=== PATIENT | female | born 1940 | race Caucasian/White ===

== ENCOUNTER 2020-09-14 20:02 | Emergency (ER) | payer OTHER ==
[~2020-09-14] VITALS: Ht 165.1 cm; Wt 131.5 kg
[2020-09-14 20:05] VITALS: BP_SYST 123
[2020-09-15] MEDS ORDERED: ACETAMINOPHEN 325 MG TABLET PO ONE
[2020-09-15 00:40] VITALS: BP_SYST 131
== END 2020-09-15 00:40 | disposition home or self-care (01) ==
LOC: SED 20:02
DX: T83.038A Leakage of other urinary catheter, initial encounter (principal)
CPT/HCPCS: 99284

== ENCOUNTER 2021-08-26 17:03 | Inpatient (IN) | payer OTHER ==
[~2021-08-26] VITALS: Ht 165.1 cm; Wt 97.2 kg
[~2021-08-26 17:03] MED LIST: CARV3.1246 PO; FURO-149 PO; FURO-150 PO; LEVO500T90 PO; LOPE2TAB25 PO; POTA15TA11 PO; SERT-131 PO
--- NOTE | 2021-08-26 17:08 | NUR ---
Patient to ER bed 07 to gown for evaluation. Side rails up.
[2021-08-26 17:09] VITALS: BP_SYST 137
--- NOTE | 2021-08-26 17:41 | NUR ---
Patient was BIB BLS from home c/o pain to bilateral buttocks and heels. Patient states she is bed bound post fall months ago. Asked to clarify details with . Patient is alert, oriented, answers questions appropriately but requests clarification with . Currrently is cared for by family and home health provider. Has nunes in place that has cloudy urine with sediment noted. Dr. Dias at bedside for assessment. Patient morbidly obese, turned to side to evaluate buttocks. 3 large/deep sores noted. Patient currently rates them as painful 3/10. Has healing sore to left heal. O2 sat in low 90s. Patient on 2L via nasal cannula, consistent with use at home. POC reviewed with patient.
--- NOTE | 2021-08-26 17:41 | NUR ---
ER at bedside examining patient.
--- NOTE | 2021-08-26 18:05 | NUR ---
Stepdaughter, Shanthi, is with the patient at the bedside. Stated sores to buttocks occurred approximately 7 weeks ago and she, the [facility] caregiver, has been requesting intervention. One week ago, wound care nurse evaluated and has been waiting for authorization for further evaluation/testing. Today, home health nurse visited patient, saw buttock sores and called 911 against the wishes of the family.
--- NOTE | 2021-08-26 18:43 | NUR ---
3 attempts at IV start unsuccessful, labs drawn by lab, covid and urine already sent
[2021-08-26 18:47] LABS: BILIRUBIN,URINE NEGATIVE (NEGATIVE); CLARITY/URINE CLEAR (CLEAR); COLOR,URINE YELLOW (YELLOW); GLUCOSE,URINE NEGATIVE (NEGATIVE); KETONES,URINE NEGATIVE (NEGATIVE); LEUKOCYTE ESTERASE ,URINE 3+ (NEGATIVE); NITRITE, URINE POSITIVE (NEGATIVE); PH,URINE 6.5 (5.0-8.0); PROTEIN URINE NEGATIVE (NEGATIVE); UROBILINOGEN,URINE 0.2 (0.2-1.0)
[2021-08-26 18:50] LABS: BLOOD, URINE TRACE (NEGATIVE)
[2021-08-26] MEDS ORDERED: POTA15TA11 PO (18:57)
--- NOTE | 2021-08-26 18:58 | NUR ---
Medication reconciliation completed with information provided by pts. stepdajeanie Maki, attempted to clarify some meds. and she was unable to fully assist, stated her dad handels meds. and list given to us not up to date. Pt. also not aware.
[2021-08-26 19:09] LABS: BASOPHILS % (AUTO) 0.4 % (0.0-2.0); EOSINOPHILS % (AUTO) 0.4 % (0.0-4.0); HEMATOCRIT 38.4 % (36-48); HEMOGLOBIN 12.4 g/dL (12.0-16.0); LYMPHOCYTES # (AUTO) 1.5 K/uL (1.0-5.5); LYMPHOCYTES % (AUTO) 15.3 % (20.5-51.5); MEAN CORPUSCULAR HEMOGLOBIN 27 pg (27-31); MEAN CORPUSCULAR HGB CONC 32 % (32-36); MEAN CORPUSCULAR VOLUME 83 fL (79.0-98.0); MONOCYTES # (AUTO) 0.6 K/uL (0.0-1.0); MONOCYTES % (AUTO) 5.9 % (1.7-9.3); NEUTROPHILS # (AUTO) 7.5 K/uL (1.8-7.7); PLATELET COUNT (AUTO) 308 K/uL (130-430); RED BLOOD CELL COUNT(AUTO) 4.65 MIL/uL (4.2-6.2); RED CELL DISTRIBUTION WIDTH 17.2 % (9.0-15.0); WHITE BLOOD COUNT (AUTO) 9.6 K/uL (4.8-10.8)
[2021-08-26 19:10] LABS: ANION GAP 7 (5-15); CALCIUM 8.5 mg/dL (8.4-11.0); CHLORIDE 99 mmol/L (98-107); CREATININE 0.76 mg/dL (0.55-1.30); GLUCOSE 92 mg/dL (70-99); POTASSIUM 4.6 mmol/L (3.5-5.1); SODIUM SERUM 140 mmol/L (136-145); UREA NITROGEN, BLOOD 10 mg/dL (8-21)
[2021-08-26 19:16] LABS: ALANINE AMINOTRANSFERASE 13 U/L (12-78); ALBUMIN 2.2 g/dL (3.4-4.8); ASPARTATE AMINOTRANSFERASE 21 U/L (10-37); TOTAL BILIRUBIN 0.4 mg/dL (0.0-1.0)
[2021-08-26 19:21] LABS: BACTERIA,URINE FEW /HPF (None Seen)
[2021-08-26 19:23] LABS: MUCUS,URINE 1+ /LPF (None Seen); YEAST,URINE Few /HPF (None Seen)
--- NOTE | 2021-08-26 19:33 | NUR ---
REPORT RECEIEVED, PT IN NAD. RESP EVEN AND UNLABORED, ON RA @97%. PT REQUESTING FOOD, WATER AND REPOSITIONING. ASSISTED WITH ALL THREE REQUESTS WITH MAXIMUM ASSIST OF STUDENT NURSE. SAFETY PRECAUTIONS IN PLACE. VSS.
[2021-08-26] MEDS ORDERED: cefTRIAXone 1 GM IVPB PREMIX 50 ML IV ONE (19:45)
--- NOTE | 2021-08-26 19:57 | NUR ---
REPORT GIVEN TO RAHEEM CARMICHAEL, UPDATED ON STATUS AND PLAN OF CARE.
[2021-08-26] MEDS ORDERED: VANCOMYCIN HCL 1,000 MG in NS 250 ML IV ONE (20:15)
[2021-08-26] MEDS ORDERED: ONDANSETRON HCL 4 MG/2 ML VIAL IVP PRN (22:00)
[2021-08-27] VITALS (8 sets, daily range): BP systolic 52–137
[2021-08-27] MEDS ORDERED: VANCOMYCIN HCL 1000 MG/VIAL IV ONE (02:00)
--- NOTE | 2021-08-27 02:25 | NUR ---
REPORT RECIEVED FROM RAHEEM CARMICHAEL. CN INFORMED OF NO DOCUEMENTATION IN BETWEEN.
--- NOTE | 2021-08-27 02:29 | NUR ---
Admit bed requested Patient will be admitted to care of . Admitted to MS unit. Diagnosis UTI/DECUBITUS ULCER Inpatient (Yes or No) Y Observation (Yes or No) N Orientation concerns or request close to nursing station (Yes or No) N Covid Status NEG On vent or bipap N Isolation requirements N Needs a sitter N From Home (Yes or if No enter name of facility) Y Requires Dialysis (Yes or No) N Med Rec Completed (Yes of No) N-PT DOES NOT RECALL
--- NOTE | 2021-08-27 02:31 | NUR ---
SPOKE TO RYNE CARMICHAEL, INFORMED THAT WE NEED BED ASSIGNEMENT
[2021-08-27] MEDS: NORMAL SALINE 5 ML DISP.SYRIN IVF SCH ×4 (02:33→20:53)
--- NOTE | 2021-08-27 02:34 | NUR ---
PT WITH EYES CLOSED, EASILY AROUSBALE. PT IN NAD. DENIES ANY PAIN AT THIS TIME, REPOSITIONED FOR COMFORT, IV VANCO INFUSING VIA PUMP ORDERED.
--- NOTE | 2021-08-27 03:01 | NUR ---
REPORT GIVEN TO RUCHI CARMICHAEL, UPDATED ON STATUS, LABS AND VITALS. PT STABLE FOR TRANSFER.
--- NOTE | 2021-08-27 04:00 | NUR ---
ADMISSION: The patient, MAIKEL LOZANO, 81 y/o, F admitted by AMADOR AGUILAR MD, was given written information regarding hospital policies, unit procedures and contact persons, belongings were checked and documented, pressure ulcer pictures taken and place in the chart, wound dressing done, pt aox2 episodes of confusion and forgetfulness, hard of hearing pt denies, report problem with vision denies any blindness,denies any medical condition, pt repositioned per comfort, side rails upx2, bed in lowest position, call light within reach, heels off loaded with pillows, wound culture swab and mrsa done and sent to lab, educated pt to call for assistance when needed, pt verbalized understanding, will continue to monitor.
--- NOTE | 2021-08-27 06:08 | NUR ---
PT RESTING COMFORTABLY IN BED, DENIES PAIN, NO S/S OF DISTRESS OR DISCOMFORT NOTED, REPOSITIONED PER COMFORT, WILL CONTINUE TO MONITOR.
--- NOTE | 2021-08-27 06:19 | NUR ---
Patient will be admitted to care of DR AGUILAR. Admitted to unit. Will go to room . Belongings list completed. Complete and up to date summary report printed. SBAR report to be given at bedside with opportunity for questions.
--- NOTE | 2021-08-27 07:33 | NUR ---
SHIFT CHANGE NOTE REPORT GIVEN TO JANY ALEXANDER FOR CONTINUITY OF CARE, ALL QUESTIONS WERE ANSWERED AND RN VERBALIZED UNDERSTANDING.
[2021-08-27 07:44] LABS: BASOPHILS % (AUTO) 0.4 % (0.0-2.0); EOSINOPHILS % (AUTO) 0.3 % (0.0-4.0); HEMATOCRIT 35.6 % (36-48); HEMOGLOBIN 11.6 g/dL (12.0-16.0); LYMPHOCYTES # (AUTO) 0.9 K/uL (1.0-5.5); LYMPHOCYTES % (AUTO) 10.7 % (20.5-51.5); MEAN CORPUSCULAR HEMOGLOBIN 27 pg (27-31); MEAN CORPUSCULAR HGB CONC 32 % (32-36); MEAN CORPUSCULAR VOLUME 82 fL (79.0-98.0); MONOCYTES # (AUTO) 0.5 K/uL (0.0-1.0); MONOCYTES % (AUTO) 6.6 % (1.7-9.3); NEUTROPHILS # (AUTO) 6.6 K/uL (1.8-7.7); PLATELET COUNT (AUTO) 314 K/uL (130-430); RED BLOOD CELL COUNT(AUTO) 4.36 MIL/uL (4.2-6.2); RED CELL DISTRIBUTION WIDTH 17.2 % (9.0-15.0); WHITE BLOOD COUNT (AUTO) 8.1 K/uL (4.8-10.8)
[2021-08-27 08:02] LABS: ALANINE AMINOTRANSFERASE 15 U/L (12-78); ALBUMIN 2.2 g/dL (3.4-4.8); ANION GAP 6 (5-15); ASPARTATE AMINOTRANSFERASE 20 U/L (10-37); CALCIUM 7.9 mg/dL (8.4-11.0); CHLORIDE 98 mmol/L (98-107); CREATININE 0.69 mg/dL (0.55-1.30); GLUCOSE 85 mg/dL (70-99); SODIUM SERUM 139 mmol/L (136-145); TOTAL BILIRUBIN 0.4 mg/dL (0.0-1.0); UREA NITROGEN, BLOOD 9 mg/dL (8-21)
[2021-08-27 08:59] LABS: POTASSIUM 2.9 mmol/L (3.5-5.1)
--- NOTE | 2021-08-27 09:00 | NUR ---
CRITICAL LAB: [place] from Laboratory called with critical lab value . Medical record number and patient name verified. Read back of values done. Paged Dr. Royal to notify of value. Awaiting for call back and orders.
--- NOTE | 2021-08-27 09:02 | NUR ---
PAGED PAGED AMADOR WISEMAN AT [phone] SPOKE WITH COLLETTE.
--- NOTE | 2021-08-27 09:25 | NUR ---
APS report made, case # [id number], SOC form completed and emailed back, our social service dept. also aware
[2021-08-27] MEDS ORDERED: POTASSIUM CHLORIDE 20 MEQ/PKT PACKET PO ONE (10:00)
--- NOTE | 2021-08-27 10:00 | NUR ---
CONSULTATION PAGED/CALLED Reason for Consultation: [] DECUBITUS ULCER Person Who was Notified: [] SEAN Consulting Physician: [] DR CHAVEZ Experimental Technician Specialty: [] ID Ordering Physician: [] DR AGUILAR
--- NOTE | 2021-08-27 10:57 | NUR ---
Bean Picker Machine Operator DIGITAL MARKETING ANALYSTDeb Cabrera received a request from ED JANY Sprague for support with APS report completion. OJ Cabrera scanned and emailed JANY Sprague's completed report to; [email or web address] DIGITAL MARKETING ANALYST will continue to be available as needed
--- NOTE | 2021-08-27 11:20 | NUR ---
Cage Operator OJ Bundyette responded to a request for social service support from ED RN Darcie to inquire into home situation. SPEECH LANGUAGE PATHOLOGY ASSISTANT Deborah met with patient at bedside. Patient was laying in bed, awake, alert and oriented x4. SPEECH LANGUAGE PATHOLOGY ASSISTANT completed introductions, reason for referral, and provided business card. Patient was open to contact. Current concern-Patient resides at home with and stepdaughter. Patient shares she has bedbound for several months, and expressed this was due to pain from wounds and obesity. She was brought in via ambulance due to 3 large decubitus ulcers on buttocks. Social- Patient resides with her Renato Peace . Her step-daughter Shanthi Peace moved into their home in 02/2021 to assist and support with care. Patient also has a daughter Deirdre who resides in [place] and a son Kevin who resides in [place]. to clarify previous notes from ED, according to patient she does not receive IHSS services, Shanthi (step-daughter) is a caregiver under IHSS for her younger brother who is not in the home Supports- Patient shares she receives the following: Home health care via [facility], but it has been discontinued due to hospitalization. This including nurse 1x weekly for Landrum care, bathing (Tuesday & ) and 1x wound assessment Wound Care- Ariel with [facility] wound care nurse 1x week PCP- Dr. Kayleigh Henry Cultural/Spiritual considerations- Patient shared she is Hoahaoism, and refrains from caffeine and alcohol ingestion. SPEECH LANGUAGE PATHOLOGY ASSISTANT encouraged patient to utilize her family for additional support at home. Patient shares she is feeling "a little depressed" due to a lack of socialization. She shared she was a "social butterfly" and was active in her uatsdin prior to COVID. Patient denies any past or current SI. SPEECH LANGUAGE PATHOLOGY ASSISTANT informed patient that she can request for spiritual support while in the hospital including bedside prayer if person is vaccinated or can supply negative COVID test. SPEECH LANGUAGE PATHOLOGY ASSISTANT encouraged patient to reach out to uatsdin groups for additional support. SPEECH LANGUAGE PATHOLOGY ASSISTANT will continue to be available as needed. Addendum: 08/27/21 at 1616 by Deborah MCWILLIAMS OJ Cabrera met with patient and patient's marixa Maki at bedside. In an effort to offer support, OJ inquired into [facility] faxing an appeal to facility regarding discharge as patient has not received a discharge order. According to patient and Shanthi, they have not contacted [facility]. Shanthi also shared her father Renato (patient's ) had been contacted Tuesday08/26/2021 night by [facility], but was unsure of the details. According to Shanthi, patient's home health provider [facility] has discharged her due to hospitalization and expressed a concern that that may be who contacted [facility]. Concerns- Patient and Shanthi expressed their concerns if patient will need home health care particularly if they will be assigned [facility]. According to Shanthi, they had shared concerns over patient's wounds to nurse but they were told "it's not in our orders to do that" hence their uncomfortableness with utilizing same provider if the need arises. DME- Shanthi shared the patient also has bariatric wheelchair, bariatric commode, kwesi lift, and a chair that assist her with standing up.
[2021-08-27] MEDS: VANCOMYCIN HCL 1,500 MG in NS 250 ML IV SCH (14:30)
--- NOTE | 2021-08-27 15:00 | NUR ---
Wound assessment done with Gopi CARMICHAEL with wound care recommendation.
--- NOTE | 2021-08-27 15:00 | NUR ---
Wound Evaluation Attempted: Attempted wound evaluation but was called away for an urgent matter. We will perform wound evaluation on 08/28/2021.
--- NOTE | 2021-08-27 15:30 | NUR ---
Pt refused to change nunes with 16 icelandic nunes at this time. pt requesting to replace with the same size she currently has, 24f nunes. Gopi RN to assist me with looking for 24 icelandic nunes.
--- NOTE | 2021-08-27 16:02 | NUR ---
Received a phone call and FAX from [facility] case #[id number] for the patient, requested medical records. I called back to [facility] [phone] and left a message stating there was no discharge to be appealed.
--- NOTE | 2021-08-27 16:36 | NUR ---
CONSULTATION PAGED/CALLED Reason for Consultation: [] DIARRHEA Person Who was Notified: [] CHEMA Consulting Physician: [] DR Bryan HERNANDEZ Laserist Specialty: [] GI Ordering Physician: [] DR AGUILAR
--- NOTE | 2021-08-27 16:36 | NUR ---
CONSULTATION PAGED/CALLED Reason for Consultation: [] CHF Person Who was Notified: [] MARIA LUISA Consulting Physician: [] DR HYMAN Hot Water Heater Installer Specialty: [] CARDIO Ordering Physician: [] DR AGUILAR
--- NOTE | 2021-08-27 16:39 | NUR ---
CONSULTATION PAGED/CALLED Reason for Consultation: [] LEG WEAKNESS Person Who was Notified: [] DR Donavon KEENE Consulting Physician: [] DR Donavon KEENE Proof Press Operator Specialty: [] NEURO Ordering Physician: [] DR AGUILAR
[2021-08-27] MEDS ORDERED: BALSAM PERU/CASTOR OIL 56.7 GM OINT...G. TP ONE (17:00)
[2021-08-27] MEDS: FLUCONAZOLE 100 mg/ NS 50 ML IV SCH (17:30)
[2021-08-27] MEDS: FUROSEMIDE 20 MG TABLET PO SCH (18:00)
--- NOTE | 2021-08-27 18:00 | NUR ---
Removed 24 jamaican nunes and attempted to replace with the same size. Unable to place 24 jamaican for there was resistance. 4 rns attempted to insert new nunes without success. Able to insert 16 jamaican nunes draining with yellow cloudy urine. Inserted flexiseal to protect skin. Pt has frequent loose/diarrhea stool. Stool for C-diff sent.
--- NOTE | 2021-08-27 19:00 | NUR ---
Unable to initiate wound dressing to bilateral ishium. Awaiting for venelex ointment. All supply at bedside except oinment.
[2021-08-27] MEDS ORDERED: cefTRIAXone 1 GM IVPB PREMIX 50 ML IV SCH (19:45)
--- NOTE | 2021-08-27 20:00 | NUR ---
RECIEVED IN BED ASSESSMENT COMPLETE PLAN OF CARE REVIEWED CALL LIGHT IN REACH AND PT ADVISED TO USE CALL LIGHT FOR ASSISTANCE. PT MONTOYA CATHETER IN PLACE AND DRAINING FLEXISEAL IN PLACE WITH STOOL NOTED IN DRAINGE BAG PT DRESSING CHANGED TO BILATERAL ISCHIUM WILL TURN AND REPOSTION Q 2 HOURS PT DENIES PAIN AT THIS TIME AND ENDORSES SHE TAKES MEDICAITON AT HOME TO SLEEP BUT COULD NOT RECALL MEDICAITON NOTIFIED AND NEW ORDER FOR ADRIANA X1 ORDERED WILL CONTINUE TO MONITOR AND ASSESS
[2021-08-27] MEDS ORDERED: ZOLPIDEM TARTRATE 5 MG TABLET PO ONE (20:15)
[2021-08-27] MEDS: CEFEPIME 2 GM in D5W 100 ML IV SCH (20:46)
[2021-08-27] MEDS: CARVEDILOL 3.125 MG TABLET (COREG) PO SCH (20:47)
--- NOTE | 2021-08-27 23:42 | NUR ---
RESTING AMBIEN GIVEN TURNED AND REPOSITIONED CALL LIGHT IN REACH WILL CONTINUE TO MONITOR AND ASSESS
[2021-08-28 00:44] VITALS: BP_SYST 113
--- NOTE | 2021-08-28 05:55 | NUR ---
NO SIGNIFICANT CHANGES AT THIS TIME ALL NEEDS ANTICIPATED TURNED AND REPOSITIONED Q 2 HOURS WILL ENDORSE CARE TO ONCOMING LICENSED NURSE
[2021-08-28] MEDS: NORMAL SALINE 5 ML DISP.SYRIN IVF SCH ×3 (06:18→20:49)
--- NOTE | 2021-08-28 07:20 | NUR ---
OPENING NOTE: REPORT RCVD FROM OUTGOING NOC RN, ALL CARES ASSUMED. (JANY LUQUE)
[2021-08-28 07:22] LABS: BASOPHILS % (AUTO) 0.4 % (0.0-2.0); EOSINOPHILS % (AUTO) 0.4 % (0.0-4.0); HEMOGLOBIN 10.8 g/dL (12.0-16.0); LYMPHOCYTES # (AUTO) 1.1 K/uL (1.0-5.5); LYMPHOCYTES % (AUTO) 14.2 % (20.5-51.5); MEAN CORPUSCULAR HEMOGLOBIN 27 pg (27-31); MEAN CORPUSCULAR HGB CONC 33 % (32-36); MEAN CORPUSCULAR VOLUME 82 fL (79.0-98.0); MONOCYTES # (AUTO) 0.6 K/uL (0.0-1.0); MONOCYTES % (AUTO) 7.8 % (1.7-9.3); NEUTROPHILS # (AUTO) 5.8 K/uL (1.8-7.7); NEUTROPHILS % (AUTO) 77.2 % (40.0-70.0); PLATELET COUNT (AUTO) 278 K/uL (130-430); RED BLOOD CELL COUNT(AUTO) 4.04 MIL/uL (4.2-6.2); RED CELL DISTRIBUTION WIDTH 17.1 % (9.0-15.0); WHITE BLOOD COUNT (AUTO) 7.5 K/uL (4.8-10.8)
--- NOTE | 2021-08-28 07:36 | NUR ---
DR. HYMAN MAKING ROUNDSMD AT BEDSIDE VERBAL REPORT GIVEN, TO REVIEW CHART AND PLACE NEW ORDERS.
--- NOTE | 2021-08-28 07:51 | NUR ---
DR. KEENE MAKING ROUNDS, VERBAL BEDSIDE REPORT GIVEN.
[2021-08-28 08:23] LABS: ALANINE AMINOTRANSFERASE 10 U/L (12-78); ALBUMIN 2.1 g/dL (3.4-4.8); ANION GAP 3 (5-15); ASPARTATE AMINOTRANSFERASE 18 U/L (10-37); CALCIUM 7.7 mg/dL (8.4-11.0); CHLORIDE 102 mmol/L (98-107); CREATININE 0.73 mg/dL (0.55-1.30); GLUCOSE 94 mg/dL (70-99); POTASSIUM 3.7 mmol/L (3.5-5.1); SODIUM SERUM 138 mmol/L (136-145); TOTAL BILIRUBIN 0.3 mg/dL (0.0-1.0); UREA NITROGEN, BLOOD 11 mg/dL (8-21)
--- NOTE | 2021-08-28 08:51 | NUR ---
PATIENT TAKEN TO CT BY JANAE PIERRE
[2021-08-28] MEDS: BALSAM PERU/CASTOR OIL 56.7 GM OINT...G. TP SCH (09:00)
--- NOTE | 2021-08-28 09:15 | NUR ---
Received a phone call from [facility] closed-there is no DC for the patient.
[2021-08-28] MEDS: CEFEPIME 2 GM in D5W 100 ML IV SCH ×2 (09:20→20:48)
[2021-08-28] MEDS: FUROSEMIDE 40 MG TABLET PO SCH (09:21)
[2021-08-28] MEDS: CARVEDILOL 3.125 MG TABLET (COREG) PO SCH ×2 (09:21→20:48)
[2021-08-28] MEDS: POTASSIUM CHLORIDE 20 MEQ TAB.PRT.SR PO SCH ×2 (09:21→20:48)
--- NOTE | 2021-08-28 10:01 | NUR ---
DR. AGUILAR MAKING ROUNDS, BEDSIDE REPORT GIVEN. MD TO REVIEW CHART AND PLACE ORDERS.
[2021-08-28 11:31] VITALS: BP_SYST 125
--- NOTE | 2021-08-28 12:08 | NUR ---
PHYSICAL THERAPY AT SIDE ASSESSING PATIENT.
--- NOTE | 2021-08-28 13:11 | NUR ---
RN ROUNDS: AMBER-CARE AND MONTOYA CARE PROVIDED WITH USING CHG WIPES, PATIENT TOLERATED WELL. LARGE LIQUID STOOL, WOUND NURSE TO ASSIST WITH WOUND CARE AT 1400.
--- NOTE | 2021-08-28 13:45 | NUR ---
<PT TREATMENT ONCE DAILY X 5 DAYS WEEKLY X 4 WEEKS FOR TRAINING, IN: THERAPEUTIC ACTIVITY, THERAPEUTIC EXERCISE, CAREGIVER, ASSISTANCE.>
--- NOTE | 2021-08-28 14:55 | NUR ---
WOUND CARE COMPLETED WITH WOUND NURSE.
[2021-08-28] MEDS: VANCOMYCIN HCL 1,500 MG in NS 250 ML IV SCH (14:56)
--- NOTE | 2021-08-28 15:04 | NUR ---
WOUND EVALUATION: Wound Consult received from Dr. Royal. Thank you, Dr. Royal, for the consult. Patient received in a Mooers Bed with a mattress, awake, alert, and oriented. Patient is unable to turn independently. Nitish Score is a 12. Past Medical History: Atrial-Fibrillation, CHF. Recent Labs: WBC 7.5, RBC 4.04, hemoglobin 10.8, hematocrit 33.0, ESR 28, BUN 11, creatinine 0.73, calcium 7.7, ALT 10, serum total protein 5.0, albumin 2.1. Microbiology: Urine culture results in progress. Pressure ulcer culture results in progress. MRSA screen results in progress. Stool C. difficile results in progress. Blood culture results x2 in progress. Intrinsic factors that delay wound healing: Atrial-Fibrillation, CHF, Hypoalbuminemia. Extrinsic factors that delay wound healing: Decreased mobility. Wound Assessment: 1. Left Buttock near Ischium: Unstageable pressure ulcer, present on admission. Wound bed has 50% black slough, 40% yellow slough, 10% pink tissue. No odor, scant yellow drainage. Periwound intact. Wound measures 12.6 cm x 8.0 cm x 2.5 cm. Sinus tract present at 8 o'clock measuring 2.0 cm. 2. Right Buttock near Ischium: Stage IV pressure ulcer, present on admission. Wound bed has 55% yellow slough, 40% black slough, 5% pink tissue. No odor, scant yellow drainage. Periwound intact. Wound measures 7.0 cm x 5.4 cm x 5.0 cm. Sinus tract present at 8 o'clock measuring 5.0 cm. Sinus tract present at 11 o'clock measuring 7.8 cm with hard end feel Recommend: Cleanse wounds with normal saline. Apply Venelex ointment to wound beds. First pack sinus tract areas, then pack wound areas with 1/2 inch iodoform packing strip. Apply moisture barrier cream to bethel-wounds. Cover with non-adhesive foam dressings, secure with transparent dressings. Perform wound care daily, and as needed for dressing soiling or dislodgement. 3. Left Heel Chronic unstageable pressure ulcer, present on admission. Wound bed has 80% brown eschar, 10% black eschar, 10% yellow eschar. No odor, no drainage. Periwound intact. Wound measures 1.0 cm x 1.1 cm. Recommend: [place] wound site with Betadine. Allowed to air dry. Cover wound site with foam dressing. Elevate, offload and float bilateral heels with 1 pillow lengthwise under each extremity at all times. Not allow heel to touch bed or other surfaces at any time. 4. Right Heel: Blanchable redness, present on admission. Recommend: Elevate, offload and float bilateral heels with 1 pillow lengthwise under each extremity at all times. Not allow heel to touch bed or other surfaces at any time. Also recommend: Reposition patient side to side only every 2 hours with pillow support and off-load pressure areas with pillows for pressure re-distribution. Offload, elevate and float bilateral heels with one pillow lengthwise under each extremity at all times. Perform skin care and monitor skin integrity Q shift. Use moisture barrier cream on buttocks and other moisture susceptible areas QID and as needed for soiling. Place patient on a P500 low air-loss mattress. Recommend surgical consult for removal of necrotic tissue to enhance wound healing abilities.
[2021-08-28 15:47] VITALS: BP_SYST 130
--- NOTE | 2021-08-28 17:32 | NUR ---
DR. MORALES AT BEDSIDE ASSESSING WOUNDS, TO SCHEDULE SURGERY FOR TOMORROW AM 08.29.2021 FOR WOUND DEBRIDEMENT.
[2021-08-28] MEDS: FLUCONAZOLE 100 mg/ NS 50 ML IV SCH (17:34)
--- NOTE | 2021-08-28 17:40 | NUR ---
SHERIFF OLMOS AT BEDSIDE SPEAKING TO PATIENT.
[2021-08-28] MEDS: FUROSEMIDE 20 MG TABLET PO SCH (18:19)
--- NOTE | 2021-08-28 18:57 | NUR ---
CLOSING NOTE: REPORT GIVEN TO NOC RN, ALL CARE ENDORSED.
[2021-08-28 19:30] VITALS: BP_SYST 110
--- NOTE | 2021-08-28 19:30 | NUR ---
PM ASSESSMENT; -Pt is a/ox3, resting in bed. Pt denies any chest pain,pain,sob,or any acute distress. VSS. IV site patent, no s/s any infiltration noted. Landrum cath w/ gravity drains yellow urine output. Flexiseal in place drains loose yellow stool. 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 MORALES unscheduled time for tomorrow, pt verbalized understanding. Fall precaution in place. Call light w/in reach. Side rails x3. Turned & repositioned and q2 hrs prn. Continue to monitor pt.
[2021-08-28] MEDS: ACETAMINOPHEN 325 MG TABLET PO PRN (20:58)
--- NOTE | 2021-08-28 20:58 | NUR ---
PAIN MGMT; -Pt is c/o generalized pain 3/10, gave Tylenol po for pain mgmt. Will reassess pain level w/in an hour.
--- NOTE | 2021-08-28 21:58 | NUR ---
ROUNDS; -Pt is asleep. NO s/s any pain,sob,or any acute distress noted. All safety measures in place. Bed alarmed. Call light w/in reach. Cont to monitor pt.
--- NOTE | 2021-08-28 22:15 | NUR ---
NOTES; PAGED DR. MORALES REGARDING PT WILL BE NPO AFTER MIDNIGHT AND NO IVF ORDER -called and spoke with Rah (heater operator helper) to page Dr. Morales regarding pt will be NPO after midnight and no IVF order. Now, waiting for md to return callback.
--- NOTE | 2021-08-28 22:35 | NUR ---
NOTES; Dr. Chavis called back and ordered NS @ 70ml/hr after midnight when pt is NPO
[2021-08-28] MEDS ORDERED: NACL 0.9% 1,000 ML IV SCH (22:45)
--- NOTE | 2021-08-29 00:05 | NUR ---
ROUNDS; NPO STATUS AFTER MIDNIGHT -Pt is asleep. NO s/s any pain,sob,or any acute distress noted. Starting NS @70ml/hr after NPO status. All safety measures in place. Bed alarmed. Call light w/in reach. Cont to monitor pt.
[2021-08-29 01:50] VITALS: BP_SYST 119
--- NOTE | 2021-08-29 02:00 | NUR ---
ROUNDS; -Pt is asleep. NO s/s any pain,sob,or any acute distress noted. IVF infusing well, no s/s any infiltration noted. All safety measures in place. Bed alarmed. Call light w/in reach. Cont to monitor pt.
[2021-08-29] MEDS: NORMAL SALINE 5 ML DISP.SYRIN IVF SCH (05:09)
--- NOTE | 2021-08-29 06:35 | NUR ---
CLOSING NOTES; -Pt is resting in bed. No s/s any chest pain,pain,sob,or any acute distress noted. IVF infusing well. IV site patent, no s/s any infiltration noted. Landrum cath w/ gravity drains yellow urine output. Flexiseal in place drains loose yellow and semi solid stool noted. 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 MORALES unscheduled time for tomorrow, pt verbalized understanding. Fall precaution in place. Call light w/in reach. Side rails x3. Will endorse to day shift RN to cont care.
[2021-08-29 07:19] LABS: PROTHROMBIN TIME 10.6 SECS (9.5-12.5)
--- NOTE | 2021-08-29 07:34 | NUR ---
OPENING NOTE: REPORT RCVD FROM OUTGOING NOC RN, ALL CARES ASSUMED. (JANY LUQUE)
--- NOTE | 2021-08-29 08:30 | NUR ---
DR. MORALES SPOKE WITH OVER PHONE, CONSENT RC'VD OVER PHONE FOR PROCEDURE. PRIMARY NURSE SERVED WITNESS, CONSENT SIGNED.
--- NOTE | 2021-08-29 08:45 | NUR ---
PER MD PATIENT REMAINS NPO FOR SURGERY, NO AM MEDICATIONS GIVEN.
[2021-08-29] MEDS: CEFEPIME 2 GM in D5W 100 ML IV SCH ×2 (08:57→22:13)
[2021-08-29] MEDS: POTASSIUM CHLORIDE 20 MEQ TAB.PRT.SR PO SCH ×2 (09:00→20:37)
[2021-08-29] MEDS: FUROSEMIDE 40 MG TABLET PO SCH (09:00)
[2021-08-29] MEDS: CARVEDILOL 3.125 MG TABLET (COREG) PO SCH ×2 (09:00→20:37)
--- NOTE | 2021-08-29 09:00 | NUR ---
DR. MORALES MAKING ROUNDS, PER DR. MOARLES SURGERY HAS BEEN CANCELLED DUE TO SCHEDULE CONFLICT. PER DR. MORALES HE WILL MAKE STAFFING AWARE OF NEW TIME FOR PROCEDURE. CHARGE NURSE HAS BEEN MADE AWARE AND LABORER OPERATOR AWARE.
[2021-08-29] MEDS: BALSAM PERU/CASTOR OIL 56.7 GM OINT...G. TP SCH (09:53)
--- NOTE | 2021-08-29 10:42 | NUR ---
PER DR. MORALES PATIENT TO REMAIN NPO
--- NOTE | 2021-08-29 10:44 | NUR ---
DR. CASTILLO MAKING ROUNDS, VERBAL BEDSIDE REPORT GIVEN. NO NEW ORDERS AT THIS TIME.
[2021-08-29] MEDS: D5/0.45 NS 1,000 ML IV SCH ×2 (11:31→22:13)
--- NOTE | 2021-08-29 13:44 | NUR ---
PATIENT PLACED ONTO CONTACT ISOLATION FOR CHEMICAL LABORATORY CHIEF PER LAB RESULTS, AWARE.
--- NOTE | 2021-08-29 14:01 | NUR ---
DR. ARAIZA MAKING ROUNDS, VERBAL BEDSIDE REPORT GIVEN NO NEW ORDERS FROM NEUROLOGY.
--- NOTE | 2021-08-29 14:08 | NUR ---
PAGED DR. HOWELL TO MAKE HER AWARE OF CULTURE RESULTS, PENDING RETURN CALL.
--- NOTE | 2021-08-29 14:18 | NUR ---
SPOKE WITH DR. LYNDA MD AWARE OF CRUSHER FOREMAN CULTURE RESULTS, NO NEW ORDERS. CONTINUE WITH CURRENT ABX TREATMENT PLAN,
--- NOTE | 2021-08-29 15:01 | NUR ---
Dietitian Recommendations * Consider advance to Cardiac diet, Ensure Enlive BID, Rajesh BID if/when medically appropriate LP, RD Please refer to Nutrition Assessment for details. Addendum: 08/29/21 at [address] Amended: Links added.
[2021-08-29] MEDS: VANCOMYCIN HCL 1,500 MG in NS 250 ML IV SCH (15:35)
--- NOTE | 2021-08-29 15:54 | NUR ---
PIV TO LEFT FOREARM INFILTRATED, PIV REMOVED AND WARM COMPRESS APPLIED. PATIENT DENIES ANY PAIN AND OR DISCOMFORT.
--- NOTE | 2021-08-29 15:56 | NUR ---
PATIENT IS A DIFFICULT PIV STICK, UNABLE TO GAIN PIV ACCESS. PAGED FOR PICC ORDER FOR RESIDENTIAL USE OF ANTIBIOTIC THERAPY.
--- NOTE | 2021-08-29 15:59 | NUR ---
PICC LINE ORDER OBTAINED FROM
--- NOTE | 2021-08-29 16:00 | NUR ---
CONSENT OBTAINED FROM MARIO AND VERIFIED BY SECOND RN FOR PICC PLACEMENT.
[2021-08-29 17:01] VITALS: BP_SYST 103
--- NOTE | 2021-08-29 17:01 | NUR ---
PICC NURSE CALLED, WILL COME AND PLACE PICC ON NOC SHIFT.
[2021-08-29] MEDS: FLUCONAZOLE 100 mg/ NS 50 ML IV SCH (17:03)
--- NOTE | 2021-08-29 17:03 | NUR ---
UNABLE TO ADMINISTER IVPB ANTIBIOTICS, PATIENT HAS NO IV ACCESS.
[2021-08-29] MEDS: FUROSEMIDE 20 MG TABLET PO SCH (18:00)
--- NOTE | 2021-08-29 18:51 | NUR ---
CLOSING NOTE: REPORT GIVEN TO OUT GOING NOC RN, ALL CARES ENDORSED.
[2021-08-29 19:40] VITALS: BP_SYST 100
--- NOTE | 2021-08-29 19:40 | NUR ---
PM ASSESSMENT; -Pt is a/ox3, resting in bed. Pt denies any chest pain,pain,sob,or any acute distress. Tavo-PICC line RN is here to insert PICC line. NO IV access this time. Landrum cath w/ gravity drains yellow urine output. Flexiseal in place. 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 MORALES unscheduled time for tomorrow, pt verbalized understanding. Contact isolation for SILVERWARE WASHER of wounds and urine. Fall precaution in place. Call light w/in reach. Side rails x3. Turned & repositioned and q2 hrs prn. Continue to monitor pt.
--- NOTE | 2021-08-29 20:22 | NUR ---
NOTES; Tavo-PICC Line RN inserted 2 ports PICC line or Rt upper extremity and CXR confirmed in place. -Corbin stated," It's ok to use PICC line of RUE with 2 ports." Both ports of PICC line good blood returns after flushed w/ NS,drsg cdi. Starting to complete Vancomycin IVPB from day shift. Cont to monitor if any s/s any infiltration.
--- NOTE | 2021-08-29 22:12 | NUR ---
ROUNDS; -Pt awake, resting in bed.Pt denies any pain,sob,or any acute distress. RUE PICC line drsg cdi, no s/s any infiltration noted. Infusing Maxipime IVPB. Contact isolation in place. All safety measures in place. Bed alarmed. Call light w/in reach. Cont to monitor pt.
--- NOTE | 2021-08-30 | NUR ---
ROUNDS; -Pt is resting in bed comfortably. Pt denies any pain,sob,or any acute distress. RUE PICC line drsg cdi, no s/s any infiltration noted. IVF infusing well. Contact isolation in place. All safety measures in place. Bed alarmed. Call light w/in reach. Cont to monitor pt.
[2021-08-30 00:29] VITALS: BP_SYST 133
--- NOTE | 2021-08-30 02:00 | NUR ---
ROUNDS; -Pt is asleep. No s/s any pain,sob,or any acute distress noted. IVF infusing well. Contact isolation in place. All safety measures in place. Bed alarmed. Call light w/in reach. Cont to monitor pt.
--- NOTE | 2021-08-30 05:00 | NUR ---
NOTES;WOUND CARES & DRSG CHANGED OF LEFT & RT ISCHIUM -cleaned w/ NS, applied Venelex on wound beds; packing with 1/2 inch iodofoam with non-adhesive foam and adhesive foam over it. now melita ischium drsgs cdi, pt tolerated well.
--- NOTE | 2021-08-30 06:26 | NUR ---
CLOSING NOTES; -Pt is resting in bed. No s/s any chest pain,pain,sob,or any acute distress noted. IVF infusing well. RUE PICC line drsg, no s/s any infiltration noted. Landrum cath w/ gravity drains yellow urine output. Flexiseal in place drains loose yellow and semi solid stool noted. Pt will have debridement rt & lt trochenteric decubitus gangrene infected wounds by Dr. Chavis around 1300. Fall precaution in place. Call light w/in reach. Side rails x3. Maintains contact isolation entire time. Will endorse to day shift RN to cont care.
[2021-08-30 06:49] LABS: BASOPHILS % (AUTO) 0.5 % (0.0-2.0); EOSINOPHILS % (AUTO) 0.5 % (0.0-4.0); HEMATOCRIT 34.3 % (36-48); HEMOGLOBIN 11.2 g/dL (12.0-16.0); LYMPHOCYTES # (AUTO) 0.9 K/uL (1.0-5.5); LYMPHOCYTES % (AUTO) 15.5 % (20.5-51.5); MEAN CORPUSCULAR HEMOGLOBIN 27 pg (27-31); MEAN CORPUSCULAR HGB CONC 33 % (32-36); MEAN CORPUSCULAR VOLUME 82 fL (79.0-98.0); MONOCYTES # (AUTO) 0.4 K/uL (0.0-1.0); MONOCYTES % (AUTO) 6.4 % (1.7-9.3); NEUTROPHILS # (AUTO) 4.7 K/uL (1.8-7.7); NEUTROPHILS % (AUTO) 77.1 % (40.0-70.0); PLATELET COUNT (AUTO) 234 K/uL (130-430); RED BLOOD CELL COUNT(AUTO) 4.18 MIL/uL (4.2-6.2); RED CELL DISTRIBUTION WIDTH 17.5 % (9.0-15.0)
[2021-08-30 07:03] LABS: ANION GAP 5 (5-15); CALCIUM 7.5 mg/dL (8.4-11.0); CHLORIDE 102 mmol/L (98-107); CREATININE 0.66 mg/dL (0.55-1.30); GLUCOSE 83 mg/dL (70-99); POTASSIUM 3.1 mmol/L (3.5-5.1); SODIUM SERUM 139 mmol/L (136-145); UREA NITROGEN, BLOOD 11 mg/dL (8-21)
--- NOTE | 2021-08-30 08:00 | NUR ---
RECEIVED PT IN THE AM PT STABLE VSS NO DISTRESS NOTED, PT CALM COOPERATIVE, SCHEDULED FOR SURGERY TODAY PT AWARE NPO SINCE MIDNIGHT, PT STABLE.
[2021-08-30 08:17] LABS: C-REACTIVE PROTEIN QUANT 2.6 mg/dL (0-0.5)
[2021-08-30] MEDS: POTASSIUM CHLORIDE 20 MEQ TAB.PRT.SR PO SCH ×2 (09:00→21:40)
[2021-08-30] MEDS: BALSAM PERU/CASTOR OIL 56.7 GM OINT...G. TP SCH (09:00)
[2021-08-30] MEDS: FUROSEMIDE 40 MG TABLET PO SCH (09:00)
[2021-08-30] MEDS: CARVEDILOL 3.125 MG TABLET (COREG) PO SCH ×2 (09:00→21:41)
[2021-08-30] MEDS ORDERED: KCL 40 mEq in 100 mL (PREMIX) 100 ML IV ONE (10:00)
[2021-08-30] MEDS: CEFEPIME 2 GM in D5W 100 ML IV SCH ×2 (10:43→21:42)
[2021-08-30 10:52] LABS: ERYTHROCYTE SEDIMENTATION RATE 29 MM/HR (0-20)
[2021-08-30] MEDS: D5/0.45 NS 1,000 ML IV SCH ×2 (10:53→19:04)
[2021-08-30] MEDS ORDERED: POTASSIUM CHLORIDE 40 MEQ in NS 250 ML IV ONE (11:00)
--- NOTE | 2021-08-30 11:00 | NUR ---
PT K+ LEVEL 3.1 MD MADE AWARE WITH ORDERS. SURGICAL TEAM MADE AWARE ALSO
--- NOTE | 2021-08-30 15:00 | NUR ---
OR TEAM CALLED SURGERY CANCELLED PT MADE AWARE. RESUME DIET POSSIBLE SURGERY TOMORROW,
[2021-08-30] MEDS: FLUCONAZOLE 100 mg/ NS 50 ML IV SCH (19:04)
[2021-08-30] MEDS: VANCOMYCIN HCL 1,000 MG in NS 250 ML IV SCH (19:04)
[2021-08-30] MEDS: FUROSEMIDE 20 MG TABLET PO SCH (19:09)
--- NOTE | 2021-08-30 19:35 | NUR ---
Opening note Patient is awake, AOx3 resting on ESPINOZA matress, no distress. Nonlabored breathing on 2L NC. Skin is warm dry. IV antibiotic infusing via PICC to TATY. She has nunes catheter drainage bag to gravity, and flexiseal bag at bedside - no output noted. Bed is locked in lowest position, side rails up 3x, bed alarm on and call light w/in reach. Updated board.
[2021-08-30 20:00] VITALS: BP_SYST 108
--- NOTE | 2021-08-30 21:17 | NUR ---
NPO 08/31/21 8am, after breakfast Dr. Chavis called and said patient's surgical procedure is planned for tommorow 1730/1800, He said patient may have breakfast, but wants her NPO at 0800, TORB
--- NOTE | 2021-08-30 21:42 | NUR ---
Meds Scheduled meds given. Patient swallowed tablets w/water without difficulty. Reviewed side effects and she verbalized understanding. Rinsed her lower dentures and left them soaking in dental tray.
--- NOTE | 2021-08-30 21:57 | NUR ---
s/w Called and s/w Renato Peace, and informed Dr. Chavis is planning procedure tomorrow at 5:30 pm/ 6pm. He was concerned about delay, though was glad to hear of update.
[2021-08-30 23:42] VITALS: BP_SYST 114
--- NOTE | 2021-08-31 01:58 | NUR ---
rounds Resting quietly, no distress, IVF infusing well. Safety and isolation precautions in place
[2021-08-31] MEDS: D5/0.45 NS 1,000 ML IV SCH ×3 (04:04→21:51)
[2021-08-31] MEDS: ACETAMINOPHEN 325 MG TABLET PO PRN (05:07)
[2021-08-31 06:25] LABS: BASOPHILS % (AUTO) 0.4 % (0.0-2.0); EOSINOPHILS % (AUTO) 0.4 % (0.0-4.0); HEMATOCRIT 34.5 % (36-48); HEMOGLOBIN 11.1 g/dL (12.0-16.0); LYMPHOCYTES # (AUTO) 0.9 K/uL (1.0-5.5); LYMPHOCYTES % (AUTO) 12.4 % (20.5-51.5); MEAN CORPUSCULAR HEMOGLOBIN 26 pg (27-31); MEAN CORPUSCULAR HGB CONC 32 % (32-36); MEAN CORPUSCULAR VOLUME 82 fL (79.0-98.0); MONOCYTES # (AUTO) 0.5 K/uL (0.0-1.0); MONOCYTES % (AUTO) 7.4 % (1.7-9.3); NEUTROPHILS # (AUTO) 5.8 K/uL (1.8-7.7); NEUTROPHILS % (AUTO) 79.4 % (40.0-70.0); PLATELET COUNT (AUTO) 207 K/uL (130-430); RED BLOOD CELL COUNT(AUTO) 4.19 MIL/uL (4.2-6.2); RED CELL DISTRIBUTION WIDTH 17.4 % (9.0-15.0); WHITE BLOOD COUNT (AUTO) 7.3 K/uL (4.8-10.8)
[2021-08-31 07:05] LABS: ALANINE AMINOTRANSFERASE 10 U/L (12-78); ALBUMIN 2.1 g/dL (3.4-4.8); ANION GAP 3 (5-15); ASPARTATE AMINOTRANSFERASE 21 U/L (10-37); CALCIUM 7.6 mg/dL (8.4-11.0); CHLORIDE 103 mmol/L (98-107); CREATININE 0.64 mg/dL (0.55-1.30); GLUCOSE 97 mg/dL (70-99); PHOSPHORUS 2.2 mg/dL (2.7-4.5); POTASSIUM 3.4 mmol/L (3.5-5.1); SODIUM SERUM 138 mmol/L (136-145); TOTAL BILIRUBIN 0.5 mg/dL (0.0-1.0); UREA NITROGEN, BLOOD 8 mg/dL (8-21)
[2021-08-31 07:55] LABS: C-REACTIVE PROTEIN QUANT 2.6 mg/dL (0-0.5)
[2021-08-31 08:00] VITALS: BP_SYST 140
[2021-08-31] MEDS: FUROSEMIDE 40 MG TABLET PO SCH (08:14)
[2021-08-31] MEDS: CARVEDILOL 3.125 MG TABLET (COREG) PO SCH ×2 (08:15→21:51)
[2021-08-31] MEDS: CEFEPIME 2 GM in D5W 100 ML IV SCH ×2 (08:15→22:06)
[2021-08-31] MEDS: POTASSIUM CHLORIDE 20 MEQ TAB.PRT.SR PO SCH ×2 (08:15→21:50)
[2021-08-31] MEDS: BALSAM PERU/CASTOR OIL 56.7 GM OINT...G. TP SCH (08:16)
[2021-08-31 11:37] VITALS: BP_SYST 100
[2021-08-31 11:50] LABS: ERYTHROCYTE SEDIMENTATION RATE 23 MM/HR (0-20)
[2021-08-31 12:00] VITALS: BP_SYST 104
[2021-08-31 16:00] VITALS: BP_SYST 98
[2021-08-31] MEDS: VANCOMYCIN HCL 1,000 MG in NS 250 ML IV SCH (16:31)
[2021-08-31] MEDS: FLUCONAZOLE 100 mg/ NS 50 ML IV SCH (17:45)
[2021-08-31] MEDS ORDERED: fentaNYL CITRATE/PF 100 MCG/2 ML AMP IVP PRN ×2 (18:30)
[2021-08-31] MEDS ORDERED: METOCLOPRAMIDE HCL 10 MG/2 ML VIAL IVP PRN (18:30)
[2021-08-31] MEDS ORDERED: ONDANSETRON HCL 4 MG/2 ML VIAL IVP PRN (18:30)
[2021-08-31] MEDS ORDERED: BUPIVACAINE /PF 0.25% 30 ML VIAL INJ ONE (18:50)
[2021-08-31] MEDS ORDERED: NS IRRIG SOLN 1000 ML IR ONE (18:50)
[2021-08-31] MEDS ORDERED: PROPOFOL 200MG/ 20ML VIAL (DIPRIVAN) IV ONE (18:50)
[2021-08-31] MEDS ORDERED: D5/0.45 NS 1,000 ML IV.SOLN IV ONE (18:50)
[2021-08-31] MEDS ORDERED: LIDOCAINE/EPI 1% 1:100000 20 ML VIAL INJ ONE (18:50)
[2021-08-31 20:00] VITALS: BP_SYST 108
[2021-08-31] MEDS: FUROSEMIDE 20 MG TABLET PO SCH (21:50)
[2021-09-01 00:04] VITALS: BP_SYST 96
[2021-09-01 08:00] VITALS: BP_SYST 115
--- NOTE | 2021-09-01 08:00 | NUR ---
Opening Notes Patient is awake, alert and oriented x3, lethargic. No resp distress noted. Breathing is even and unlabored, RA. Pt denies any pain at this time. Pt is s/p decubitus ulcer I&D, dressing is C/D/I. PICC LINE on TATY, flushing well. blood return noted, C/D/I. D5 1/2 NS @ 100 ml/hr, infusing well. FC draining by gravity, yellow and clear urine. Flexiseal in place, loose stool. Pt is noted with generalized nonpitting edema. [place]. Contact isolation x HEADWAITRESS urine. All needs met at this time. Safety and fall precautions in place. Bed in lowest position, alarm on, locked. Will continue to monitor.
[2021-09-01] MEDS: FUROSEMIDE 40 MG TABLET PO SCH (08:34)
[2021-09-01] MEDS: POTASSIUM CHLORIDE 20 MEQ TAB.PRT.SR PO SCH ×2 (08:34→22:10)
[2021-09-01] MEDS: CARVEDILOL 3.125 MG TABLET (COREG) PO SCH ×2 (08:35→22:10)
[2021-09-01] MEDS: CEFEPIME 2 GM in D5W 100 ML IV SCH ×2 (08:36→22:11)
[2021-09-01] MEDS: BALSAM PERU/CASTOR OIL 56.7 GM OINT...G. TP SCH (08:37)
[2021-09-01] MEDS: D5/0.45 NS 1,000 ML IV SCH ×2 (09:45→22:17)
--- NOTE | 2021-09-01 10:00 | NUR ---
Nurse s/w daughter, Shanthi and updated her on patient status and plan of care.
[2021-09-01 10:42] LABS: BASOPHILS # (AUTO) 0.1 K/uL (0.0-0.2); EOSINOPHILS % (AUTO) 0.7 % (0.0-4.0); HEMATOCRIT 33.6 % (36-48); LYMPHOCYTES # (AUTO) 0.8 K/uL (1.0-5.5); LYMPHOCYTES % (AUTO) 15.6 % (20.5-51.5); MEAN CORPUSCULAR HEMOGLOBIN 27 pg (27-31); MEAN CORPUSCULAR HGB CONC 33 % (32-36); MEAN CORPUSCULAR VOLUME 82 fL (79.0-98.0); MONOCYTES # (AUTO) 0.5 K/uL (0.0-1.0); MONOCYTES % (AUTO) 8.7 % (1.7-9.3); PLATELET COUNT (AUTO) 174 K/uL (130-430); RED BLOOD CELL COUNT(AUTO) 4.12 MIL/uL (4.2-6.2); RED CELL DISTRIBUTION WIDTH 17.3 % (9.0-15.0); WHITE BLOOD COUNT (AUTO) 5.3 K/uL (4.8-10.8)
[2021-09-01 10:56] LABS: ANION GAP 3 (5-15); CALCIUM 7.7 mg/dL (8.4-11.0); CHLORIDE 102 mmol/L (98-107); CREATININE 0.62 mg/dL (0.55-1.30); GLUCOSE 112 mg/dL (70-99); POTASSIUM 3.7 mmol/L (3.5-5.1); SODIUM SERUM 140 mmol/L (136-145); UREA NITROGEN, BLOOD 8 mg/dL (8-21)
[2021-09-01 11:21] VITALS: BP_SYST 109
--- NOTE | 2021-09-01 12:00 | NUR ---
Notes Patient is awake, alert and oriented x4. No resp distress noted. Pt remains on 2 liters via NC, tolerating well. Denies any pain. Will continue to monitor.
--- NOTE | 2021-09-01 13:55 | NUR ---
Nurse s/w , Renato and updated him on patient status and plan of care. would like to s/w surgeon, Dr. Chavis. Will follow up.
--- NOTE | 2021-09-01 15:15 | NUR ---
Admitting Diagnosis Decubitus ulcer/UTI Reviewed Pertinent Medical/Surgical Hx Medical Record Medical History Comment: PMH: Afib, CHF, bed-bound after fall w/ injury to knee per physician notes Pt also found w/ gangrenous/infected R and L trochanteric decubitus wounds and weakness of the bilat proximal LE, d/t underlying comorbid medical condition per physician notes SARS-CoV-2 Ag (Rapid) Negative 08/26 Subjective Information (08/31) s/p debridement of stage IV pressure injuries, wounds noted to be positive for pseudomonas, strep B and citobacter. PUs in bilat buttocks) 08/27/21 1648. The pt is confused/disoriented, was sleeping soundly at time of visit; BLE w/ 3+ pitting edema; on 3 L O2 via NC; Prior to NPO for surgery on 08/31, PO intake was 75-100%, ~83% X6 meals on average (2 gm Na diet); +bowel sounds, abdomen soft/non-distended noted; LBM x3 08/28; Nitish: 9 -- Music Therapy Specialist note 08/28 revealed: 1. Left Buttock near Ischium: Unstageable pressure ulcer, present on admission. 2. Right Buttock near Ischium:Stage IV pressure ulcer, present on admission. 3. Left Heel: Chronic unstageable pressure ulcer, present on admission. 4. 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 PO intake likely meeting nutrition needs w/ intake ~83% on average. Current Diet Order/Nutrition Support NPO x2 days for surgery Patient/Significant Other Unable To Verbalize Education Provided Not Indicated Pertinent Medications D5%/NS at 100 ml/hr (408 kcal/day), Lasix, PRN Zofran Pertinent Labs Reviewed Height (Feet) 5 feet Height (Inches) 5.00 inches Weight (Pounds) 237 pounds Weight (Calculated Kilograms) 107.626534 kilograms Patient Weight 107.501 kg Body Mass Index 39.43 kg/m2 %IBW 190 [place]/Adjusted Body Weight 125#/56.8 kg. 153#/70 kg Recent Weight Change Unable to verify Weight Status Obese Food Allergies Unable to verify Estimated Energy Expenditure (kcals/day) 7162-9785 (30-35 kcal/kg IBW d/t obesity, wound healing, post-op) Estimated Protein Required (g/day) 85-114 (1.5-2 gm/kg IBW d/t obesity, wound healing, post-op) Estimated Fluid Required (l/day) 1.7-2 (30-35 ml/kg IBW d/t wound healing) Problem/Etiology/Signs/Symptoms Increased nutritional needs R/T metabolic demands AEB estimated nutritional requirements for wound healing and post-op. Expected Outcomes/Goals - Monitor advancement of diet, appetite, and PO intakes w/ goal of pt meeting >80% of estimated nutritional needs, labs trending WNL, normal GI function, and skin integrity/wt maintenance Dietitian Recommendations * Consider resuming 2 gm sodium diet, Ensure Enlive BID, Rajesh BID if/when medically appropriate *Consider multivitamin w/ minerals, vitamin C and 2 week course of zinc sulfate to promote healing Follow Up High Risk: F/U in 2-3days Follow Up By September 04, 2021
[2021-09-01] MEDS: ACETAMINOPHEN 325 MG TABLET PO PRN (15:22)
[2021-09-01] MEDS: VANCOMYCIN HCL 1,000 MG in NS 250 ML IV SCH (15:23)
[2021-09-01 15:46] VITALS: BP_SYST 117
--- NOTE | 2021-09-01 16:00 | NUR ---
Notes Patient is asleep at this time. No resp distress noted. Pt remains on 2 liters via NC, tolerating well. Pt reports somewhat relief of pain meds from earlier. Pt c/o pain upon repositioning in bed. Repositioned patient with pillows. FC and Flexiseal in place. Will continue to monitor.
[2021-09-01] MEDS: FLUCONAZOLE 100 mg/ NS 50 ML IV SCH (16:43)
[2021-09-01] MEDS: FUROSEMIDE 20 MG TABLET PO SCH (17:21)
[2021-09-01] MEDS: KETOROLAC TROMETHAMINE 15 MG VIAL IVP PRN (17:59)
--- NOTE | 2021-09-01 18:55 | NUR ---
Closing Notes Patient is awake, alert and oriented x2. Patient is confused, noted yelling and talking to self while in bed. No resp distress noted. Breathing is even and unlabored, pt remains on 2 ltiers via NC, tolerating well. S/p toradol IVP, pt reports some relief. 08/25, noted with discomfort. Pain upon repositioning. PICC line on TATY, double lumen, C/D/I, IV ATB infusing well. FC draining by gravity, flexiseal in place. Pt to resume clear liquid diet, tolerating well. Contact precautions. All needs met at this time. Safety and fall preacautions in place. Bed in lowest position, alarm on, locked. Will continue to monitor.
--- NOTE | 2021-09-01 19:40 | NUR ---
Opening note Patient is awake, AOx3 resting on ESPINOZA matress, no distress. Nonlabored breathing on 2L NC. Skin is warm dry. IV antibiotic infusing via PICC to TATY. She has nunes catheter drainage bag to gravity, and flexiseal bag at bedside. Bed is locked in lowest position, side rails up 3x, bed alarm on and call light w/in reach.
[2021-09-01 20:00] VITALS: BP_SYST 108
--- NOTE | 2021-09-01 22:10 | NUR ---
Meds scheduled meds given; she swallowed tabs whole with water
[2021-09-01 23:56] VITALS: BP_SYST 148
[2021-09-02 00:03] VITALS: BP_SYST 108
[2021-09-02] MEDS: KETOROLAC TROMETHAMINE 15 MG VIAL IVP PRN ×2 (00:05→06:45)
--- NOTE | 2021-09-02 00:05 | NUR ---
Toradol Patient awake and periodically moans, she denies pain. I explained -reminded she had surgery and pain med will help, she agreed and Toradol given as ordered. nicolette
--- NOTE | 2021-09-02 02:00 | NUR ---
resting eyes closed patient resting in bed, eyes closed, no distress, not moaning.
[2021-09-02] MEDS: ACETAMINOPHEN 325 MG TABLET PO PRN ×2 (03:20→20:55)
--- NOTE | 2021-09-02 03:20 | NUR ---
Tylenol Patient resting in bed and occasional moans "oh-oh", initially she denied pain and then did request Tylenol. It was administered, wctm
[2021-09-02 06:20] LABS: BASOPHILS % (AUTO) 0.5 % (0.0-2.0); EOSINOPHILS % (AUTO) 0.5 % (0.0-4.0); HEMATOCRIT 32.4 % (36-48); HEMOGLOBIN 10.7 g/dL (12.0-16.0); LYMPHOCYTES # (AUTO) 0.7 K/uL (1.0-5.5); LYMPHOCYTES % (AUTO) 14.6 % (20.5-51.5); MEAN CORPUSCULAR HEMOGLOBIN 27 pg (27-31); MEAN CORPUSCULAR HGB CONC 33 % (32-36); MEAN CORPUSCULAR VOLUME 81 fL (79.0-98.0); MONOCYTES # (AUTO) 0.5 K/uL (0.0-1.0); MONOCYTES % (AUTO) 9.7 % (1.7-9.3); NEUTROPHILS # (AUTO) 3.5 K/uL (1.8-7.7); NEUTROPHILS % (AUTO) 74.7 % (40.0-70.0); PLATELET COUNT (AUTO) 163 K/uL (130-430); RED BLOOD CELL COUNT(AUTO) 3.98 MIL/uL (4.2-6.2); RED CELL DISTRIBUTION WIDTH 17.1 % (9.0-15.0); WHITE BLOOD COUNT (AUTO) 4.7 K/uL (4.8-10.8)
[2021-09-02] MEDS: D5/0.45 NS 1,000 ML IV SCH ×3 (06:44→20:54)
[2021-09-02 06:53] LABS: ANION GAP 6 (5-15); CALCIUM 7.6 mg/dL (8.4-11.0); CHLORIDE 98 mmol/L (98-107); CREATININE 0.65 mg/dL (0.55-1.30); GLUCOSE 96 mg/dL (70-99); SODIUM SERUM 137 mmol/L (136-145); UREA NITROGEN, BLOOD 8 mg/dL (8-21)
--- NOTE | 2021-09-02 07:00 | NUR ---
BETH MONTES DE OCA AT [phone] SPOKE WITH GARRY.
--- NOTE | 2021-09-02 07:05 | NUR ---
Dr Chavis - clear to discharge , dressing change Dr Chavis said dressing changes to be done / continued by nursing staff and clear to discharge from his standpoint of care.
[2021-09-02 08:00] VITALS: BP_SYST 149
[2021-09-02] MEDS: POTASSIUM CHLORIDE 20 MEQ TAB.PRT.SR PO SCH ×2 (09:00→20:54)
[2021-09-02] MEDS ORDERED: POTASSIUM CHLORIDE 20 MEQ TAB.PRT.SR PO ONE (09:15)
[2021-09-02] MEDS ORDERED: CEFE2FRO IV (09:21)
[2021-09-02] MEDS ORDERED: VANC1PLA9 IV (09:21)
[2021-09-02] MEDS: BALSAM PERU/CASTOR OIL 56.7 GM OINT...G. TP SCH (09:29)
[2021-09-02] MEDS: CEFEPIME 2 GM in D5W 100 ML IV SCH ×2 (09:30→20:53)
[2021-09-02] MEDS: FUROSEMIDE 40 MG TABLET PO SCH (09:36)
[2021-09-02] MEDS: CARVEDILOL 3.125 MG TABLET (COREG) PO SCH ×2 (09:36→20:54)
[2021-09-02 11:26] VITALS: BP_SYST 115
[2021-09-02 15:33] VITALS: BP_SYST 118
[2021-09-02] MEDS: VANCOMYCIN HCL 1,000 MG in NS 250 ML IV SCH (16:37)
--- NOTE | 2021-09-02 18:15 | NUR ---
CLOSING NOTE: PATIENT IS RESTING IN BED, AAO x2-3, FORGETFUL AT TIMES. PATIENT DENIES PAIN/DISCOMFORT. NO SIGNIFICANT CHANGES NOTED THROUGHOUT SHIFT. WOUND CARE COMPLETED, PHOTO DOCUMENTATION PLACED IN CHART. SPOKE WITH DAUGHTER SAGAR, UPDATE PROVIDED. FLEXISEAL IN PLACE AND PATENT, MONTOYA CATH DRAINING CLEAR YELLOW URINE VIA GRAVITY. MONTOYA CATH CARE PROVIDED. ALL NEEDS MET. BED IN LOWEST POSITION, CALL LIGHT IN REACH, SAFETY MEASURES IN PLACE. WILL CONT TO MONITOR AND ENDORSE TO PM NURSE.
[2021-09-02] MEDS: FLUCONAZOLE 100 mg/ NS 50 ML IV SCH (18:44)
[2021-09-02] MEDS: FUROSEMIDE 20 MG TABLET PO SCH (18:47)
--- NOTE | 2021-09-02 19:25 | NUR ---
Opening note Patient is resting in bed, eyes open, AOx1 resting on ESPINOZA matress, no distress. She does not state her name, yet if asked if her name is Pam she replies yes. Nonlabored breathing on 2L NC. Skin is warm dry. IVF infusing via PICC to TATY. She has nunes catheter drainage bag to gravity, and flexiseal bag at bedside. Bed is locked in lowest position, side rails up 3x, bed alarm on and call light w/in reach.
--- NOTE | 2021-09-02 19:25 | NUR ---
REPORT GIVEN TO PM NURSE FOR CONTINUITY OF CARE.
[2021-09-02 20:00] VITALS: BP_SYST 119
--- NOTE | 2021-09-02 20:55 | NUR ---
meds scheduled meds given. Patient swallowed tablets with a drink of water, w/out difficulty.
--- NOTE | 2021-09-03 00:10 | NUR ---
wound care, pictures Patient provided with wound care and dressing change as ordered. Pictures (for weekly record) taken.
[2021-09-03 00:46] VITALS: BP_SYST 100
[2021-09-03] MEDS: KETOROLAC TROMETHAMINE 15 MG VIAL IVP PRN (00:57)
--- NOTE | 2021-09-03 00:57 | NUR ---
Toradol When asked patient denies pain, yet she is repeating very loud "oh, oh", and appears restless. Toradol given for pain as ordered, nicolette
--- NOTE | 2021-09-03 01:37 | NUR ---
RN APPROACHED AND WANTED ME TO ASSESS PT, STATING THAT SHE HEARD WHEEZING AND SATURATION WAS <95. STUDENT ZIYAD AND I ASSESSED PT AND SHE IS SATURATING 97% WITH VERY MINIMAL WHEEZING. POSSIBLE FORCED EXPIRATORY WHEEZES. WILL ASSESS PT LATER.
--- NOTE | 2021-09-03 03:11 | NUR ---
resting quietly presently resting quietly, no distress, not moaning nor yelling, wctm
--- NOTE | 2021-09-03 03:25 | NUR ---
Dr. Branch Informed patient is on clear liquid and she advanced her to regular soft diet. Also informed patient is AO X1 less alert than prior days. She is responsive, stable. She said call Dr. Mcdaniels in am to follow-up.
[2021-09-03 06:46] LABS: ANION GAP 6 (5-15); CALCIUM 7.7 mg/dL (8.4-11.0); CHLORIDE 99 mmol/L (98-107); CREATININE 0.72 mg/dL (0.55-1.30); GLUCOSE 94 mg/dL (70-99); POTASSIUM 3.4 mmol/L (3.5-5.1); SODIUM SERUM 136 mmol/L (136-145); UREA NITROGEN, BLOOD 10 mg/dL (8-21)
--- NOTE | 2021-09-03 06:59 | NUR ---
closing note Patient is awake, AOx1, states her name. resting on ESPINOZA matress, no distress and is smiling. Nonlabored breathing on 2L NC. Skin is warm dry. IVF infusing via PICC to TATY. She has nunes catheter drainage bag to gravity, and flexiseal bag at bedside. Safety and isolation precautions maintained, will endorse care.
[2021-09-03] MEDS: CEFEPIME 2 GM in D5W 100 ML IV SCH ×2 (09:08→22:24)
[2021-09-03] MEDS: CARVEDILOL 3.125 MG TABLET (COREG) PO SCH ×2 (09:09→22:23)
[2021-09-03] MEDS: FUROSEMIDE 40 MG TABLET PO SCH (09:09)
[2021-09-03] MEDS: BALSAM PERU/CASTOR OIL 56.7 GM OINT...G. TP SCH (09:10)
[2021-09-03] MEDS: POTASSIUM CHLORIDE 20 MEQ TAB.PRT.SR PO SCH ×2 (09:11→22:23)
[2021-09-03 11:32] VITALS: BP_SYST 108
[2021-09-03 12:02] LABS: BASOPHILS % (AUTO) 0.3 % (0.0-2.0); EOSINOPHILS % (AUTO) 0.3 % (0.0-4.0); HEMATOCRIT 34.2 % (36-48); HEMOGLOBIN 11.1 g/dL (12.0-16.0); LYMPHOCYTES # (AUTO) 1.3 K/uL (1.0-5.5); LYMPHOCYTES % (AUTO) 23.8 % (20.5-51.5); MEAN CORPUSCULAR HEMOGLOBIN 27 pg (27-31); MEAN CORPUSCULAR HGB CONC 32 % (32-36); MEAN CORPUSCULAR VOLUME 82 fL (79.0-98.0); MONOCYTES # (AUTO) 0.6 K/uL (0.0-1.0); MONOCYTES % (AUTO) 11.4 % (1.7-9.3); NEUTROPHILS # (AUTO) 3.6 K/uL (1.8-7.7); NEUTROPHILS % (AUTO) 64.2 % (40.0-70.0); PLATELET COUNT (AUTO) 161 K/uL (130-430); RED BLOOD CELL COUNT(AUTO) 4.17 MIL/uL (4.2-6.2); RED CELL DISTRIBUTION WIDTH 17.5 % (9.0-15.0); WHITE BLOOD COUNT (AUTO) 5.5 K/uL (4.8-10.8)
--- NOTE | 2021-09-03 12:34 | NUR ---
Business Professor DIRECTOR AUTOMOTIVE Deborah spoke with HCP/[employer] Test Engine Evaluator Georgiana regarding a threat made to Scan Test Engine Evaluator Junie by patient's step-daughter Shanthi, that may pose a security threat to facility. OJ Cabrera immediately consulted with Instrumental Music Teacher Manager Marilynn , Admin team, Security and patient's RN Alex to address concern. Transfer Driver's arrived while team was discussing plan at nurses station (unknown who contacted LE) and were observed speaking to patient's step-daughter Shanthi. Due to additional safety concerns regarding 's behavior disclosed by JOSELIN Stoner, DIRECTOR AUTOMOTIVE also contacted APS Sdc Teacher Anita Perez . A voicemail requesting immediate call back was left. DIRECTOR AUTOMOTIVE will continue to be available as needed Addendum: 09/08/21 at 1420 by Deborah Moreno DIRECTOR AUTOMOTIVE LATE ENTRY for 09/03/2021 DIRECTOR AUTOMOTIVE contacted APS Sdc Teacher Anita Perez case #[id number] to address current issue and provide updated information related to safety. As advised by Anita, due to this being a separate issue from the original report completed by the ED on 08/26/2021, this DIRECTOR AUTOMOTIVE completed an online APS report #[id number] DIRECTOR AUTOMOTIVE will continue to be available as needed
[2021-09-03 15:31] VITALS: BP_SYST 120
[2021-09-03] MEDS: VANCOMYCIN HCL 1,000 MG in NS 250 ML IV SCH (15:44)
[2021-09-03] MEDS: D5/0.45 NS 1,000 ML IV SCH (15:47)
[2021-09-03] MEDS ORDERED: MEMANTINE HCL 5 MG TABLET PO ONE (16:00)
[2021-09-03] MEDS: FUROSEMIDE 20 MG TABLET PO SCH (18:21)
[2021-09-03] MEDS: FLUCONAZOLE 100 mg/ NS 50 ML IV SCH (18:23)
--- NOTE | 2021-09-03 19:39 | NUR ---
0800: PATIENT IS AWAKE, RESPONSE TO STIMULI WHEN CALLED BY NAME. RESPIRATION EVEN AND UNLABORED WITH SHORTNESS OF BREATH ON EXERTION. MORBIDLY OBESE, SKIN WARM AND DRY WITH BILATERAL BUTTOCK THAT WAS DEBRIDE BY DR. MORALES WITH ORDER FOR DAILY CHANGE Q DAILY AND PRN. MOVE UPPER EXTREMITIES, EXTREME WEAKNESS IN THE LOWER EXTREMITIES. WILL CONTINUE TO MONITOR PATIENT. 1200: PATIENT DAUGHTER IN THE FACILITY, WAS INFORMED BY PLANT TAXONOMY TEACHER OF EVENT THAT HAPPENED YESTERDAY, YARN COMBER, NURSING ADM. WAS CALLED AND PRESENT IN CONFERENCE. DAUGHTER EXPRESS CONCERN OF ALOC. DR. ALEXANDER WAS NOTIFIED WITH ORDER FOR CT OF THE HEAD STAT, NOTED AND CARRIED OUT ORDERED. 1900: CHECKED WITH PATIENT CHOICE OF RX RESTARTED PATIENT ON NAMENDA AND ZOLOFT OK PER MDS.CT OF THE HEAD RESULT WAS NEGATIVE. ENDORSED PATIENT TO PM SHIFT NURSE.
[2021-09-03 20:01] VITALS: BP_SYST 149
[2021-09-03] MEDS ORDERED: SERTRALINE HCL 50 MG TABLET PO SCH (21:00)
[2021-09-04 00:29] VITALS: BP_SYST 124
[2021-09-04] MEDS ORDERED: MEMANTINE HCL 5 MG TABLET PO SCH (04:00)
[2021-09-04 07:40] VITALS: BP_SYST 113
--- NOTE | 2021-09-04 07:50 | NUR ---
Opening Notes Patient is laying in bed awake. A/O x1. No apparent distress noted. Call light within reach. Vitals as charted. Safety and fall precautions in place. All needs met.
[2021-09-04 08:24] LABS: BASOPHILS % (AUTO) 0.4 % (0.0-2.0); EOSINOPHILS % (AUTO) 0.1 % (0.0-4.0); HEMOGLOBIN 10.8 g/dL (12.0-16.0); LYMPHOCYTES # (AUTO) 1.4 K/uL (1.0-5.5); LYMPHOCYTES % (AUTO) 17.3 % (20.5-51.5); MEAN CORPUSCULAR HEMOGLOBIN 27 pg (27-31); MEAN CORPUSCULAR HGB CONC 33 % (32-36); MEAN CORPUSCULAR VOLUME 81 fL (79.0-98.0); MONOCYTES # (AUTO) 0.7 K/uL (0.0-1.0); MONOCYTES % (AUTO) 8.2 % (1.7-9.3); PLATELET COUNT (AUTO) 158 K/uL (130-430); RED BLOOD CELL COUNT(AUTO) 4.07 MIL/uL (4.2-6.2); RED CELL DISTRIBUTION WIDTH 17.4 % (9.0-15.0); WHITE BLOOD COUNT (AUTO) 8.2 K/uL (4.8-10.8)
[2021-09-04 08:58] LABS: ANION GAP 9 (5-15); CALCIUM 7.9 mg/dL (8.4-11.0); CHLORIDE 98 mmol/L (98-107); CREATININE 0.72 mg/dL (0.55-1.30); GLUCOSE 118 mg/dL (70-99); POTASSIUM 3.4 mmol/L (3.5-5.1); SODIUM SERUM 136 mmol/L (136-145); UREA NITROGEN, BLOOD 11 mg/dL (8-21)
--- NOTE | 2021-09-04 10:05 | NUR ---
Spoke with Dr. Branch Spoke with Dr. Branch regarding the phone call I received from Kristina at [employer]. Explained Renato Peace, patient's would like a call from her regarding her dx of dementia, respiratory infection and CHF.
[2021-09-04] MEDS: CARVEDILOL 3.125 MG TABLET (COREG) PO SCH ×2 (10:30→20:09)
[2021-09-04] MEDS: FUROSEMIDE 40 MG TABLET PO SCH (10:31)
[2021-09-04] MEDS: POTASSIUM CHLORIDE 20 MEQ TAB.PRT.SR PO SCH ×2 (10:31→20:08)
[2021-09-04] MEDS: CEFEPIME 2 GM in D5W 100 ML IV SCH ×2 (10:32→20:06)
[2021-09-04] MEDS: BALSAM PERU/CASTOR OIL 56.7 GM OINT...G. TP SCH (10:40)
[2021-09-04 11:26] VITALS: BP_SYST 110
[2021-09-04] MEDS: ACETAMINOPHEN 500 MG TABLET PO PRN (11:51)
--- NOTE | 2021-09-04 11:51 | NUR ---
Note Patient moaning loudly. FLACC scale as charted. Gave pain medication as charted.
--- NOTE | 2021-09-04 13:42 | NUR ---
Received a phone call from Parul at [facility] case # [id number] phone # [phone]. She is with the patient quality unit and she stated the patient's called with concerns about communication with the patient's MD. I spoke to Dr Branch and let her know about the communication I had w/ Autumn. She stated she would f/u with the patient's .
[2021-09-04 15:36] VITALS: BP_SYST 130
[2021-09-04] MEDS ORDERED: HEPARIN 25,000 UNITS/D5W 250ML 250 ML IV PRN (15:45)
--- NOTE | 2021-09-04 16:00 | NUR ---
Note Called Shanthi Peace, patient's daughter to follow up with questions she had regarding her mother's medication. Unable to reach and unable to leave a message due to voice mail box being full.
[2021-09-04] MEDS: VANCOMYCIN HCL 1,000 MG in NS 250 ML IV SCH (16:08)
--- NOTE | 2021-09-04 17:18 | NUR ---
Nutrition F/U Admitting Diagnosis Decubitus ulcer/UTI Reviewed Pertinent Medical/Surgical Hx Medical Record Medical History Comment: PMH: Afib, CHF, bed-bound after fall w/ injury to knee per physician notes Pt also found w/ gangrenous/infected R and L trochanteric decubitus wounds and weakness of the bilat proximal LE, d/t underlying comorbid medical condition per physician notes 08/31 Sx debridement of R/L trochanteric decubitus wound w/ gangrene infection SARS-CoV-2 Ag (Rapid) Negative 08/26 Subjective Information: RD bedside visit deferred d/t high workload. Per EMR review, pt is AO x1; plan for wound care per surgeon; possible D/C to SNF; PO intake average of 34% x7 meal records since 09/01; LBM x1 09/04; Nitish scale: 12 -- Lithopone Charger note 08/28 revealed: 1. Left Buttock near Ischium: Unstageable pressure ulcer, present on admission. 2. Right Buttock near Ischium:Stage IV pressure ulcer, present on admission. 3. Left Heel: Chronic unstageable pressure ulcer, present on admission. 4. 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 Pt is not meeting nutritional needs. Current Diet Order/Nutrition Support: Regular, soft x1 day Patient/Significant Other Unable To Verbalize Education Provided Not Indicated Pertinent Medications: k-dur, lasix, vancomycin Pertinent Labs: Reviewed Height (Feet) 5 feet Height (Inches) 5.00 inches Weight (Pounds) 237 pounds -- stable since 09/01 Patient Weight 107.501 kg Body Mass Index 39.43 kg/m2 %IBW 190 [place]/Adjusted Body Weight 125#/56.8 kg. 153#/70 kg Recent Weight Change Unable to verify Weight Status Obese Food Allergies Unable to verify Estimated Energy Expenditure (kcals/day) 6600-3737 (30-35 kcal/kg IBW d/t obesity, wound healing, post-op) Estimated Protein Required (g/day) 85-114 (1.5-2 gm/kg IBW d/t obesity, wound healing, post-op) Estimated Fluid Required (l/day) 1.7-2 (30-35 ml/kg IBW d/t wound healing) Problem/Etiology/Signs/Symptoms Increased nutritional needs R/T metabolic demands AEB estimated nutritional requirements for wound healing and post-op. *Ongoing Expected Outcomes/Goals - Monitor advancement of diet, appetite, and PO intakes w/ goal of pt meeting >80% of estimated nutritional needs, labs trending WNL, normal GI function, and skin integrity/wt maintenance Dietitian Recommendations * Cardiac diet, Ensure Enlive TID, Rajesh BID (supplements yield 1230 kcal/day, 65 gm protein/day) * Consider MVI w/ minerals, VIT C, and 2-week course of zinc sulfate for wound healing Follow Up High Risk: F/U in 2-3 days
--- NOTE | 2021-09-04 17:23 | NUR ---
Dietitian Recommendations * Cardiac diet, Ensure Enlive TID, Rajesh BID (supplements yield 1230 kcal/day, 65 gm protein/day) * Consider MVI w/ minerals, VIT C, and 2-week course of zinc sulfate for wound healing LP, RD Please refer to Nutrition F/U for details.
[2021-09-04] MEDS: FUROSEMIDE 20 MG TABLET PO SCH (17:52)
[2021-09-04] MEDS: FLUCONAZOLE 100 mg/ NS 50 ML IV SCH (17:52)
--- NOTE | 2021-09-04 18:50 | NUR ---
Closing Note Patient laying in bed with eyes closed. No apparent distress noted. patient appears calm and relaxed. Call light within reach. Safety and fall precautions in place. Will endorse care to maintenance supervisor 2nd shift RN.
[2021-09-04 20:00] VITALS: BP_SYST 145
--- NOTE | 2021-09-04 23:19 | NUR ---
Patient in bed. Turned repositioned q2. Patient continues to yell out. Alert oriented to self only. No acute distress noted. Will continue to monitor.
[2021-09-05] VITALS (7 sets, daily range): BP systolic 111–136
--- NOTE | 2021-09-05 04:37 | NUR ---
PATIENT SLEPT ONE HOUR THE WHOLE NIGHT. CONTINUES TO YELL OUT. TURNED REPOSITION Q2. DRESSINGS CHANGED TO THE PATIENT'S BOTTOM. WILL CONTINUE TO MONITOR.
--- NOTE | 2021-09-05 07:15 | NUR ---
OPENING NOTE Patient in bed resting, AxO x1, oriented only to self. No sign of distress and patient denies pain at this time. Oxygen saturation 96% on 2L NC. IV site is clean, dry, intact and patent. Landrum catheter in place and draining yellow urine. Flexiseal in place draining loose brown stool to gravity. All needs met at this time and safety checks made. Will continue to monitor.
[2021-09-05 07:42] LABS: BASOPHILS % (AUTO) 0.2 % (0.0-2.0); EOSINOPHILS % (AUTO) 0.2 % (0.0-4.0); HEMOGLOBIN 12.1 g/dL (12.0-16.0); LYMPHOCYTES # (AUTO) 1.1 K/uL (1.0-5.5); LYMPHOCYTES % (AUTO) 16.3 % (20.5-51.5); MEAN CORPUSCULAR HEMOGLOBIN 27 pg (27-31); MEAN CORPUSCULAR HGB CONC 33 % (32-36); MEAN CORPUSCULAR VOLUME 81 fL (79.0-98.0); MONOCYTES # (AUTO) 0.5 K/uL (0.0-1.0); MONOCYTES % (AUTO) 8.3 % (1.7-9.3); NEUTROPHILS # (AUTO) 4.8 K/uL (1.8-7.7); PLATELET COUNT (AUTO) 146 K/uL (130-430); RED BLOOD CELL COUNT(AUTO) 4.55 MIL/uL (4.2-6.2); RED CELL DISTRIBUTION WIDTH 17.7 % (9.0-15.0); WHITE BLOOD COUNT (AUTO) 6.5 K/uL (4.8-10.8)
[2021-09-05 08:04] LABS: ALANINE AMINOTRANSFERASE 5 U/L (12-78); ALBUMIN 1.9 g/dL (3.4-4.8); ANION GAP 5 (5-15); ASPARTATE AMINOTRANSFERASE 25 U/L (10-37); BILIRUBIN,DIRECT 0.4 mg/dL (0.0-0.3); CALCIUM 8.1 mg/dL (8.4-11.0); CHLORIDE 101 mmol/L (98-107); CREATININE 0.69 mg/dL (0.55-1.30); GLUCOSE 95 mg/dL (70-99); SODIUM SERUM 140 mmol/L (136-145); TOTAL BILIRUBIN 0.2 mg/dL (0.0-1.0); UREA NITROGEN, BLOOD 14 mg/dL (8-21)
[2021-09-05] MEDS: CARVEDILOL 3.125 MG TABLET (COREG) PO SCH ×2 (09:43→21:55)
[2021-09-05] MEDS: POTASSIUM CHLORIDE 20 MEQ TAB.PRT.SR PO SCH ×2 (09:45→21:52)
[2021-09-05] MEDS: FUROSEMIDE 40 MG TABLET PO SCH (09:45)
[2021-09-05] MEDS: CEFEPIME 2 GM in D5W 100 ML IV SCH ×2 (10:18→21:30)
[2021-09-05] MEDS ORDERED: ASPIRIN 81 MG TAB.CHEW PO ONE (10:45)
[2021-09-05] MEDS: BALSAM PERU/CASTOR OIL 56.7 GM OINT...G. TP SCH (11:09)
[2021-09-05] MEDS: ACETAMINOPHEN 500 MG TABLET PO PRN ×2 (11:10→16:44)
--- NOTE | 2021-09-05 11:14 | NUR ---
WOUND CARE Wound care provided, patient cleaned and adjusted in bed. Pain medication given. All needs met at this time, will continue to monitor.
--- NOTE | 2021-09-05 12:09 | NUR ---
SPOKE TO DAUGHTER Spoke to the patient's daughter on the phone and provided an update. Answered all questions.
[2021-09-05] MEDS: VANCOMYCIN HCL 1,000 MG in NS 250 ML IV SCH (17:21)
[2021-09-05] MEDS: FLUCONAZOLE 100 mg/ NS 50 ML IV SCH (17:22)
[2021-09-05] MEDS: FUROSEMIDE 20 MG TABLET PO SCH (18:44)
--- NOTE | 2021-09-05 19:51 | NUR ---
CLOSING NOTE Patient resting in bed, alert and oriented only to self. No sign of distress and patient denies pain. Patient has been repositioned q2h to offload weight of wounds. Flexiseal and nunes in place, draining to gravity. IV is intact and patent. All needs met at this time and family updated on the plan of care. Safety checks made. Endorsed to night filler nurse.
[2021-09-06 01:07] VITALS: BP_SYST 125
[2021-09-06 07:03] LABS: BASOPHILS % (AUTO) 0.4 % (0.0-2.0); EOSINOPHILS % (AUTO) 0.4 % (0.0-4.0); HEMATOCRIT 35.2 % (36-48); HEMOGLOBIN 11.3 g/dL (12.0-16.0); LYMPHOCYTES # (AUTO) 1.3 K/uL (1.0-5.5); LYMPHOCYTES % (AUTO) 20.4 % (20.5-51.5); MEAN CORPUSCULAR HEMOGLOBIN 26 pg (27-31); MEAN CORPUSCULAR HGB CONC 32 % (32-36); MEAN CORPUSCULAR VOLUME 82 fL (79.0-98.0); MONOCYTES # (AUTO) 0.5 K/uL (0.0-1.0); MONOCYTES % (AUTO) 7.3 % (1.7-9.3); NEUTROPHILS # (AUTO) 4.6 K/uL (1.8-7.7); NEUTROPHILS % (AUTO) 71.5 % (40.0-70.0); PLATELET COUNT (AUTO) 186 K/uL (130-430); RED BLOOD CELL COUNT(AUTO) 4.32 MIL/uL (4.2-6.2); RED CELL DISTRIBUTION WIDTH 17.3 % (9.0-15.0); WHITE BLOOD COUNT (AUTO) 6.4 K/uL (4.8-10.8)
[2021-09-06 07:35] LABS: ANION GAP 6 (5-15); CALCIUM 7.8 mg/dL (8.4-11.0); CHLORIDE 102 mmol/L (98-107); CREATININE 0.76 mg/dL (0.55-1.30); GLUCOSE 81 mg/dL (70-99); SODIUM SERUM 140 mmol/L (136-145); UREA NITROGEN, BLOOD 13 mg/dL (8-21)
[2021-09-06 07:57] LABS: POTASSIUM 2.9 mmol/L (3.5-5.1)
[2021-09-06 08:00] VITALS: BP_SYST 117
[2021-09-06] MEDS: CEFEPIME 2 GM in D5W 100 ML IV SCH ×2 (08:32→21:33)
--- NOTE | 2021-09-06 08:53 | NUR ---
OPENING NOTE Patient in bed resting, oriented only to self. Patient able to make short statements with clear speech. Patient denies pain at this time and no sign of distress. IV is clean, dry, intact and patent. Patient supported with pillows to offload weight. Nasal cannula in place on 2L, patients oxygenation 95%. Patient has a wet non productive cough. Flexiseal in place draining loose dark brown stool. Landrum catheter in place draining pink urine with a few blood clots. All needs met at this time and safety checks made. Will continue to monitor.
[2021-09-06] MEDS: ASPIRIN 81 MG TAB.CHEW PO SCH (08:59)
[2021-09-06] MEDS: POTASSIUM CHLORIDE 20 MEQ TAB.PRT.SR PO SCH ×2 (08:59→21:32)
[2021-09-06] MEDS: BALSAM PERU/CASTOR OIL 56.7 GM OINT...G. TP SCH (09:00)
[2021-09-06] MEDS: FUROSEMIDE 40 MG TABLET PO SCH (09:00)
[2021-09-06] MEDS: CARVEDILOL 3.125 MG TABLET (COREG) PO SCH ×2 (09:00→21:33)
--- NOTE | 2021-09-06 09:00 | NUR ---
CRITICAL LAB Patient's potassium 2.9. Informed Dr Casillas in person, stated he would enter in additional orders.
--- NOTE | 2021-09-06 09:10 | NUR ---
AT BEDSIDE Dr Stark at bedside to see the patient. Informed him of the patient's new onset of blood in urine. MD stated he would put in additional orders.
[2021-09-06] MEDS ORDERED: POTASSIUM CHLORIDE 20 MEQ TAB.PRT.SR PO ONE (10:00)
[2021-09-06 11:22] VITALS: BP_SYST 103
[2021-09-06] MEDS: ACETAMINOPHEN 500 MG TABLET PO PRN (11:50)
[2021-09-06 15:33] VITALS: BP_SYST 100
[2021-09-06] MEDS: VANCOMYCIN HCL 1,000 MG in NS 250 ML IV SCH (16:08)
[2021-09-06] MEDS: FLUCONAZOLE 100 mg/ NS 50 ML IV SCH (18:08)
[2021-09-06] MEDS: FUROSEMIDE 20 MG TABLET PO SCH (18:14)
[2021-09-06 18:15] VITALS: BP_SYST 140
--- NOTE | 2021-09-06 19:25 | NUR ---
CLOSING NOTE Patient in bed resting, alert and oriented to self. No sign of distress, patient denies pain at this time. Comfort measures provided. Patient has been turned q2h throughout shift to offload weight, heels are floating. PICC line is clean, dry, and intact. Landrum catheter in place draining pink urine with some small blood clots. Flexiseal in place draining loose dark brown stool. All needs met at this time and safety checks made. Family has been updated on the patient's plan of care. Endorsed to film processing shift supervisor nurse and answered all questions.
[2021-09-06 20:00] VITALS: BP_SYST 135
[2021-09-07] VITALS (8 sets, daily range): BP systolic 118–149
[2021-09-07 02:31] LABS: BILIRUBIN,URINE NEGATIVE (NEGATIVE); BLOOD, URINE 3+ (NEGATIVE); CLARITY/URINE CLEAR (CLEAR); COLOR,URINE YELLOW (YELLOW); GLUCOSE,URINE NEGATIVE (NEGATIVE); KETONES,URINE NEGATIVE (NEGATIVE); LEUKOCYTE ESTERASE ,URINE TRACE (NEGATIVE); NITRITE, URINE NEGATIVE (NEGATIVE); PROTEIN URINE 2+ (NEGATIVE); UROBILINOGEN,URINE 0.2 (0.2-1.0)
[2021-09-07 03:38] LABS: BACTERIA,URINE FEW /HPF (None Seen); WBC,URINE 20-50 /HPF (0-3)
[2021-09-07 03:39] LABS: MUCUS,URINE 1+ /LPF (None Seen)
--- NOTE | 2021-09-07 07:42 | NUR ---
PHYSICAL THERAPY CO-SIGN The Physical Therapy Progress Notes documented by Box Office Manager have been reviewed. Reviewed/Co-Signed by: Eladio Dasilva Documentation Done by: EKTA SHOOK PTA Addendum: 09/07/21 at 0743 by Eladio Dasilva PT Amended: Links added.
--- NOTE | 2021-09-07 08:00 | NUR ---
RECEIVED PATIENT FROM PM NURSE, RESTING IN BED, NO S/X OF PAIN OR DISCOMFORT OBSERVED AT THIS TIME, WILL ASSUME ALL CARE OF PATIENT
[2021-09-07] MEDS: POTASSIUM CHLORIDE 20 MEQ TAB.PRT.SR PO SCH ×2 (09:32→21:27)
[2021-09-07] MEDS: CEFEPIME 2 GM in D5W 100 ML IV SCH ×2 (09:32→21:25)
[2021-09-07] MEDS: FUROSEMIDE 40 MG TABLET PO SCH (09:51)
[2021-09-07] MEDS: ASPIRIN 81 MG TAB.CHEW PO SCH (09:52)
[2021-09-07] MEDS: CARVEDILOL 3.125 MG TABLET (COREG) PO SCH ×2 (09:52→21:27)
[2021-09-07] MEDS: BALSAM PERU/CASTOR OIL 56.7 GM OINT...G. TP SCH (09:52)
--- NOTE | 2021-09-07 11:00 | NUR ---
WOUND CARE PROVIDED TO PATIENT
--- NOTE | 2021-09-07 13:23 | NUR ---
Dietitian Recommendations * Cardiac diet, Ensure Enlive TID, Rajesh BID (supplements yield 1230 kcal/day, 65 gm protein/day) * Consider MVI w/ minerals, VIT C, and 2-week course of zinc sulfate for wound healing * Consider appetite stimulant * Encourage PO intake Please refer to Nutrition F/U for details.
--- NOTE | 2021-09-07 13:23 | NUR ---
Nutrition F/U Admitting Diagnosis Decubitus ulcer/UTI Reviewed Pertinent Medical/Surgical Hx Medical Record Medical History Comment: PMH: Afib, CHF, bed-bound after fall w/ injury to knee per physician notes Pt also found w/ gangrenous/infected R and L trochanteric decubitus wounds and weakness of the bilat proximal LE, d/t underlying comorbid medical condition per physician notes 08/31 Sx debridement of R/L trochanteric decubitus wound w/ gangrene infection Chief Librarian Music Department note 08/28 revealed: 1. Left Buttock near Ischium: Unstageable pressure ulcer, present on admission. 2. Right Buttock near Ischium: Stage IV pressure ulcer, present on admission. 3. Left Heel: Chronic unstageable pressure ulcer, present on admission. 4. Right Heel: Blanchable redness, present on admission SARS-CoV-2 Ag (Rapid) Negative 08/26 Subjective Information: RD bedside visit deferred d/t high workload. Per physician notes, pt had changes in mental status, s/p head CT (09/03) no acute changes found, pts mentation has since improved; pts is refusing SNF placement and wants pt to go home w/ home health. Per EMR review, PO intake average of 34% x7 meal records since 09/01; LBM x1 09/04; Nitish scale: 12 stage 4 wound R. buttocks, L. buttock wound, L. heel dry scab/wound; BLE 1+ pitting edema; Flexiseal in place draining loose dark brown stool; PO intake 29% x 7 meals, pt is not meeting nutritional needs. Current Diet Order/Nutrition Support: Cardiac, Rajesh BID, Ensure Enlive TID x2 days Patient/Significant Other Unable To Verbalize Education Provided Not Indicated Pertinent Medications: k-dur, lasix, vancomycin, Coreg Pertinent Labs: K 2.9 L (09/06) Height (Feet) 5 feet Height (Inches) 5.00 inches Weight (Pounds) 237 pounds NEW WT: 235#/106.7 kg (08/31) 2# wt loss possibly d/t fluid shifts Patient Weight 107.501 kg Body Mass Index 39.43 kg/m2 %IBW 190 [place]/Adjusted Body Weight 125#/56.8 kg. 153#/70 kg Recent Weight Change Unable to verify Weight Status Obese Food Allergies Unable to verify Estimated Energy Expenditure (kcals/day) 4167-0433 (30-35 kcal/kg IBW d/t obesity, wound healing, post-op) Estimated Protein Required (g/day) 85-114 (1.5-2 gm/kg IBW d/t obesity, wound healing, post-op) Estimated Fluid Required (l/day) 1.7-2 (30-35 ml/kg IBW d/t wound healing) Problem/Etiology/Signs/Symptoms Increased nutritional needs R/T metabolic demands AEB estimated nutritional requirements for wound healing and post-op. *Ongoing Expected Outcomes/Goals - Monitor advancement of diet, appetite, and PO intakes w/ goal of pt meeting >80% of estimated nutritional needs, labs trending WNL, normal GI function, and skin integrity/wt maintenance Dietitian Recommendations * Cardiac diet, Ensure Enlive TID, Rajesh BID (supplements yield 1230 kcal/day, 65 gm protein/day) * Consider MVI w/ minerals, VIT C, and 2-week course of zinc sulfate for wound healing * Consider appetite stimulant * Encourage PO intake Follow Up High Risk: F/U in 2-3 days
[2021-09-07] MEDS: ACETAMINOPHEN 500 MG TABLET PO PRN (15:47)
[2021-09-07] MEDS: FUROSEMIDE 20 MG TABLET PO SCH (17:56)
[2021-09-07] MEDS: VANCOMYCIN HCL 1,000 MG in NS 250 ML IV SCH (21:19)
[2021-09-07] MEDS: VANCOMYCIN HCL 500 MG in NS 100 ML IV SCH (21:26)
[2021-09-08] VITALS (7 sets, daily range): BP systolic 114–130
[2021-09-08] MEDS: ACETAMINOPHEN 500 MG TABLET PO PRN ×3 (05:31→22:10)
[2021-09-08 08:02] LABS: BASOPHILS % (AUTO) 0.1 % (0.0-2.0); EOSINOPHILS % (AUTO) 0.3 % (0.0-4.0); HEMATOCRIT 33.7 % (36-48); HEMOGLOBIN 11.1 g/dL (12.0-16.0); LYMPHOCYTES # (AUTO) 1.9 K/uL (1.0-5.5); LYMPHOCYTES % (AUTO) 28.5 % (20.5-51.5); MEAN CORPUSCULAR HEMOGLOBIN 27 pg (27-31); MEAN CORPUSCULAR HGB CONC 33 % (32-36); MEAN CORPUSCULAR VOLUME 81 fL (79.0-98.0); MONOCYTES # (AUTO) 0.5 K/uL (0.0-1.0); MONOCYTES % (AUTO) 7.6 % (1.7-9.3); NEUTROPHILS # (AUTO) 4.1 K/uL (1.8-7.7); NEUTROPHILS % (AUTO) 63.5 % (40.0-70.0); PLATELET COUNT (AUTO) 213 K/uL (130-430); RED BLOOD CELL COUNT(AUTO) 4.18 MIL/uL (4.2-6.2); RED CELL DISTRIBUTION WIDTH 17.3 % (9.0-15.0); WHITE BLOOD COUNT (AUTO) 6.5 K/uL (4.8-10.8)
[2021-09-08 08:38] LABS: ANION GAP 5 (5-15); CALCIUM 7.8 mg/dL (8.4-11.0); CHLORIDE 105 mmol/L (98-107); CREATININE 0.82 mg/dL (0.55-1.30); GLUCOSE 95 mg/dL (70-99); SODIUM SERUM 142 mmol/L (136-145); UREA NITROGEN, BLOOD 16 mg/dL (8-21)
[2021-09-08 09:01] LABS: POTASSIUM 2.8 mmol/L (3.5-5.1)
[2021-09-08 09:08] LABS: C-REACTIVE PROTEIN QUANT 2.8 mg/dL (0-0.5)
[2021-09-08] MEDS ORDERED: POTASSIUM CHLORIDE 40 MEQ in NS 250 ML IV ONE (10:00)
[2021-09-08 10:31] LABS: ERYTHROCYTE SEDIMENTATION RATE 17 MM/HR (0-20)
[2021-09-08] MEDS: ASPIRIN 81 MG TAB.CHEW PO SCH (10:49)
[2021-09-08] MEDS: CARVEDILOL 3.125 MG TABLET (COREG) PO SCH ×2 (10:49→22:07)
[2021-09-08] MEDS: CEFEPIME 2 GM in D5W 100 ML IV SCH ×2 (10:49→22:09)
[2021-09-08] MEDS: POTASSIUM CHLORIDE 20 MEQ TAB.PRT.SR PO SCH ×2 (10:50→22:00)
[2021-09-08] MEDS: FUROSEMIDE 40 MG TABLET PO SCH (10:50)
[2021-09-08] MEDS: BALSAM PERU/CASTOR OIL 56.7 GM OINT...G. TP SCH (10:51)
--- NOTE | 2021-09-08 18:00 | NUR ---
Miss Islas has been assessed as indicated. She has been medicated for s/s of discomfort with Tylenol only. Fecal management continues to leak due to lack of rectal tone. She has been seen by Neuro. this principal technical writer spoke with her and attempted to coordinate a conversation the the neurologist. She requires assistance to eat and has tolerated food well. she has difficulty with word choice and startles easily with each interaction with staff. She will continue to be monitored by staff for s/s of distress or discomfort
[2021-09-08] MEDS: FUROSEMIDE 20 MG TABLET PO SCH (18:09)
--- NOTE | 2021-09-08 19:30 | NUR ---
Handoff has been given to Yazmin
--- NOTE | 2021-09-08 19:40 | NUR ---
Opening note late entry d/t patient care Received report from JANY Jordan. Patient is resting in bed, resting on ESPINOZA mattress, eyes open, AOx1 she, smiles and waves hello yet she does not carry out conversation, no words; mostly repeats "oh". No distress and nonlabored breahing on 2L NC. Skin is warm dry. PICC to TATY is patent; IV infusing well. She has nunes catheter drainage bag to gravity, and flexiseal bag at bedside. Bed is locked in lowest position, side rails up 3x, bed alarm on and call light w/in reach.
[2021-09-08] MEDS: VANCOMYCIN HCL 500 MG in NS 100 ML IV SCH (21:20)
--- NOTE | 2021-09-08 22:10 | NUR ---
Meds, Tylenol Scheduled meds and Tylenol for pain, given crushed and mixed with applesauce. Patient was cooperative and finished applesauce
--- NOTE | 2021-09-09 02:30 | NUR ---
WOUND CARE / PICTURES Provided wound care; will update MST charting. Weekly pictures taken.
--- NOTE | 2021-09-09 03:52 | NUR ---
Resting eyes closed Patient is presently calm and quiet, resting w/eyes closed. No distress, symmetrical rise and fall of chest. Safety and isolation precautions in place.
--- NOTE | 2021-09-09 06:50 | NUR ---
closing note Patient resting w/eyes closed, no distress. Needs met throughout shift, Safety and isolation precautions in place.
[2021-09-09 06:56] LABS: BASOPHILS % (AUTO) 0.3 % (0.0-2.0); EOSINOPHILS % (AUTO) 0.3 % (0.0-4.0); HEMATOCRIT 33.7 % (36-48); LYMPHOCYTES # (AUTO) 1.4 K/uL (1.0-5.5); LYMPHOCYTES % (AUTO) 20.5 % (20.5-51.5); MEAN CORPUSCULAR HEMOGLOBIN 26 pg (27-31); MEAN CORPUSCULAR HGB CONC 33 % (32-36); MEAN CORPUSCULAR VOLUME 81 fL (79.0-98.0); MONOCYTES # (AUTO) 0.5 K/uL (0.0-1.0); MONOCYTES % (AUTO) 7.5 % (1.7-9.3); NEUTROPHILS # (AUTO) 4.9 K/uL (1.8-7.7); NEUTROPHILS % (AUTO) 71.4 % (40.0-70.0); PLATELET COUNT (AUTO) 207 K/uL (130-430); RED BLOOD CELL COUNT(AUTO) 4.18 MIL/uL (4.2-6.2); RED CELL DISTRIBUTION WIDTH 17.7 % (9.0-15.0); WHITE BLOOD COUNT (AUTO) 6.9 K/uL (4.8-10.8)
[2021-09-09 07:50] LABS: ALANINE AMINOTRANSFERASE 10 U/L (12-78); ALBUMIN 1.9 g/dL (3.4-4.8); ANION GAP 6 (5-15); ASPARTATE AMINOTRANSFERASE 22 U/L (10-37); CALCIUM 7.9 mg/dL (8.4-11.0); CHLORIDE 108 mmol/L (98-107); CREATININE 0.87 mg/dL (0.55-1.30); GLUCOSE 90 mg/dL (70-99); POTASSIUM 3.4 mmol/L (3.5-5.1); SODIUM SERUM 144 mmol/L (136-145); TOTAL BILIRUBIN 0.2 mg/dL (0.0-1.0); UREA NITROGEN, BLOOD 20 mg/dL (8-21)
[2021-09-09 08:00] VITALS: BP_SYST 163
[2021-09-09 08:01] LABS: C-REACTIVE PROTEIN QUANT 2.4 mg/dL (0-0.5)
[2021-09-09 08:15] LABS: ERYTHROCYTE SEDIMENTATION RATE 19 MM/HR (0-20)
[2021-09-09] MEDS ORDERED: POTASSIUM CHLORIDE 20 MEQ TAB.PRT.SR PO ONE (10:00)
[2021-09-09] MEDS: POTASSIUM CHLORIDE 20 MEQ TAB.PRT.SR PO SCH ×2 (10:26→20:46)
[2021-09-09] MEDS: FUROSEMIDE 40 MG TABLET PO SCH (10:26)
[2021-09-09] MEDS: ASPIRIN 81 MG TAB.CHEW PO SCH (10:26)
[2021-09-09] MEDS: CARVEDILOL 3.125 MG TABLET (COREG) PO SCH ×2 (10:27→20:44)
[2021-09-09] MEDS: CEFEPIME 2 GM in D5W 100 ML IV SCH ×2 (10:28→21:29)
[2021-09-09] MEDS: BALSAM PERU/CASTOR OIL 56.7 GM OINT...G. TP SCH (10:29)
[2021-09-09 11:27] VITALS: BP_SYST 126
[2021-09-09 15:25] VITALS: BP_SYST 130
--- NOTE | 2021-09-09 15:48 | NUR ---
called the floor and spoke with patient nurse torey, requested accurate weight on patient. Waiting for call back
[2021-09-09] MEDS: FUROSEMIDE 20 MG TABLET PO SCH (18:59)
--- NOTE | 2021-09-09 19:04 | NUR ---
MRI OF THE HEAD DELAYED Miss Islas was taken by radiology transfer staff to complete MRI. Despite no notification to floor staff it was discovered that the MRI was not completed. The note stated that her abdomen did not fit the machine. This was despite Miss Islas having successfully completed a spinal MRI earlier this month. This medical writer spoke with Marilynn in radiology. She states that the examination will be re-attempted tomorrow with an abdominal binder. A message was left with Dr Mcdaniels's office recorder. Mr Nata Islas's was made aware of the delay [phone]
[2021-09-09 20:18] VITALS: BP_SYST 114
[2021-09-09] MEDS: VANCOMYCIN HCL 500 MG in NS 100 ML IV SCH (20:43)
--- NOTE | 2021-09-09 21:00 | NUR ---
received bedside report from rn. assignment changed. pt in bed resting 2100 beds already given by other nurse, will continue to monitor,
[2021-09-09] MEDS: ACETAMINOPHEN 500 MG TABLET PO PRN (22:06)
--- NOTE | 2021-09-09 22:22 | NUR ---
1929 Pt. in bed, confused, No acute distress noted 2129 Report and care given over to Amado RN, Pt. with no distress, given her pm meds.
[2021-09-10 00:23] VITALS: BP_SYST 111
--- NOTE | 2021-09-10 00:36 | NUR ---
PAGED PAGED DOCTOR ANNA WHO IS ONCALL
[2021-09-10] MEDS: traMADol HCL HCL 50 MG TABLET (ULTRAM) PO PRN ×2 (00:58→09:10)
[2021-09-10 06:42] LABS: BASOPHILS % (AUTO) 0.4 % (0.0-2.0); EOSINOPHILS # (AUTO) 0.1 K/uL (0.0-0.4); EOSINOPHILS % (AUTO) 0.7 % (0.0-4.0); HEMATOCRIT 34.4 % (36-48); HEMOGLOBIN 11.1 g/dL (12.0-16.0); LYMPHOCYTES # (AUTO) 1.9 K/uL (1.0-5.5); LYMPHOCYTES % (AUTO) 26.2 % (20.5-51.5); MEAN CORPUSCULAR HEMOGLOBIN 26 pg (27-31); MEAN CORPUSCULAR HGB CONC 32 % (32-36); MEAN CORPUSCULAR VOLUME 81 fL (79.0-98.0); MONOCYTES # (AUTO) 0.6 K/uL (0.0-1.0); MONOCYTES % (AUTO) 8.1 % (1.7-9.3); NEUTROPHILS # (AUTO) 4.7 K/uL (1.8-7.7); NEUTROPHILS % (AUTO) 64.6 % (40.0-70.0); PLATELET COUNT (AUTO) 218 K/uL (130-430); RED BLOOD CELL COUNT(AUTO) 4.23 MIL/uL (4.2-6.2); RED CELL DISTRIBUTION WIDTH 18.2 % (9.0-15.0); WHITE BLOOD COUNT (AUTO) 7.3 K/uL (4.8-10.8)
[2021-09-10 07:15] LABS: ANION GAP 6 (5-15); CALCIUM 7.8 mg/dL (8.4-11.0); CHLORIDE 108 mmol/L (98-107); CREATININE 0.88 mg/dL (0.55-1.30); GLUCOSE 84 mg/dL (70-99); POTASSIUM 3.8 mmol/L (3.5-5.1); SODIUM SERUM 145 mmol/L (136-145); UREA NITROGEN, BLOOD 22 mg/dL (8-21)
[2021-09-10 08:00] VITALS: BP_SYST 155
[2021-09-10 08:05] LABS: C-REACTIVE PROTEIN QUANT 2.3 mg/dL (0-0.5)
--- NOTE | 2021-09-10 08:15 | NUR ---
Opening Notes Patient is awake, alert and oriented x1. Pt is noted moaning and yelling while in bed. Confused, unable to reorient at this time. Mild SOB at rest. Pt remains on 2 liters via NC, tolerating well. FLACC scale, pt shows signs of pain at this time, grimacing on initial assessment. PICC LINE noted on TATY, double lumen, TKO. FC and flexiseal draining by gravity. Contact isolation for HEEL BUILDER urine. Pending MRI of the head today. All needs met at this time. Safety and fall precautions in place. Bed in lowest position, alarm on, locked. Will continue to monitor.
[2021-09-10] MEDS: CEFEPIME 2 GM in D5W 100 ML IV SCH (09:08)
[2021-09-10] MEDS: POTASSIUM CHLORIDE 20 MEQ TAB.PRT.SR PO SCH ×2 (09:09→21:39)
[2021-09-10] MEDS: ASPIRIN 81 MG TAB.CHEW PO SCH (09:09)
[2021-09-10] MEDS: FUROSEMIDE 40 MG TABLET PO SCH (09:09)
[2021-09-10] MEDS: BALSAM PERU/CASTOR OIL 56.7 GM OINT...G. TP SCH (09:10)
[2021-09-10] MEDS: CARVEDILOL 3.125 MG TABLET (COREG) PO SCH ×2 (09:10→21:39)
[2021-09-10 10:31] LABS: ERYTHROCYTE SEDIMENTATION RATE 16 MM/HR (0-20)
[2021-09-10 11:25] VITALS: BP_SYST 119
[2021-09-10] MEDS ORDERED: LORazepam 2 MG/ML VIAL IVP ONE (12:15)
--- NOTE | 2021-09-10 13:00 | NUR ---
MRI NOT COMPLETE D/T MACHINE NOT ABLE TO ACCOMMODATE PATIENTS SIZE. Will notify charge nurse and Dr. Mcdaniels.
[2021-09-10 15:36] VITALS: BP_SYST 130
[2021-09-10 15:37] VITALS: BP_SYST 126
--- NOTE | 2021-09-10 16:39 | NUR ---
Nutrition F/U Admitting Diagnosis Decubitus ulcer/UTI Reviewed Pertinent Medical/Surgical Hx Medical Record Medical History Comment: PMH: Afib, CHF, bed-bound after fall w/ injury to knee per physician notes Pt also found w/ gangrenous/infected R and L trochanteric decubitus wounds and weakness of the bilat proximal LE, d/t underlying comorbid medical condition per physician notes 08/31 Sx debridement of R/L trochanteric decubitus wound w/ gangrene infection Fashion Illustrator note 08/28 revealed: 1. Left Buttock near Ischium: Unstageable pressure ulcer, present on admission. 2. Right Buttock near Ischium: Stage IV pressure ulcer, present on admission. 3. Left Heel: Chronic unstageable pressure ulcer, present on admission. 4. Right Heel: Blanchable redness, present on admission SARS-CoV-2 Ag (Rapid) Negative 08/26 Subjective Information: RD bedside visit deferred d/t high workload. 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 Per EMR review, pt is A/O x1; confused; on 2 L O2 via NC; MRI was not completed earlier today d/t machine not able to accommodate pt's size; PO intake average of 44% x7 meal records since 09/07; LBM x2 09/09; Flexiseal continues draining to gravity; Nitish scale: 9, L/R buttocks wounds noted; BLE non-pitting edema. Pt is not meeting nutritional needs. Current Diet Order/Nutrition Support: Cardiac, Rajesh BID, Ensure Enlive TID x5 days Patient/Significant Other Unable To Verbalize Education Provided Not Indicated Pertinent Medications: k-dur, lasix, vancomycin, coreg Pertinent Labs: K 3.8 WNL, BUN 22 H, CRP 2.3 H Height (Feet) 5 feet Height (Inches) 5.00 inches Weight (Pounds) 237 pounds NEW WT: 235#/106.7 kg (08/31); 214#/97.2 kg (09/09) 21# wt loss within 9 days, possibly d/t fluid shifts a/w CHF NEW Body Mass Index 35.6 kg/m2 %IBW 171 [place]/Adjusted Body Weight 125#/56.8 kg. 147#/66.9 kg Recent Weight Change Unable to verify Weight Status Obese Food Allergies Unable to verify Estimated Energy Expenditure (kcals/day) 4400-8551 (30-35 kcal/kg IBW d/t obesity, wound healing, post-op) Estimated Protein Required (g/day) 85-114 (1.5-2 gm/kg IBW d/t obesity, wound healing, post-op) Estimated Fluid Required (l/day) 1.7-2 (30-35 ml/kg IBW d/t wound healing) Problem/Etiology/Signs/Symptoms Increased nutritional needs R/T metabolic demands AEB estimated nutritional requirements for wound healing and post-op. *Ongoing Expected Outcomes/Goals - Monitor advancement of diet, appetite, and PO intakes w/ goal of pt meeting >80% of estimated nutritional needs, labs trending WNL, normal GI function, and skin integrity/wt maintenance Dietitian Recommendations * Cardiac diet, Ensure Enlive TID, Rajesh BID (supplements yield 1230 kcal/day, 65 gm protein/day) * Consider MVI w/ minerals, VIT C, and 2-week course of zinc sulfate for wound healing * Consider appetite stimulant * Encourage PO intake Follow Up Moderate Risk: F/U in 3-5 days
--- NOTE | 2021-09-10 16:44 | NUR ---
Dietitian Recommendations * Cardiac diet, Ensure Enlive TID, Rajesh BID (supplements yield 1230 kcal/day, 65 gm protein/day) * Consider MVI w/ minerals, VIT C, and 2-week course of zinc sulfate for wound healing * Consider appetite stimulant * Encourage PO intake LP, RD Please refer to Nutrition F/U for details.
--- NOTE | 2021-09-10 17:39 | NUR ---
ST EVALUATION COMPLETED. ST TX NOT INDICATED AT THIS TIME. PT UNABLE TO FOLLOW MOST COMMANDS AND GENERALLY PLEASANT BUT CONFUSED.
[2021-09-10] MEDS: FUROSEMIDE 20 MG TABLET PO SCH (18:22)
--- NOTE | 2021-09-10 18:34 | NUR ---
Closing Notes Patient is awake, alert and oriented x2. Intermittently confused, able to reorient. No agitation noted at this time. Calm demeanor. Pt remains on bedrest. No resp distress noted. Breathing is even and unlabored, 2 liters via NC, tolerating well. Pt denies any pain at this time. PICC line on TATY, double lumen, saline lock. FC and flexiseal draining by gravity. Contact precautions. All needs met at this time. Safety and fall precautions in place. Bed in lowest position, alarm on, locked. Will continue to monitor.
[2021-09-10 20:00] VITALS: BP_SYST 118
[2021-09-10] MEDS: VANCOMYCIN HCL 500 MG in NS 100 ML IV SCH (21:35)
[2021-09-11 00:22] VITALS: BP_SYST 122
[2021-09-11 06:34] LABS: BASOPHILS % (AUTO) 0.4 % (0.0-2.0); EOSINOPHILS # (AUTO) 0.1 K/uL (0.0-0.4); EOSINOPHILS % (AUTO) 0.7 % (0.0-4.0); HEMATOCRIT 33.3 % (36-48); LYMPHOCYTES # (AUTO) 1.9 K/uL (1.0-5.5); LYMPHOCYTES % (AUTO) 20.2 % (20.5-51.5); MEAN CORPUSCULAR HEMOGLOBIN 27 pg (27-31); MEAN CORPUSCULAR HGB CONC 33 % (32-36); MEAN CORPUSCULAR VOLUME 81 fL (79.0-98.0); MONOCYTES # (AUTO) 0.8 K/uL (0.0-1.0); MONOCYTES % (AUTO) 8.2 % (1.7-9.3); NEUTROPHILS # (AUTO) 6.6 K/uL (1.8-7.7); NEUTROPHILS % (AUTO) 70.5 % (40.0-70.0); PLATELET COUNT (AUTO) 238 K/uL (130-430); RED CELL DISTRIBUTION WIDTH 17.9 % (9.0-15.0); WHITE BLOOD COUNT (AUTO) 9.4 K/uL (4.8-10.8)
--- NOTE | 2021-09-11 07:32 | NUR ---
OPENING NOTE: REPORT RCVD FROM OUT GOING NOC RN, ALL CARES ASSUMED.
[2021-09-11 07:47] LABS: ALANINE AMINOTRANSFERASE 8 U/L (12-78); ANION GAP 6 (5-15); ASPARTATE AMINOTRANSFERASE 18 U/L (10-37); C-REACTIVE PROTEIN QUANT 1.7 mg/dL (0-0.5); CALCIUM 8.4 mg/dL (8.4-11.0); CHLORIDE 110 mmol/L (98-107); CREATININE 0.78 mg/dL (0.55-1.30); GLUCOSE 100 mg/dL (70-99); POTASSIUM 3.4 mmol/L (3.5-5.1); SODIUM SERUM 147 mmol/L (136-145); TOTAL BILIRUBIN 0.6 mg/dL (0.0-1.0); UREA NITROGEN, BLOOD 24 mg/dL (8-21)
[2021-09-11] MEDS: POTASSIUM CHLORIDE 20 MEQ TAB.PRT.SR PO SCH ×2 (08:04→20:24)
[2021-09-11] MEDS: ASPIRIN 81 MG TAB.CHEW PO SCH (08:04)
[2021-09-11] MEDS: FUROSEMIDE 40 MG TABLET PO SCH (08:05)
[2021-09-11] MEDS: CARVEDILOL 3.125 MG TABLET (COREG) PO SCH ×2 (08:05→20:24)
--- NOTE | 2021-09-11 08:21 | NUR ---
PATIENT POCKETS PO MEDICATIONS AND ATTEMPTS TO SPIT THEM OUT. MEDICATIONS CRUSHED.
--- NOTE | 2021-09-11 08:21 | NUR ---
SPEECH CONSULT PLACED FOR EVAL, PATIENT HAS NOTABLE COUGH WITH DRINKING LIQUIDS. LIQUIDS REMOVED FROM BEDSIDE PENDING EVAL.
[2021-09-11] MEDS: BALSAM PERU/CASTOR OIL 56.7 GM OINT...G. TP SCH (09:00)
--- NOTE | 2021-09-11 09:20 | NUR ---
CXR COMPLETED AT BEDSIDE, PT TOLERATED WELL.
--- NOTE | 2021-09-11 09:58 | NUR ---
DR. CASTILLO MAKING ROUNDS, BEDSIDE REPORT GIVEN.
[2021-09-11] MEDS: ALBUTEROL SULFATE 0.083% 2.5 MG/3 ML VIAL.NEB INH PRN (10:06)
[2021-09-11 10:57] LABS: ERYTHROCYTE SEDIMENTATION RATE 16 MM/HR (0-20)
--- NOTE | 2021-09-11 11:38 | NUR ---
DAUGHTER AT BEDSIDE, ALL QUESTIONS ANSWERED AT THIS TIME.
[2021-09-11 11:52] VITALS: BP_SYST 121
--- NOTE | 2021-09-11 14:14 | NUR ---
CALLED [facility] RAD DEPT, SPOKE WITH TECH. PER TECH PATIENTS ABD CRISTIAN WILL NOT FIT INTO MRI MACHINE. WILL MAKE VICE PRESIDENT REGULATORY AWARE.
[2021-09-11] MEDS: BACLOFEN 10 MG TABLET PO SCH ×2 (15:00→20:23)
--- NOTE | 2021-09-11 16:29 | NUR ---
WOUND CARE COMPLETED PER ORDERS, PATIENT TOLERATED WELL.
--- NOTE | 2021-09-11 16:29 | NUR ---
MONTOYA CATHETER CARE COMPLETED WITH CHG WIPES, PATIENT TOLERATED WELL.
[2021-09-11 16:35] VITALS: BP_SYST 119
--- NOTE | 2021-09-11 16:57 | NUR ---
ST EVALUATION COMPLETED. ST TX NOT INDICATED AT THIS TIME. RECOMMEND PO DIET OF MECHANICAL SOFT/NECTAR THICK LIQUID. 1:1 ASSISTANCE FOR ALL ORAL INTAKE AND FULL ASPIRATION PRECAUTIONS
--- NOTE | 2021-09-11 17:00 | NUR ---
PATIENT SEEN BY SPEECH, RECOMMENDATIONS MADE AND WILL RELAY TO
--- NOTE | 2021-09-11 17:30 | NUR ---
PATIENT POCKETING FOOD DURING DINNER, PATIENT BEGINS TO COUGH WITH SWALLOWING. TRAY REMOVED, CHARGE AWARE AND MD PAGED.
[2021-09-11] MEDS: FUROSEMIDE 20 MG TABLET PO SCH (17:57)
--- NOTE | 2021-09-11 19:13 | NUR ---
CLOSING NOTE: REPORT GIVEN TO INCOMING NOC RN PRANAV, ALL CARES ENDORSED
[2021-09-11 20:00] VITALS: BP_SYST 117
--- NOTE | 2021-09-11 20:00 | NUR ---
REPORT RCVD FROM OUT GOING AM RN, ALL CARES ASSUMED. PT AOX1 TO NAME ONLY, CONFUSED, PICC TATY NOTED, REPOSITIONED PER COMFORT, RECTAL TUBE AND MONTOYA CATH NOTED, CALL LIGHT WITH REACH, SIDE RAILS UPX4, BED IN LOWEST POSITION, WILL CONTINUE TO MONITOR.
[2021-09-11] MEDS: GABAPENTIN 300 MG CAPSULE PO SCH (20:23)
[2021-09-11] MEDS: ACETAMINOPHEN 500 MG TABLET PO PRN (20:23)
[2021-09-11] MEDS: VANCOMYCIN HCL 500 MG in NS 100 ML IV SCH (20:24)
--- NOTE | 2021-09-12 | NUR ---
NO CHANGES NOTED FROM PREVIOUS ASSESSMENT, REPOSITIONED PER COMFORT, ALL FALLS PROTOCOLS MAINTAINED, WILL CONTINUE TO MONITOR.
[2021-09-12 01:09] VITALS: BP_SYST 123
--- NOTE | 2021-09-12 06:19 | NUR ---
PT RESTING QUIETLY IN BED ASLEEP, NO S/S OF DISTRESS OR DISCOMFORT NOTED, BREATHING EVEN AND UNLABORED, SATURATION STILL ON 2L NC, ORAL CARE PROVIDED, WOUND CARE DONE, REPOSITIONED PT PER COMFORT, ALL FALL PROTOCOLS MAINTAINED, WILL CONTINUE TO MONITOR.
[2021-09-12 06:24] LABS: BASOPHILS % (AUTO) 0.4 % (0.0-2.0); EOSINOPHILS # (AUTO) 0.1 K/uL (0.0-0.4); EOSINOPHILS % (AUTO) 0.8 % (0.0-4.0); HEMOGLOBIN 10.4 g/dL (12.0-16.0); LYMPHOCYTES # (AUTO) 1.7 K/uL (1.0-5.5); LYMPHOCYTES % (AUTO) 20.7 % (20.5-51.5); MEAN CORPUSCULAR HEMOGLOBIN 26 pg (27-31); MEAN CORPUSCULAR HGB CONC 33 % (32-36); MEAN CORPUSCULAR VOLUME 81 fL (79.0-98.0); MONOCYTES # (AUTO) 0.8 K/uL (0.0-1.0); MONOCYTES % (AUTO) 9.8 % (1.7-9.3); NEUTROPHILS # (AUTO) 5.6 K/uL (1.8-7.7); NEUTROPHILS % (AUTO) 68.3 % (40.0-70.0); PLATELET COUNT (AUTO) 217 K/uL (130-430); RED BLOOD CELL COUNT(AUTO) 3.96 MIL/uL (4.2-6.2); RED CELL DISTRIBUTION WIDTH 18.1 % (9.0-15.0); WHITE BLOOD COUNT (AUTO) 8.2 K/uL (4.8-10.8)
[2021-09-12 06:55] LABS: CHLORIDE 111 mmol/L (98-107); POTASSIUM 3.5 mmol/L (3.5-5.1)
[2021-09-12 07:22] LABS: ANION GAP 5 (5-15); C-REACTIVE PROTEIN QUANT 1.9 mg/dL (0-0.5); CALCIUM 8.1 mg/dL (8.4-11.0); CREATININE 0.87 mg/dL (0.55-1.30); GLUCOSE 91 mg/dL (70-99); SODIUM SERUM 148 mmol/L (136-145); UREA NITROGEN, BLOOD 29 mg/dL (8-21)
--- NOTE | 2021-09-12 07:25 | NUR ---
SHIFT REPORT REPORT GIVEN TO DEDRICK RN FOR CONTINUITY OF CARE, ALL QUESTIONS WERE ANSWERED AND RN VERBALIZED UNDERSTANDING.
--- NOTE | 2021-09-12 07:44 | NUR ---
RN OPENING NOTE REPORT WAS ENDORSED BY NIGHT NURSE. PATIENT APPEARS TO BE RESTING WITH BOTH EYES CLOSED VISIBLE BREATHING NO SIGNS OF ANY DISTRESS. ALL SAFETY PRECAUTIONS IN PLACE. CLOSE TO NURSES STATION.
[2021-09-12 08:28] VITALS: BP_SYST 116
[2021-09-12] MEDS: BALSAM PERU/CASTOR OIL 56.7 GM OINT...G. TP SCH (09:00)
--- NOTE | 2021-09-12 10:05 | NUR ---
medication Patients scheduled medication given per order. patient tolerated well and swallowed well with no signs of pocketing. patient is awake and alert asking about Landrum catheter. patient has all safety precautions in place no signs of any distress, breathing is equal and non labored. close to nurses station.
[2021-09-12] MEDS: BACLOFEN 10 MG TABLET PO SCH ×3 (10:25→20:53)
[2021-09-12] MEDS: POTASSIUM CHLORIDE 20 MEQ TAB.PRT.SR PO SCH ×2 (10:26→20:54)
[2021-09-12] MEDS: CARVEDILOL 3.125 MG TABLET (COREG) PO SCH ×2 (10:27→20:54)
[2021-09-12] MEDS: ASPIRIN 81 MG TAB.CHEW PO SCH (10:28)
[2021-09-12] MEDS: FUROSEMIDE 40 MG TABLET PO SCH (10:28)
[2021-09-12] MEDS: CEFEPIME 2 GM in D5W 100 ML IV SCH ×2 (10:29→22:55)
[2021-09-12 11:13] VITALS: BP_SYST 114; BP_SYST 152
[2021-09-12 11:30] LABS: ERYTHROCYTE SEDIMENTATION RATE 16 MM/HR (0-20)
--- NOTE | 2021-09-12 14:50 | NUR ---
labored breathing Patient is having SOB on 2 L nasal cannula.RT called, breathing treatment was given. MD called orders were received. patient was suctioned by RT small to moderate secretions clear liquid. patient placed non venteri mask 15L 50%. patient states she no longer feels SOB. orders were placed,no other needs at this time. Addendum: 09/12/21 at 1511 by Suzan Galan RN medication held due to aspiration risk
[2021-09-12] MEDS: ALBUTEROL SULFATE 0.083% 2.5 MG/3 ML VIAL.NEB INH PRN (15:20)
--- NOTE | 2021-09-12 15:20 | NUR ---
RT NOTE: 1520 Titrated venturi mask to 12LPM 40% FiO2. Patient tolerating well. RN notified of change. Will continue to titrate. Addendum: 09/12/21 at 1537 by Jane Pineda RT Amended: Links added.
--- NOTE | 2021-09-12 15:35 | NUR ---
CONSULTATION PAGED REASON FOR CONSULTATION LABORED BREATHING WAS CONSULT CALED?Y PERSON WHO WAS NOTIFIED:PABLITO CONSULTING PHYSICIAN: ( OFFSET DUPLICATING MACHINE OPERATOR) PIGEON FANCIER SPECIALTY:PULMONARY PIGEON FANCIER PHONE NUMBER:[phone] REQUESTING PHYSICIAN:MILAGROS ALAS
--- NOTE | 2021-09-12 15:37 | NUR ---
CONSULTATION PAGED REASON FOR CONSULTATION LABORED BREATHING WAS CONSULT CALED?Y PERSON WHO WAS NOTIFIED:BINA CONSULTING PHYSICIAN:UNRULY ALAS BIG DATA ADMIN SPECIALTYCARDIO: BIG DATA ADMIN PHONE NUMBER:[phone] REQUESTING PHYSICIAN:MILAGROS ALAS
--- NOTE | 2021-09-12 15:58 | NUR ---
RT NOTE: 1558 Adjusted venturi mask to 9LPM 35% FiO2. SpO2 at 99% and HR at 117 bpm. Tolerating change well, will continue to titrate oxygen as tolerated. JANY Barnard made aware. BiPAP on standby. Addendum: 09/12/21 at 1600 by Jane Pineda RT Amended: Links added.
[2021-09-12 16:32] VITALS: BP_SYST 145
[2021-09-12] MEDS: dilTIAZem HCL IVP 5 MG/ML VIAL IVP PRN (16:33)
--- NOTE | 2021-09-12 16:46 | NUR ---
CARDIZEM GIVEN PER ORDER. PATIENT IS AWAKE AND ALERT SITTING UP IN BED, NO SIGNS OF ANY DISTRESS, BREATHING IS NON LABORED. ALL SAFETY PRECAUTIONS IN PLACE. NO OTHER NEEDS AT THIS TIME.
[2021-09-12] MEDS: FUROSEMIDE 20 MG TABLET PO SCH (18:25)
--- NOTE | 2021-09-12 18:27 | NUR ---
RN CLOSING NOTE/MEDICATION PATIENTS SCHEDULED MEDICATION GIVEN PER ORDER. PATIENT TOLERATED WELL AND SWALLOWED WELL. BREATHING IS NON LABORED, ON VENTERI MASK. PATIENT HAS ALL SAFETY PRECAUTIONS IN PLACE. PATIENT IS CLOSE TO NURSES STATION. PATIENTS MONTOYA CATHETER DRAINING TO GRAVITY, RECTAL TUBE IN PLACE AND DRAINING WELL. PATIENT CISSE NO OTHER NEEDS AT THIS TIME.
[2021-09-12 20:00] VITALS: BP_SYST 119
[2021-09-12] MEDS: VANCOMYCIN HCL 500 MG in NS 100 ML IV SCH (20:32)
[2021-09-12] MEDS: GABAPENTIN 300 MG CAPSULE PO SCH (20:53)
[2021-09-13 00:31] VITALS: BP_SYST 94
[2021-09-13 04:00] VITALS: BP_SYST 116
--- NOTE | 2021-09-13 05:42 | NUR ---
PATIENT ASLEEP. TOLERATED 35% VENTURI MASK. NOTED WITH SLIGHT SOB BUT OTHERWISE PATIENT IS STABLE. O2 SATURATION RANGES FROM 95-99%. TOLERATING NEBS TREATMENT GIVEN BY RT. PICC LINE TO TATY INTACT AND PATENT. VOIDING WELL THROUGH MONTOYA CATHETER IN MODERATE CLEAR YELLOW URINE. DRESSING TO BUTTOCKS CHANGE PER PROTOCOL. AFEBRILE. VS STABLE. KEPT WARM AND COMFORTABLE. MORNING CARE DONE. ALL NEEDS ATTENDED. CALL LIGHT PLACED WITHIN REACH. MONITORED CLOSELY.
[2021-09-13 06:55] LABS: BASOPHILS # (AUTO) 0.1 K/uL (0.0-0.2); BASOPHILS % (AUTO) 0.7 % (0.0-2.0); EOSINOPHILS % (AUTO) 0.3 % (0.0-4.0); HEMATOCRIT 35.1 % (36-48); HEMOGLOBIN 11.3 g/dL (12.0-16.0); LYMPHOCYTES # (AUTO) 1.5 K/uL (1.0-5.5); LYMPHOCYTES % (AUTO) 13.8 % (20.5-51.5); MEAN CORPUSCULAR HEMOGLOBIN 26 pg (27-31); MEAN CORPUSCULAR HGB CONC 32 % (32-36); MEAN CORPUSCULAR VOLUME 81 fL (79.0-98.0); MONOCYTES % (AUTO) 9.1 % (1.7-9.3); NEUTROPHILS # (AUTO) 8.4 K/uL (1.8-7.7); NEUTROPHILS % (AUTO) 76.1 % (40.0-70.0); PLATELET COUNT (AUTO) 242 K/uL (130-430); RED BLOOD CELL COUNT(AUTO) 4.31 MIL/uL (4.2-6.2); RED CELL DISTRIBUTION WIDTH 18.7 % (9.0-15.0)
[2021-09-13] MEDS: ALBUTEROL SULFATE 0.083% 2.5 MG/3 ML VIAL.NEB INH PRN (07:42)
[2021-09-13 07:46] LABS: ANION GAP 6 (5-15); C-REACTIVE PROTEIN QUANT 3.5 mg/dL (0-0.5); CALCIUM 8.3 mg/dL (8.4-11.0); CHLORIDE 111 mmol/L (98-107); CREATININE 0.93 mg/dL (0.55-1.30); GLUCOSE 101 mg/dL (70-99); POTASSIUM 3.5 mmol/L (3.5-5.1); SODIUM SERUM 150 mmol/L (136-145); UREA NITROGEN, BLOOD 30 mg/dL (8-21)
[2021-09-13] MEDS: CEFEPIME 2 GM in D5W 100 ML IV SCH ×2 (08:49→21:37)
[2021-09-13] MEDS: POTASSIUM CHLORIDE 20 MEQ TAB.PRT.SR PO SCH ×2 (08:50→21:04)
[2021-09-13] MEDS: CARVEDILOL 3.125 MG TABLET (COREG) PO SCH ×2 (08:50→21:04)
[2021-09-13] MEDS: FUROSEMIDE 40 MG TABLET PO SCH (08:50)
[2021-09-13] MEDS: ASPIRIN 81 MG TAB.CHEW PO SCH (08:51)
[2021-09-13] MEDS: BACLOFEN 10 MG TABLET PO SCH ×3 (08:51→21:04)
[2021-09-13] MEDS: BALSAM PERU/CASTOR OIL 56.7 GM OINT...G. TP SCH (08:59)
[2021-09-13 09:56] LABS: ERYTHROCYTE SEDIMENTATION RATE 23 MM/HR (0-20)
[2021-09-13] MEDS ORDERED: ALTEPLASE 2 MG VIAL MC ONE (10:15)
[2021-09-13] MEDS ORDERED: D5W 500 ML IV ONE (10:45)
[2021-09-13 12:36] VITALS: BP_SYST 111
[2021-09-13 16:15] VITALS: BP_SYST 114
[2021-09-13] MEDS: FUROSEMIDE 20 MG TABLET PO SCH (17:11)
[2021-09-13] MEDS: VANCOMYCIN HCL 500 MG in NS 100 ML IV SCH (19:36)
[2021-09-13 20:00] VITALS: BP_SYST 111
--- NOTE | 2021-09-13 20:30 | NUR ---
CLEANED PATIENT ON BED WITH THE HELP OF THE COPY SUPERVISOR. DRESSING TO BUTTOCKS AND SACRUM CHANGED. WET TO DRY PACKING TO RIGHT AND LEFT HIP APPLIED AND COVERED WITH DRY DRESSING. SACRUM WAS ALSO COVERED WITH DRY DRESSING. PATIENT TOLERATED PROCEDURE WELL.
[2021-09-13] MEDS: GABAPENTIN 300 MG CAPSULE PO SCH (21:04)
[2021-09-14] VITALS (7 sets, daily range): BP systolic 104–145
--- NOTE | 2021-09-14 05:21 | NUR ---
PATIENT REMAINS ON 3 LPM NASAL CANNULA. ASLEEP. STABLE. NO DISTRESS. AFEBRILE. AAOX2-3. COOPERATIVE. O2 SATURATION RANGES BETWEEN 96-98%. PICC LINE HARD TO FLUSH. INSERTED A PIV ON THE RIGHT HAND. REMAINS ON IV VANCO AND MAXIPIME; NO ADR NOTED. STILL ON MONTOYA AND FLEXI-SEAL. REPOSITIONED FROM SIDE TO SIDE PER PROTOCOL. DRESSING TO BUTTOCKS AND SACRUM CHANGED. VOIDING AND STOOLING WELL. TOLERATED PO MEDS WELL. ALL NEEDS ATTENDED. CALL LIGHT PLACED WITHIN REACH. MONITORED CLOSELY.
[2021-09-14 06:40] LABS: BASOPHILS % (AUTO) 0.2 % (0.0-2.0); EOSINOPHILS % (AUTO) 0.2 % (0.0-4.0); HEMATOCRIT 35.1 % (36-48); HEMOGLOBIN 11.5 g/dL (12.0-16.0); LYMPHOCYTES # (AUTO) 1.2 K/uL (1.0-5.5); LYMPHOCYTES % (AUTO) 10.3 % (20.5-51.5); MEAN CORPUSCULAR HEMOGLOBIN 27 pg (27-31); MEAN CORPUSCULAR HGB CONC 33 % (32-36); MEAN CORPUSCULAR VOLUME 81 fL (79.0-98.0); NEUTROPHILS # (AUTO) 9.7 K/uL (1.8-7.7); NEUTROPHILS % (AUTO) 81.3 % (40.0-70.0); PLATELET COUNT (AUTO) 243 K/uL (130-430); RED BLOOD CELL COUNT(AUTO) 4.32 MIL/uL (4.2-6.2); RED CELL DISTRIBUTION WIDTH 18.1 % (9.0-15.0); WHITE BLOOD COUNT (AUTO) 11.9 K/uL (4.8-10.8)
[2021-09-14 07:05] LABS: ALANINE AMINOTRANSFERASE 9 U/L (12-78); ALBUMIN 1.9 g/dL (3.4-4.8); ANION GAP 5 (5-15); ASPARTATE AMINOTRANSFERASE 16 U/L (10-37); C-REACTIVE PROTEIN QUANT 9.8 mg/dL (0-0.5); CALCIUM 8.8 mg/dL (8.4-11.0); CHLORIDE 112 mmol/L (98-107); CREATININE 0.79 mg/dL (0.55-1.30); GLUCOSE 100 mg/dL (70-99); POTASSIUM 3.4 mmol/L (3.5-5.1); SODIUM SERUM 150 mmol/L (136-145); TOTAL BILIRUBIN 0.8 mg/dL (0.0-1.0); UREA NITROGEN, BLOOD 30 mg/dL (8-21)
--- NOTE | 2021-09-14 07:20 | NUR ---
rn opening note report was endorsed by night nurse. patient appears to be resting breathing is equal and non labored. patient has all safety precautions in place. no other needs at this time.
[2021-09-14] MEDS: POTASSIUM CHLORIDE 20 MEQ TAB.PRT.SR PO SCH ×2 (08:37→21:00)
[2021-09-14] MEDS: ASPIRIN 81 MG TAB.CHEW PO SCH (08:38)
[2021-09-14] MEDS: BACLOFEN 10 MG TABLET PO SCH ×3 (08:38→21:00)
[2021-09-14] MEDS: FUROSEMIDE 40 MG TABLET PO SCH (08:38)
[2021-09-14] MEDS: CARVEDILOL 3.125 MG TABLET (COREG) PO SCH ×2 (08:39→21:00)
[2021-09-14] MEDS: BALSAM PERU/CASTOR OIL 56.7 GM OINT...G. TP SCH (08:40)
--- NOTE | 2021-09-14 08:50 | NUR ---
medication Attempted to give patients scheduled medication patients thicken per order, crushed medication attempted to give with small bite of apple sauce, patient appears to be pocketing and would not swallow, oral suction provided. patient is awake with eyes open but not speaking. patient is in high fowlers position.
--- NOTE | 2021-09-14 09:50 | NUR ---
CONSULTATION PAGED REASON FOR CONSULTATION AMS WAS CONSULT CALED?Y PERSON WHO WAS NOTIFIED:TEXT MESSAGED CONSULTING PHYSICIAN:POLO STARR CLOUD OPERATIONS ENGINEER SPECIALTY:NEURO CLOUD OPERATIONS ENGINEER PHONE NUMBER:[phone] REQUESTING PHYSICIAN:ELIANE ALAS
[2021-09-14 10:12] LABS: ERYTHROCYTE SEDIMENTATION RATE 30 MM/HR (0-20)
[2021-09-14] MEDS: CEFEPIME 2 GM in D5W 100 ML IV SCH ×2 (10:13→21:59)
--- NOTE | 2021-09-14 10:14 | NUR ---
RECONSULTED DR Donavon KEENE, NEURO RE: AMS. WILL SEE PT WITHIN THE HOUR.
--- NOTE | 2021-09-14 11:50 | NUR ---
rn rounding patient is awake and sitting in bed. patients breathing is equal and non labored. patient has all safety precautions in place. patient has no other needs at this time. patient is unable to speak at this time. she will open eyes but unable to follow basic commands. no other needs at this time.
--- NOTE | 2021-09-14 13:10 | NUR ---
ST EVALUATION COMPLETED. ST TX NOT INDICATED AT THIS TIME. RECOMMEND NPO WITH ALTERNATIVE MEANS OF NUTRITION DUE TO INCONSISTENT SWALLOW FUNCTION AND SAFETY.
--- NOTE | 2021-09-14 14:00 | NUR ---
incontinence care provided with head strength and conditioning coach. patient tolerated well no signs of any distress, breathing is equal and non labored. close to nurses station. no other needs at this time.
--- NOTE | 2021-09-14 15:28 | NUR ---
vanessa tan patient had swallow eval done and didnt pass she recommended npo alternate form of nutrition. Addendum: 09/14/21 at 1543 by Suzan Galan RN orders were received for consult, and tpn. patient is sitting in bed no signs of any distress, breathing is equal and non labored. all safety precautions in place. close to nurses station no other needs at this time.
[2021-09-14] MEDS ORDERED: DEXTROSE 50% JECT 50 ML DISP.SYRIN IVP PRN (15:45)
[2021-09-14] MEDS ORDERED: *TPN PER PHARMACY XX PRN (15:45)
--- NOTE | 2021-09-14 16:05 | NUR ---
CONSULTATION PAGED REASON FOR CONSULTATION:ALTERNATE SOURCE OF NUTRITION WAS CONSULT CALED?Y PERSON WHO WAS NOTIFIED:VIC CONSULTING PHYSICIAN:ALBARO PEREZ ([facility]ITION CONSULTANT) HUMAN SERVICES WORKER SPECIALTY:GI HUMAN SERVICES WORKER PHONE NUMBER:[phone] REQUESTING PHYSICIAN:MILAGROS ALAS
--- NOTE | 2021-09-14 16:13 | NUR ---
CONSULTATION PAGED/CALLED Reason for Consultation: [] ALTERNATE SOURCE OF NUTRITION Person Who was Notified: [] KAUSHIK Consulting Physician: [] DR GRIFFITH Consulting Sales Manager Specialty: [] GI Ordering Physician: [] DR Bryan CASTILLO
--- NOTE | 2021-09-14 17:07 | NUR ---
EEG patient is having EEG done tech states it shows she is having status epilepsy at this moment on the monitor , paged Dr. Mcdaniels medication orders were received called pharmacy to verify. seizure precautions put in place.
[2021-09-14] MEDS ORDERED: levETIRAcetam 500 MG in NS 100 ML IV ONE (17:30)
[2021-09-14] MEDS: FUROSEMIDE 20 MG TABLET PO SCH (17:34)
[2021-09-14] MEDS: GABAPENTIN 300 MG CAPSULE PO SCH (21:00)
[2021-09-14] MEDS ORDERED: NACL 0.9% 1,000 ML IV ONE ×2 (21:00→22:00)
--- NOTE | 2021-09-14 22:05 | NUR ---
1904 RECEIVED REPORT FROM AM RN. DAUGHTER WAS AT THE BEDSIDE. PATIENT WAS SITTING UP ON BED. APPEARS LETHARGIC. NONVERBAL. WITHDRAWS TO PAINFUL STIMULI. 1999 VS CHECKED AND RECORDED AND NOTED THAT PATIENT WAS TACHYCARDIC AND BP WAS 118/74. [address] CASTILLO AND UPDATED ABOUT THE PATIENT. ORDERED TO GIVE THE PRN CARDIZEM, INSERT NGT FOR OTHER PO MEDS TO BE GIVEN, AND GIVE ATIVAN 1 MG Q4H PRN ROSARIO SEIZURES. 2099 WENT IN THE ROOM TO GIVE CARDIZEM FOR TACHYCARDIA ABOCE 110 AND WHEN BP WAS CHECKED IT WAS 98/42 ON THE VIGNESH AND 92/37 ON THE LLL. CALLED DR. CASTILLO AGAIN AND INFORMED THAT CARDIZEM WAS NOT GIVEN BECAUSE OF HYPOTENSION. MD ORDERED IV BOLUS OF NS 1000 ML WHICH WAS HANGED IMMEDIATELY. 2139 CALLED DAUGHTER AND SPOKE TO HER. UPDATED ABOUT THE PATIENT'S CURRENT CHANGES IN CONDITION. ALL QUESTIONS ASKED WERE ANSWERED. VERBALIZED UNDERSTANDING. 2149 PATIENT WAS PLACED ON LOW COTTON'S AND NOTED THAT SEIZURES EVENTUALLY STOPPED. DID NOT GAVE ATIVAN EARLIER BECAUSE OF HYPOTENSION. BP WAS RECHECKED AND OBTAINED THE FOLLOWING ON THE LEFT ARM. BP-103/61; HR-128 AND WAS RECHECKED AGAIN AFTER 10 MIN AND WAS BP-97/43; HR-125. 2209 WENT BACK TO THE ROOM TO HANG MAXIPIME AND VS FOLLOWS; 96.6-560-75-106/66-97% o2 SATS. 2214 INSERTED NGT AND WILL REQUEST FOR CXR TO CONFIRM PLACEMENT. WILL MONITOR PATIENT'S PROGRESS AND ANY CHANGES IN CONDITIN AND UPDATE THE MD ACCORDINGLY.
[2021-09-14] MEDS: IPRATROPIUM/ALBUTEROL SULFATE 3 ML AMPUL.NEB (DUONEB) INH PRN (23:14)
[2021-09-14] MEDS ORDERED: FUROSEMIDE 20 MG/2 ML VIAL IVP ONE (23:30)
[2021-09-14] MEDS ORDERED: methylPREDNISolone SOD SUCC/PF 62.5 MG/ML VIAL IVP ONE (23:30)
[2021-09-14] MEDS ORDERED: FUROSEMIDE 20 MG/2 ML VIAL ONE (23:38)
[2021-09-14] MEDS ORDERED: methylPREDNISolone SOD SUCC/PF 62.5 MG/ML VIAL ONE (23:38)
[2021-09-15] VITALS (9 sets, daily range): BP systolic 99–136
[2021-09-15] MEDS: dilTIAZem HCL IVP 5 MG/ML VIAL IVP PRN (00:01)
--- NOTE | 2021-09-15 00:22 | NUR ---
2300 PATIENT DESATTED DOWN TO 70'S, NOTIFIED CHARGE NURSE. RT AT BEDSIDE AND PROVIDED HIGH CONCENTRATION OXYGEN AND THEN SUCTIONED THE PATIENT FROM NOSE AND THROAT AND OBTAINED LARGE THICK SECRETIONS AND THEN PATIENT WAS PLACED ON 40% VENTURI MASK AND O2 SATURATION WENT BACK UP TP 95-99%. CALLED AND NOTIFIED DR. CASTILLO AND MD ORDERED TO GIVE PATIENT ONE DOSE OF LASIX 20 MG AND SOLUMEDROL 125 MG. 0010 HR WAS ON 130'S AND BP WAS STABLE NOW AT 129/49 SO CARDIZEM PRN WAS GIVEN FOR THE HR OF 135. 0010 CALLED DAUGHTER SAGAR AND UPDATED ABOUT THE PATIENT'S CONDITION. ALL QUESTIONS ASKED WERE ANSWERED. VERBALIZED UNDERSTANDING. PATIENT WAS KEPT WARM AND COMFORTABLE ON BED. PLACED ON HIGH COTTON'S POSITION FOR BETTER LUNG EXPANSION AND REPOSITIONED FROM SIDE TO SIDE. ALL NEEDS ATTENDED. CALL LIGHT PLACED WITHIN REACH. MONITORED CLOSELY.
[2021-09-15] MEDS: LORazepam 2 MG/ML VIAL IVP PRN ×2 (01:06→23:19)
--- NOTE | 2021-09-15 05:30 | NUR ---
PATIENT WAS CLEANED AND CHANGED. SACRAL AND BUTTOCKS WOUND WERE ALSO CHANGED. FLEXISEAL AND MONTOYA CATHETER INTACT. VS CHECKED FOLLOWS: 96.3-921-75-130/55-96% O2 SATS. REMAINS ON 40% VENTURI MASK, TOLERATED WELL. NO MORE SOB NOTED. BREATHING UNLABORED. STILL WITH CONGESTION. NGT ADVANCED BY 2 CM. RECOMMENDED BY THE RADIOLOGIST PER XRAY RESULT. WILL CALL DAUGHTER AND UPDATE ABOUT THE PATIENT. REPOSITIONED TO SIDES. BS CHECK WAS DONE AND RECORDED. LABS WERE DRAWN ORDERED. VOIDED AND STOOLED. INCONTINENT X2. CALL LIGHT PLACED WITHIN REACH. MONITORED CLOSELY.
[2021-09-15 06:45] LABS: BASOPHILS # (AUTO) 0.1 K/uL (0.0-0.2); BASOPHILS % (AUTO) 0.6 % (0.0-2.0); HEMOGLOBIN 12.1 g/dL (12.0-16.0); LYMPHOCYTES # (AUTO) 0.9 K/uL (1.0-5.5); LYMPHOCYTES % (AUTO) 6.7 % (20.5-51.5); MEAN CORPUSCULAR HEMOGLOBIN 26 pg (27-31); MEAN CORPUSCULAR HGB CONC 32 % (32-36); MEAN CORPUSCULAR VOLUME 82 fL (79.0-98.0); MONOCYTES # (AUTO) 0.3 K/uL (0.0-1.0); MONOCYTES % (AUTO) 2.3 % (1.7-9.3); NEUTROPHILS # (AUTO) 12.1 K/uL (1.8-7.7); NEUTROPHILS % (AUTO) 90.4 % (40.0-70.0); PLATELET COUNT (AUTO) 278 K/uL (130-430); RED BLOOD CELL COUNT(AUTO) 4.66 MIL/uL (4.2-6.2); RED CELL DISTRIBUTION WIDTH 18.8 % (9.0-15.0); WHITE BLOOD COUNT (AUTO) 13.4 K/uL (4.8-10.8)
--- NOTE | 2021-09-15 06:53 | NUR ---
DR. CASTLE MADE ROUNDS. ORDERED STAT ABG FOR THE PATIENT. ORDER NOTED AND CARRIED OUT. RT WAS PAGED AND INFORMED OF THE STAT ORDER.
[2021-09-15 07:29] LABS: ALANINE AMINOTRANSFERASE 3 U/L (12-78); ALBUMIN 2.1 g/dL (3.4-4.8); ANION GAP 12 (5-15); ASPARTATE AMINOTRANSFERASE 18 U/L (10-37); C-REACTIVE PROTEIN QUANT 12.9 mg/dL (0-0.5); CALCIUM 8.4 mg/dL (8.4-11.0); CHLORIDE 113 mmol/L (98-107); CREATININE 0.98 mg/dL (0.55-1.30); GLUCOSE 128 mg/dL (70-99); PHOSPHORUS 3.8 mg/dL (2.7-4.5); POTASSIUM 3.5 mmol/L (3.5-5.1); SODIUM SERUM 155 mmol/L (136-145); TOTAL BILIRUBIN 0.6 mg/dL (0.0-1.0); UREA NITROGEN, BLOOD 36 mg/dL (8-21)
[2021-09-15 08:18] LABS: TRIGLYCERIDES 81 mg/dL (30-150)
[2021-09-15] MEDS: ASPIRIN 81 MG TAB.CHEW PO SCH (08:47)
[2021-09-15] MEDS: levETIRAcetam 500 MG in NS 100 ML IV SCH ×2 (08:47→21:19)
[2021-09-15] MEDS: CARVEDILOL 3.125 MG TABLET (COREG) PO SCH ×2 (09:00→21:57)
[2021-09-15] MEDS: FUROSEMIDE 40 MG TABLET PO SCH (09:00)
[2021-09-15] MEDS ORDERED: D10W 500 ML IV SCH (09:00)
[2021-09-15] MEDS: VANCOMYCIN HCL 500 MG in NS 100 ML IV SCH (09:02)
[2021-09-15] MEDS: BALSAM PERU/CASTOR OIL 56.7 GM OINT...G. TP SCH (09:03)
[2021-09-15] MEDS: POTASSIUM CHLORIDE 20 MEQ TAB.PRT.SR PO SCH ×2 (09:05→21:56)
[2021-09-15] MEDS: BACLOFEN 10 MG TABLET PO SCH (09:05)
[2021-09-15 09:40] LABS: ERYTHROCYTE SEDIMENTATION RATE 38 MM/HR (0-20)
[2021-09-15] MEDS: CEFEPIME 2 GM in D5W 100 ML IV SCH ×2 (10:34→21:27)
--- NOTE | 2021-09-15 12:15 | NUR ---
Nutritional F/U Admitting Diagnosis Decubitus ulcer/UTI Reviewed Pertinent Medical/Surgical Hx Medical Record Medical History Comment: PMH: Afib, CHF, bed-bound after fall w/ injury to knee per physician notes Pt also found w/ gangrenous/infected R and L trochanteric decubitus wounds and weakness of the bilat proximal LE, d/t underlying comorbid medical condition per physician notes 08/31 Sx debridement of R/L trochanteric decubitus wound w/ gangrene infection [place] Guide note 08/28 revealed: 1. Left Buttock near Ischium: Unstageable pressure ulcer, present on admission. 2. Right Buttock near Ischium: Stage IV pressure ulcer, present on admission. 3. Left Heel: Chronic unstageable pressure ulcer, present on admission. 4. Right Heel: Blanchable redness, present on admission SARS-CoV-2 Ag (Rapid) Negative 08/26 Subjective Information: RD bedside visit deferred d/t high workload. Per physician notes, pt is more obtunded and unable to follow commands; pt is unable to move her legs; GI consulted for GT insertion d/t failed swallow evaluation, pt not stable for EGD or GT placement d/t episodes of hypotension and desaturation. S/P ST Swallow evaluation (09/14) ST recommend NPO with alternative means of nutrition due to inconsistent swallow function and safety. According to physician notes, pt has NGT in place and receiving TF, however this freelance copywriter was unable to find order for TF, TPN order noted (09/14). Per EMR review, pt has NGT to L nares; abd is soft w/ active bowel sounds; on venti mask; LBM x1 09/12; continues w/ Flexiseal; Nitish scale: 12, L/R buttocks wounds noted; BLE non-pitting edema. Pt is not meeting nutritional needs. Current TPN provides 1097 kcals/day, 43 g protein/day, 1128 total volume, GIR 1.1 mg/kg/min; meeting 64% of lower end of estimated caloric needs and 50% or lower end of estimated protein needs. Pt not yet meeting nutritional needs. RD spoke to pharmD via telephone x [phone] to relay TPN recommendations. Consider NGT feeding to preserve GI function. Current Diet Order/Nutrition Support: NPO x 1 day w/ TPN D40, AA8.5 at 42 ml/hr w/ 20%IL at 5 ml/hr via central line Patient/Significant Other Unable To Verbalize Education Provided Not Indicated Pertinent Medications: k-dur, lasix, vancomycin, coreg, D5W at 40 ml/hr x 12 hrs (85 kcals/day), SSI Pertinent Labs: WBC 13.4 H, Na 155 H, BUN 36 H, BG 128 H, POC BG 136 H, TG 81 WNL, Mg 2.2 H Height (Feet) 5 feet Height (Inches) 5.00 inches Weight (Pounds) 237 pounds NEW WT: 235#/106.7 kg (08/31); 214#/97.2 kg (09/09) 21# wt loss within 9 days, possibly d/t fluid shifts a/w CHF NEW Body Mass Index 35.6 kg/m2 %IBW 171 [place]/Adjusted Body Weight 125#/56.8 kg. 147#/66.9 kg Recent Weight Change Unable to verify Weight Status Obese Food Allergies Unable to verify Estimated Energy Expenditure (kcals/day) 1970-1958 (30-35 kcal/kg IBW d/t obesity, wound healing, post-op) Estimated Protein Required (g/day) 85-114 (1.5-2 gm/kg IBW d/t obesity, wound healing, post-op) Estimated Fluid Required (l/day) 1.7-2 (30-35 ml/kg IBW d/t wound healing) Problem/Etiology/Signs/Symptoms *MODIFIED Increased nutritional needs R/T metabolic demands AEB estimated nutritional requirements for wound healing and post-op. *Ongoing Inadequate nutrition support R/T metabolic demands AEB estimated nutritional requirements for wound healing. *NEW Expected Outcomes/Goals - Monitor tolerance of nutrition w/ goal of pt meeting >80% of estimated nutritional needs, labs trending WNL, normal GI function, and skin integrity/wt maintenance Dietitian Recommendations * Consider initiating Tube Feeding: Glucerna 1.5 at 50 ml/hr (goal rate), Rajesh BID, FWF per MD d/t CHF (Yields: 1960 kcals/day, 104 g protein/ day; Meeting 98% of upper end of estimated caloric needs and 82% of upper end of estimated protein needs) * Consider discontinuing D5W d/t TPN * Consider wean off TPN if enteral nutrition initiated. * If EN not desired, modify TPN to D40, AA10 at 80 ml/hr, 20%IL at 5 ml/hr (Yields: 1930 kcals/day, 96 g protein/day, 2040 ml total volume, GIR 2.7 mg/kg/min; Meetin% of upper end of caloric needs and 84% of upper end of estimated protein needs) Follow Up High Risk: F/U in 2-3 days
--- NOTE | 2021-09-15 12:16 | NUR ---
Dietitian Recommendations * Consider initiating Tube Feeding: Glucerna 1.5 at 50 ml/hr (goal rate), Rajesh BID, FWF per MD d/t CHF (Yields: 1960 kcals/day, 104 g protein/ day; Meeting 98% of upper end of estimated caloric needs and 82% of upper end of estimated protein needs) * Consider discontinuing D5W d/t TPN * Consider wean off TPN if enteral nutrition initiated. * If EN not desired, modify TPN to D40, AA10 at 80 ml/hr, 20%IL at 5 ml/hr (Yields: 1930 kcals/day, 96 g protein/day, 2040 ml total volume, GIR 2.7 mg/kg/min; Meetin% of upper end of caloric needs and 84% of upper end of estimated protein needs) Please refer to Nutrition F/U for details. Addendum: 09/16/21 at [address] NORMA relayed TF recommendations to pt's Primary RN via telephone on 09/16/21 at 1112. NORMA [place]
[2021-09-15] MEDS: FUROSEMIDE 20 MG TABLET PO SCH (17:39)
[2021-09-15] MEDS: INSULIN REGULAR, HUMAN 100 UNITS/ML, 10 ML VIAL (humuLIN R) SUBCUT PRN ×2 (17:41→23:36)
--- NOTE | 2021-09-15 18:17 | NUR ---
pt lethargic,responds to touch stimuli,on O2 venti mask Fio2 40% sat 97$,afib per museum exhibit designer,hr 90-100's,NGT in left nare clamped for meds.IV D10W runs at 40cc per hr via picc line in right upper arm before TPN delivered per pharmacy protocol.total care given,nunes catheter drains clear prudencio urine by gravity and rectal tube drains yellow liquid stool.needs attended,hourly rounds made,safety maintained.
[2021-09-15] MEDS ORDERED: MVI IV SCH ×7 (21:00)
[2021-09-15] MEDS ORDERED: TPN CENTRAL IV SCH ×7 (21:00)
[2021-09-15] MEDS ORDERED: K PHOS IV SCH ×7 (21:00)
[2021-09-15] MEDS ORDERED: POTASSIUM CHLORIDE IV SCH ×7 (21:00)
[2021-09-15] MEDS ORDERED: [UNRECOGNIZED DRUG - OTHER] IV SCH ×7 (21:00)
[2021-09-15] MEDS: FAT EMULSIONS 250 ML IV SCH (21:41)
[2021-09-16] VITALS: BP_SYST 108
[2021-09-16 04:10] VITALS: BP_SYST 115
[2021-09-16] MEDS: INSULIN REGULAR, HUMAN 100 UNITS/ML, 10 ML VIAL (humuLIN R) SUBCUT PRN ×2 (05:39→23:47)
[2021-09-16 07:10] LABS: BASOPHILS % (AUTO) 0.3 % (0.0-2.0); HEMATOCRIT 34.2 % (36-48); HEMOGLOBIN 11.1 g/dL (12.0-16.0); LYMPHOCYTES # (AUTO) 0.9 K/uL (1.0-5.5); LYMPHOCYTES % (AUTO) 7.2 % (20.5-51.5); MEAN CORPUSCULAR HEMOGLOBIN 26 pg (27-31); MEAN CORPUSCULAR HGB CONC 32 % (32-36); MEAN CORPUSCULAR VOLUME 82 fL (79.0-98.0); MONOCYTES # (AUTO) 0.5 K/uL (0.0-1.0); MONOCYTES % (AUTO) 3.8 % (1.7-9.3); NEUTROPHILS # (AUTO) 11.1 K/uL (1.8-7.7); NEUTROPHILS % (AUTO) 88.7 % (40.0-70.0); PLATELET COUNT (AUTO) 248 K/uL (130-430); RED CELL DISTRIBUTION WIDTH 18.6 % (9.0-15.0); WHITE BLOOD COUNT (AUTO) 12.6 K/uL (4.8-10.8)
[2021-09-16 08:00] LABS: ANION GAP 7 (5-15); C-REACTIVE PROTEIN QUANT 6.4 mg/dL (0-0.5); CALCIUM 8.2 mg/dL (8.4-11.0); CHLORIDE 114 mmol/L (98-107); CREATININE 1.02 mg/dL (0.55-1.30); GLUCOSE 177 mg/dL (70-99); PHOSPHORUS 2.5 mg/dL (2.7-4.5); POTASSIUM 3.4 mmol/L (3.5-5.1); SODIUM SERUM 153 mmol/L (136-145); UREA NITROGEN, BLOOD 43 mg/dL (8-21)
[2021-09-16] MEDS: VANCOMYCIN HCL 500 MG in NS 100 ML IV SCH (09:00)
[2021-09-16] MEDS: levETIRAcetam 500 MG in NS 100 ML IV SCH ×2 (09:09→20:08)
[2021-09-16] MEDS: PANTOPRAZOLE SODIUM 40 MG/VIAL (PROTONIX) IVP SCH (09:09)
[2021-09-16] MEDS: CARVEDILOL 3.125 MG TABLET (COREG) PO SCH ×2 (09:10→21:12)
[2021-09-16] MEDS: ASPIRIN 81 MG TAB.CHEW PO SCH (09:11)
[2021-09-16] MEDS: FUROSEMIDE 40 MG TABLET PO SCH (09:11)
[2021-09-16] MEDS: POTASSIUM CHLORIDE 20 MEQ TAB.PRT.SR PO SCH ×2 (09:11→21:11)
[2021-09-16] MEDS: BALSAM PERU/CASTOR OIL 56.7 GM OINT...G. TP SCH (09:12)
[2021-09-16 09:26] LABS: ERYTHROCYTE SEDIMENTATION RATE 25 MM/HR (0-20)
[2021-09-16] MEDS: CEFEPIME 2 GM in D5W 100 ML IV SCH ×2 (10:00→21:02)
--- NOTE | 2021-09-16 10:14 | NUR ---
CONSULT NEPHROLOGY HYPERNATREMIA DR DELAROSA [phone] S/W [facility]
[2021-09-16 11:22] VITALS: BP_SYST 125
--- NOTE | 2021-09-16 11:40 | NUR ---
RT NOTE: 1140 Pt suctioned via right nare. Suctioned moderated, thick, white secretions. Titrated FiO2 to 9LPM 35% fIO2 on venturi mask. SpO2 is at 97-99%. HR 78 and RR 16-18. No issues during NTS. Addendum: 09/16/21 at 1154 by Jane Pineda RT Amended: Links added.
[2021-09-16] MEDS ORDERED: DESMOPRESSIN ACETATE 4 MCG/ML AMP SUBCUT ONE (12:45)
[2021-09-16 15:22] VITALS: BP_SYST 139
--- NOTE | 2021-09-16 16:00 | NUR ---
pt lethargic,responds to touch stimuli and mumbling at times,afebrile,vss,on O2 venti mask Fio2 35% sat 98%,NGT in left nare,started tube feeding glucerna @ 40cc per hr,pharmacist called and notified pt has TF started and it's ok to have both TPN and tube feeding ongoing at same time per pharmacist and TPN wound be weaned off tomorrow if pt able to tolerated tube feeding alone.total care provided wound care done.nunes drains prudencio urine by gravity and rectal flexi seal drains yellow stool.daughter veronica visited at bedside and chelsea called and updated of pt condition per nursing level of knowledge hourly rounds made,safety maintained.continue to monitor pt.
[2021-09-16] MEDS: ACETAMINOPHEN 500 MG TABLET PO PRN (18:00)
[2021-09-16] MEDS: FUROSEMIDE 20 MG TABLET PO SCH (18:00)
[2021-09-16 20:00] VITALS: BP_SYST 124
[2021-09-16] MEDS: FAT EMULSIONS 250 ML IV SCH (20:07)
[2021-09-16] MEDS ORDERED: K PHOS IV SCH ×6 (21:00)
[2021-09-16] MEDS ORDERED: [UNRECOGNIZED DRUG - OTHER] IV SCH ×6 (21:00)
[2021-09-16] MEDS ORDERED: TPN CENTRAL IV SCH ×6 (21:00)
[2021-09-16] MEDS ORDERED: MVI IV SCH ×6 (21:00)
[2021-09-16] MEDS ORDERED: TRACE ELEMENTS IV SCH ×6 (21:00)
[2021-09-16] MEDS: DESMOPRESSIN ACETATE 4 MCG/ML AMP SUBCUT SCH (21:09)
[2021-09-16 23:29] VITALS: BP_SYST 130
[2021-09-17] VITALS (7 sets, daily range): BP systolic 120–140
[2021-09-17] MEDS: LORazepam 2 MG/ML VIAL IVP PRN (00:55)
--- NOTE | 2021-09-17 02:40 | NUR ---
PATIENT REMAINS ASLEEP. NO DISTRESS. FEEDING RUNNING AT 50 CC/HR, TOLERATING WELL. NO RESIDUALS NOTED. REMAINS ON VENTURI MASK AT 35%. AFEBRILE. NO DISTRESS NOTED. GIVEN WITH ATIVAN X1 DURING THIS SHIFT FOR AGITATION. MONTOYA AND FLEXI-SEAL STILL IN PLACE. VOIDING AND STOOLING WELL. KEPT WARM AND COMFORTABLE ON BED. CALL LIGHT PLACED WITHIN REACH. REPORT GIVEN TO CARMEN CARMICHAEL AT 0300.
--- NOTE | 2021-09-17 03:30 | NUR ---
patient cleaned, dressings changed, linens changed at this time
[2021-09-17 06:46] LABS: BASOPHILS # (AUTO) 0.1 K/uL (0.0-0.2); BASOPHILS % (AUTO) 0.4 % (0.0-2.0); EOSINOPHILS % (AUTO) 0.1 % (0.0-4.0); HEMATOCRIT 37.6 % (36-48); LYMPHOCYTES % (AUTO) 8.5 % (20.5-51.5); MEAN CORPUSCULAR HEMOGLOBIN 26 pg (27-31); MEAN CORPUSCULAR HGB CONC 32 % (32-36); MEAN CORPUSCULAR VOLUME 81 fL (79.0-98.0); MONOCYTES # (AUTO) 1.1 K/uL (0.0-1.0); MONOCYTES % (AUTO) 8.6 % (1.7-9.3); NEUTROPHILS # (AUTO) 10.2 K/uL (1.8-7.7); NEUTROPHILS % (AUTO) 82.4 % (40.0-70.0); PLATELET COUNT (AUTO) 248 K/uL (130-430); RED BLOOD CELL COUNT(AUTO) 4.62 MIL/uL (4.2-6.2); RED CELL DISTRIBUTION WIDTH 18.7 % (9.0-15.0); WHITE BLOOD COUNT (AUTO) 12.3 K/uL (4.8-10.8)
--- NOTE | 2021-09-17 07:54 | NUR ---
CLOSING NOTES Patient resting in bed - no s/s pain or distress noted. Respirations even and unlabored - head of bed elevated. IV site patent - no s/ s redness, infection, or infiltration. Bed locked and in lowest position. Bed alarm on.
--- NOTE | 2021-09-17 08:06 | NUR ---
RT NOTES 0806 Placed pt on 6Lpm venturi mask fio2 30%. SpO2 97% HR 112 RR 18. Pt tolerating change well.
[2021-09-17] MEDS: CEFEPIME 2 GM in D5W 100 ML IV SCH ×2 (08:24→22:30)
[2021-09-17] MEDS: levETIRAcetam 500 MG in NS 100 ML IV SCH ×2 (08:24→21:30)
[2021-09-17 08:28] LABS: ANION GAP 11 (5-15); BILIRUBIN,DIRECT 0.2 mg/dL (0.0-0.3); C-REACTIVE PROTEIN QUANT 2.5 mg/dL (0-0.5); CALCIUM 8.2 mg/dL (8.4-11.0); CHLORIDE 110 mmol/L (98-107); CREATININE 0.98 mg/dL (0.55-1.30); GLUCOSE 143 mg/dL (70-99); PHOSPHORUS 2.9 mg/dL (2.7-4.5); SODIUM SERUM 149 mmol/L (136-145); TOTAL BILIRUBIN 0.6 mg/dL (0.0-1.0); UREA NITROGEN, BLOOD 45 mg/dL (8-21)
[2021-09-17] MEDS: ASPIRIN 81 MG TAB.CHEW PO SCH (08:30)
[2021-09-17] MEDS: POTASSIUM CHLORIDE 20 MEQ TAB.PRT.SR PO SCH ×2 (08:30→21:30)
[2021-09-17] MEDS: FUROSEMIDE 40 MG TABLET PO SCH (08:30)
[2021-09-17] MEDS: PANTOPRAZOLE SODIUM 40 MG/VIAL (PROTONIX) IVP SCH ×2 (08:31→08:57)
[2021-09-17] MEDS: CARVEDILOL 3.125 MG TABLET (COREG) PO SCH ×2 (08:31→21:30)
[2021-09-17] MEDS: DESMOPRESSIN ACETATE 4 MCG/ML AMP SUBCUT SCH ×2 (08:32→21:31)
[2021-09-17] MEDS: BALSAM PERU/CASTOR OIL 56.7 GM OINT...G. TP SCH (08:32)
[2021-09-17 08:43] LABS: ALANINE AMINOTRANSFERASE 25 U/L (12-78); ASPARTATE AMINOTRANSFERASE 38 U/L (10-37)
[2021-09-17] MEDS: VANCOMYCIN HCL 500 MG in NS 100 ML IV SCH (08:53)
[2021-09-17 12:00] LABS: ERYTHROCYTE SEDIMENTATION RATE 14 MM/HR (0-20)
[2021-09-17] MEDS ORDERED: K PHOS 15 MM in NS 250 ML IV ONE (13:00)
--- NOTE | 2021-09-17 13:40 | NUR ---
Spoke w/ patient's ,Mr Peace, for approximately 1 hr. He is not willing to consider hospice. He feels the patient will be able to go home and be cared for by him and his step daughter. He voiced concerns about nursing care being provided for his . He feels most of the nurses are providing sub-standard care, the patient is being over medicated for pain and the charting on the patient's chart is lies. He stated the patient does not have dementia and she yells because she is frustrated and she is confused because she has been over medicated. He feels her ALOC is due to dehydration.
--- NOTE | 2021-09-17 13:53 | NUR ---
During my conversation with the , Mr Peace, he also stated he would not plan to consent to a PEG at this time, he stated the MD who would place the tube did not recommend it at this time.
--- NOTE | 2021-09-17 16:40 | NUR ---
received patient from telemetry. continuing care in icu bed 6
[2021-09-17] MEDS: FUROSEMIDE 20 MG TABLET PO SCH (17:16)
--- NOTE | 2021-09-17 19:15 | NUR ---
Opening notes Received report from endorsing morning shift JANY Gomez for continuity of care. Patient is lying in bed with family member at the bedside with IVF NS @ 5 mL/hr, TPN @ 50 and lipids @ 5. Patient's vital signs blood pressure 128/79, heart rate 109, respirations 29, SPO2 @ 96% on room air. Landrum catheter and rectal tube is in place draining to gravity. Bed is locked and in lowest position, fall and safety precautions is in place. Addendum: 09/18/21 at 0050 by Seema Kirkpatrick RN SPO2 @96% on venturi mask 30% @ 10L.
--- NOTE | 2021-09-17 19:20 | NUR ---
endorsed continuation of care to shiftman.
[2021-09-17] MEDS: IPRATROPIUM/ALBUTEROL SULFATE 3 ML AMPUL.NEB (DUONEB) INH PRN (20:58)
[2021-09-18] VITALS (26 sets, daily range): BP systolic 88–140
[2021-09-18] MEDS: dilTIAZem HCL IVP 5 MG/ML VIAL IVP PRN (02:27)
[2021-09-18] MEDS: ACETAMINOPHEN 500 MG TABLET PO PRN (05:59)
[2021-09-18 06:46] LABS: BASOPHILS # (AUTO) 0.1 K/uL (0.0-0.2); BASOPHILS % (AUTO) 0.6 % (0.0-2.0); EOSINOPHILS # (AUTO) 0.1 K/uL (0.0-0.4); EOSINOPHILS % (AUTO) 0.5 % (0.0-4.0); HEMATOCRIT 37.5 % (36-48); HEMOGLOBIN 12.2 g/dL (12.0-16.0); LYMPHOCYTES # (AUTO) 1.7 K/uL (1.0-5.5); LYMPHOCYTES % (AUTO) 10.2 % (20.5-51.5); MEAN CORPUSCULAR HEMOGLOBIN 26 pg (27-31); MEAN CORPUSCULAR HGB CONC 33 % (32-36); MEAN CORPUSCULAR VOLUME 81 fL (79.0-98.0); MONOCYTES # (AUTO) 1.5 K/uL (0.0-1.0); MONOCYTES % (AUTO) 9.3 % (1.7-9.3); NEUTROPHILS % (AUTO) 79.4 % (40.0-70.0); PLATELET COUNT (AUTO) 247 K/uL (130-430); RED BLOOD CELL COUNT(AUTO) 4.64 MIL/uL (4.2-6.2); RED CELL DISTRIBUTION WIDTH 18.4 % (9.0-15.0); WHITE BLOOD COUNT (AUTO) 16.4 K/uL (4.8-10.8)
--- NOTE | 2021-09-18 07:00 | NUR ---
Intubation Patient was intubated by Dr. Carrington. Gave 10 mg of etomidate and 50 mg of recoronium.
[2021-09-18 07:09] LABS: ALANINE AMINOTRANSFERASE 16 U/L (12-78); ALBUMIN 2.1 g/dL (3.4-4.8); ANION GAP 8 (5-15); ASPARTATE AMINOTRANSFERASE 32 U/L (10-37); C-REACTIVE PROTEIN QUANT 2.3 mg/dL (0-0.5); CALCIUM 7.8 mg/dL (8.4-11.0); CHLORIDE 109 mmol/L (98-107); CREATININE 1.06 mg/dL (0.55-1.30); GLUCOSE 126 mg/dL (70-99); POTASSIUM 3.7 mmol/L (3.5-5.1); SODIUM SERUM 144 mmol/L (136-145); TOTAL BILIRUBIN 0.3 mg/dL (0.0-1.0); UREA NITROGEN, BLOOD 52 mg/dL (8-21)
--- NOTE | 2021-09-18 07:10 | NUR ---
RT NOTES 0710 Pt got intubated by Dr Carrington. AC 20,500VT PEEP 5 100% FIO2. 7.5/25cmLL. Bilateral breath sounds heard, Davy chest rise seen. CO2 detector color changed. Sputum culture sent to lab. will continue to monitor pt.
--- NOTE | 2021-09-18 07:11 | NUR ---
Hold Physical Therapy treatment due to transfer to ICU.
[2021-09-18] MEDS ORDERED: PROPOFOL DRIP 100 ML IV PRN (07:15)
--- NOTE | 2021-09-18 07:30 | NUR ---
RECEIVED BEDSIDE REPORT FROM . PT WAS INTUBATED AT 0700 DUE TO BEING UNRESPONSIVE. 7.[address]BE PLACED BY DR PEREZ WITH 25 AT THE LIP. VENT SETTINGS: AC RR 20, TV 500, 100% FI02, AND PEEP OF 5. RIGHT UPPER ARM PICC LINE IN PLACE. PT HOB ELEVATED 45 DEGREES. PT IN AFIB ON THE MONITOR AT 120'S. SBP IN THE 115'S. OXYGEN SATURATION AT 99%. MONTOYA AND FLEXI SEAL IN PLACE DRAINING TO GRAVITY. PROPOFOL ORDERED. BED IN LOWEST POSITION, BED BRAKES ON, BED RAILS UP, CALL LIGHT WITHIN REACH.
[2021-09-18] MEDS: VANCOMYCIN HCL 750 MG in NS 250 ML IV SCH (08:59)
[2021-09-18] MEDS: PANTOPRAZOLE SODIUM 40 MG/VIAL (PROTONIX) IVP SCH (09:00)
[2021-09-18] MEDS: ASPIRIN 81 MG TAB.CHEW PO SCH (09:00)
[2021-09-18] MEDS: DESMOPRESSIN ACETATE 4 MCG/ML AMP SUBCUT SCH ×3 (09:00→22:09)
[2021-09-18] MEDS: levETIRAcetam 500 MG in NS 100 ML IV SCH ×2 (09:00→22:05)
[2021-09-18] MEDS: POTASSIUM CHLORIDE 20 MEQ TAB.PRT.SR PO SCH ×2 (09:00→22:08)
--- NOTE | 2021-09-18 09:00 | NUR ---
RT NOTES 0900 Per ABG PO2 results, FIO2 titrated to .90, pt saturating 99%. will continue to monitor pt.
[2021-09-18] MEDS: ENOXAPARIN SODIUM 40 MG/0.4 ML SYRINGE SUBCUT SCH (09:01)
[2021-09-18] MEDS: BALSAM PERU/CASTOR OIL 56.7 GM OINT...G. TP SCH (09:04)
[2021-09-18] MEDS: CARVEDILOL 3.125 MG TABLET (COREG) PO SCH ×2 (09:10→22:08)
[2021-09-18] MEDS: FUROSEMIDE 40 MG TABLET PO SCH (09:10)
[2021-09-18] MEDS: CEFEPIME 2 GM in D5W 100 ML IV SCH (10:35)
--- NOTE | 2021-09-18 10:45 | NUR ---
PER DR CASTILLO. D/C FINGERSTICKS Q6HRS
--- NOTE | 2021-09-18 11:15 | NUR ---
rt notes 1115 FIO2 titrated to .80, pt saturating 98%. will continue to monitor pt.
[2021-09-18 11:33] LABS: ERYTHROCYTE SEDIMENTATION RATE 18 MM/HR (0-20)
--- NOTE | 2021-09-18 13:22 | NUR ---
Nutritional F/U Admitting Diagnosis Decubitus ulcer/UTI Reviewed Pertinent Medical/Surgical Hx Medical Record Medical History Comment: PMH: Afib, CHF, bed-bound after fall w/ injury to knee per physician notes Pt also found w/ gangrenous/infected R and L trochanteric decubitus wounds and weakness of the bilat proximal LE, d/t underlying comorbid medical condition per physician notes 08/31 Sx debridement of R/L trochanteric decubitus wound w/ gangrene infection Environmental Change Analyst note 08/28 revealed: 1. Left Buttock near Ischium: Unstageable pressure ulcer, present on admission. 2. Right Buttock near Ischium: Stage IV pressure ulcer, present on admission. 3. Left Heel: Chronic unstageable pressure ulcer, present on admission. 4. Right Heel: Blanchable redness, present on admission SARS-CoV-2 Ag (Rapid) Negative 08/26 Subjective Information: RD attended to ICU rounds this morning. Primary RN reported that pt has been tolerating TF well (Glucerna 1.45 at 50 ml/hr, 394 ml seen infused (591 kcal)); plan for MRI to r/o stroke; pt was intubated at 7 am this morning d/t respiratory status deteriorating overnight; TPN no longer infusing. Per EMR review, GI stated pt is not stable for EGN/GT insertion at this time; TF RAte: 50 ml/hr 6/2; GRV: 20 ml 6/3; Glucerna 1.5 TF formula noted 6/3; L NGT noted 6/3; Ve was not available via EMR; Nitish scale: 10 -- please refer to Environmental Change Analyst note 09/28 for details. Pt is not yet meeting nutritional needs and no longer requires Glucerna 1.5 TF formula to modulate glycemic control (this TF formula was likely implemented d/t pt previously on TPN). Current Diet Order/Nutrition Support: Glucerna 1.5 at 50 ml/hr, Rajesh BID, Free Water Flush: 200 via GT x2 days Patient/Significant Other Unable To Verbalize Education Provided Not Indicated Pertinent Medications: lovenox, vancomycin, propofol at 2.915 ml/hr (77 kcal/day), protonix IV, ativan, SSI, lasix Pertinent Labs: WBC 16.4 H, Na 144 WNL, BUN 52 H, BG 126 H, POC BG 119 H, TG 81 WNL, Mg 1.3 H Height (Feet) 5 feet Height (Inches) 5.00 inches Weight (Pounds) 237 pounds NEW WT: 235#/106.7 kg (08/31); 214#/97.2 kg (09/09) 21# wt loss within 9 days, possibly d/t fluid shifts a/w CHF NEW Body Mass Index 35.6 kg/m2 %IBW [address] [place]/Adjusted Body Weight 125#/56.8 kg. 147#/66.9 kg Recent Weight Change Unable to verify Weight Status Obese Food Allergies Unable to verify Estimated Energy Expenditure (kcals/day) 3690-3208 (30-35 kcal/kg IBW d/t obesity, wound healing, post-op) Estimated Protein Required (g/day) 85-114 (1.5-2 gm/kg IBW d/t obesity, wound healing, post-op) Estimated Fluid Required (l/day) Per physician d/t CHF Problem/Etiology/Signs/Symptoms *MODIFIED Increased nutritional needs R/T metabolic demands AEB estimated nutritional requirements for wound healing and post-op. *Ongoing Inadequate nutrition support R/T metabolic demands AEB estimated nutritional requirements for wound healing. *Ongoing Expected Outcomes/Goals - Monitor tolerance of nutrition w/ goal of pt meeting >80% of estimated nutritional needs, labs trending WNL, normal GI function, and skin integrity/wt maintenance Dietitian Recommendations * Jevity 1.5 at 50 ml/hr, Rajesh BID, Prosource daily, Free Water Flush: per physician d/t Hx CHF via NGT Provides: 2040 kcal/day, 97 gm protein/day, and 912 ml free water/day Meets: 103% of upper end of estimated caloric needs and 85% of upper end of estimated protein needs Follow Up High Risk: F/U in 2-3 days
--- NOTE | 2021-09-18 13:32 | NUR ---
Dietitian Recommendations * Jevity 1.5 at 50 ml/hr, Rajesh BID, Prosource daily, Free Water Flush: per physician d/t Hx CHF via NGT Provides: 2040 kcal/day, 97 gm protein/day, and 912 ml free water/day Meets: 103% of upper end of estimated caloric needs and 85% of upper end of estimated protein needs LP, RD Please refer to Nutrition F/U for details.
--- NOTE | 2021-09-18 13:45 | NUR ---
DAUGHTER VIVIAN AT BEDSIDE
--- NOTE | 2021-09-18 14:14 | NUR ---
OZZIE ANDERSON AT BEDSIDE. TWO ARE PRESENT. BOTH IN CONTACT ISOLATION. DAUGHTER VIVIAN ALSO AT BEDSIDE IN CONTACT ISOLATION.
[2021-09-18] MEDS ORDERED: ETOMIDATE 20 MG/ 10 ML VIAL (AMIDATE) ONE (14:23)
[2021-09-18] MEDS ORDERED: ROCURONIUM BROMIDE 10 MG/ML (ZEMURON) ONE (14:23)
--- NOTE | 2021-09-18 15:15 | NUR ---
rt notes 1515 Titrated fio2 to .70, will continue to monitor pt.
--- NOTE | 2021-09-18 17:20 | NUR ---
rt notes 1720 Titrated fio2 to 60%, pt saturating 99% , will continue to monitor pt.
[2021-09-18] MEDS: FUROSEMIDE 20 MG TABLET PO SCH (17:45)
--- NOTE | 2021-09-18 20:00 | NUR ---
OPENING NOTE RECEIVED BEDSIDE REPORT. PT WAS INTUBATED AT 0700 DUE TO BEING UNRESPONSIVE. 7.[address] PEREZ WITH 25 AT THE LIP. VENT SETTINGS: AC RR 20, TV 500, 100% FI02, AND PEEP OF 5. RIGHT UPPER ARM PICC LINE IN PLACE. PT HOB ELEVATED 45 DEGREES. PT IN AFIB ON THE MONITOR AT 120'S. SBP IN THE 115'S. OXYGEN SATURATION AT 99%. MONTOYA AND FLEXI SEAL IN PLACE DRAINING TO GRAVITY. PROPOFOL ORDERED. BED IN LOWEST POSITION, BED BRAKES ON, BED RAILS UP, CALL LIGHT WITHIN REACH.
[2021-09-18] MEDS: PIPERACILLIN/TAZO 4.5GM/DEX-IS 100 ML IV SCH (22:00)
--- NOTE | 2021-09-18 22:00 | NUR ---
FAMILY AT BEDSIDE DAUGHTER VIVIAN AND SON FROM [place] AT BEDSIDE
[2021-09-18] MEDS ORDERED: PIPERACILLIN/TAZOBACTAM 4.5 GM/VIAL (ZOSYN) IV ONE (22:40)
[2021-09-19] VITALS (28 sets, daily range): BP systolic 83–123
--- NOTE | 2021-09-19 05:00 | NUR ---
VENT SETTING CHANGED FIO2 WAS DECREASED FROM 60 TO 50 AND SAT'S REMAIN 98-99
[2021-09-19] MEDS: PIPERACILLIN/TAZO 4.5GM/DEX-IS 100 ML IV SCH ×3 (06:24→21:05)
[2021-09-19 06:48] LABS: BASOPHILS # (AUTO) 0.2 K/uL (0.0-0.2); BASOPHILS % (AUTO) 0.8 % (0.0-2.0); HEMATOCRIT 33.6 % (36-48); HEMOGLOBIN 10.9 g/dL (12.0-16.0); LYMPHOCYTES # (AUTO) 1.7 K/uL (1.0-5.5); LYMPHOCYTES % (AUTO) 9.2 % (20.5-51.5); MEAN CORPUSCULAR HEMOGLOBIN 26 pg (27-31); MEAN CORPUSCULAR HGB CONC 32 % (32-36); MEAN CORPUSCULAR VOLUME 81 fL (79.0-98.0); MONOCYTES # (AUTO) 1.4 K/uL (0.0-1.0); MONOCYTES % (AUTO) 7.8 % (1.7-9.3); NEUTROPHILS # (AUTO) 14.8 K/uL (1.8-7.7); NEUTROPHILS % (AUTO) 82.2 % (40.0-70.0); PLATELET COUNT (AUTO) 173 K/uL (130-430); RED BLOOD CELL COUNT(AUTO) 4.17 MIL/uL (4.2-6.2); RED CELL DISTRIBUTION WIDTH 18.6 % (9.0-15.0)
[2021-09-19 07:08] LABS: ALANINE AMINOTRANSFERASE 14 U/L (12-78); ALBUMIN 1.8 g/dL (3.4-4.8); ANION GAP 8 (5-15); ASPARTATE AMINOTRANSFERASE 25 U/L (10-37); C-REACTIVE PROTEIN QUANT 15.5 mg/dL (0-0.5); CALCIUM 7.9 mg/dL (8.4-11.0); CHLORIDE 111 mmol/L (98-107); CREATININE 1.24 mg/dL (0.55-1.30); GLUCOSE 119 mg/dL (70-99); POTASSIUM 4.2 mmol/L (3.5-5.1); SODIUM SERUM 147 mmol/L (136-145); TOTAL BILIRUBIN 0.8 mg/dL (0.0-1.0); UREA NITROGEN, BLOOD 59 mg/dL (8-21)
--- NOTE | 2021-09-19 07:27 | NUR ---
Report received from outgoing nurse and care assumed. See chart for assessment. [id number] Spolar
[2021-09-19 09:00] LABS: ERYTHROCYTE SEDIMENTATION RATE 41 MM/HR (0-20)
[2021-09-19] MEDS: levETIRAcetam 500 MG in NS 100 ML IV SCH ×2 (09:19→21:02)
[2021-09-19] MEDS: VANCOMYCIN HCL 750 MG in NS 250 ML IV SCH (09:19)
[2021-09-19] MEDS: CARVEDILOL 3.125 MG TABLET (COREG) PO SCH ×2 (09:21→21:02)
[2021-09-19] MEDS: POTASSIUM CHLORIDE 20 MEQ TAB.PRT.SR PO SCH ×2 (09:21→21:01)
[2021-09-19] MEDS: ASPIRIN 81 MG TAB.CHEW PO SCH (09:21)
[2021-09-19] MEDS: FUROSEMIDE 40 MG TABLET PO SCH (09:21)
[2021-09-19] MEDS: D5/0.45 NS 1,000 ML IV SCH ×2 (09:22→19:00)
[2021-09-19] MEDS: PANTOPRAZOLE SODIUM 40 MG/VIAL (PROTONIX) IVP SCH (09:26)
[2021-09-19] MEDS: ENOXAPARIN SODIUM 40 MG/0.4 ML SYRINGE SUBCUT SCH (09:28)
[2021-09-19] MEDS: BALSAM PERU/CASTOR OIL 56.7 GM OINT...G. TP SCH (09:33)
[2021-09-19] MEDS: DESMOPRESSIN ACETATE 4 MCG/ML AMP SUBCUT SCH ×2 (09:36→21:04)
--- NOTE | 2021-09-19 11:00 | NUR ---
Pt appears comfortable. Daughter at bedside. Nuero status seems to be improving slightly with patient able to follow simple commands and is more easily arousable. Will continue to monitor.
--- NOTE | 2021-09-19 16:00 | NUR ---
Pt VS remain stable. In no acute distress or discomfort. Neurological status slightly improved throughout day, pt able to follow very basic commands and arousable with stimuli but still obtunded. Will continue to monitor.
[2021-09-19] MEDS: FUROSEMIDE 20 MG TABLET PO SCH (18:02)
--- NOTE | 2021-09-19 19:34 | NUR ---
report given to oncoming nurse and care relieved.
--- NOTE | 2021-09-19 20:00 | NUR ---
OPENING NOTE RECEIVED BEDSIDE REPORT. PT WAS INTUBATED AND RESPOND TO PAIN ONLY. WITH 7.[address]ACED BY DR PEREZ WITH 25 AT THE LIP. VENT SETTINGS: AC RR 20, TV 500, 100% FI02, AND PEEP OF 5. RIGHT UPPER ARM PICC LINE IN PLACE. PT HOB ELEVATED 45 DEGREES. PT IN AFIB ON THE MONITOR AT 120'S. SBP IN THE 115'S. OXYGEN SATURATION AT 99%. MONTOYA IN PLACE DRAINING TO GRAVITY. PROPOFOL ORDERED. BED IN LOWEST POSITION, BED BRAKES ON, BED RAILS UP, CALL LIGHT WITHIN REACH.
[2021-09-20] VITALS (30 sets, daily range): BP systolic 92–166
[2021-09-20] MEDS: D5/0.45 NS 1,000 ML IV SCH (04:00)
[2021-09-20] MEDS: PIPERACILLIN/TAZO 4.5GM/DEX-IS 100 ML IV SCH ×3 (05:15→21:28)
[2021-09-20 07:05] LABS: BASOPHILS % (AUTO) 0.3 % (0.0-2.0); EOSINOPHILS # (AUTO) 0.1 K/uL (0.0-0.4); EOSINOPHILS % (AUTO) 0.4 % (0.0-4.0); HEMATOCRIT 31.3 % (36-48); HEMOGLOBIN 10.2 g/dL (12.0-16.0); LYMPHOCYTES # (AUTO) 1.2 K/uL (1.0-5.5); LYMPHOCYTES % (AUTO) 8.5 % (20.5-51.5); MEAN CORPUSCULAR HEMOGLOBIN 26 pg (27-31); MEAN CORPUSCULAR HGB CONC 33 % (32-36); MEAN CORPUSCULAR VOLUME 81 fL (79.0-98.0); MONOCYTES # (AUTO) 1.5 K/uL (0.0-1.0); MONOCYTES % (AUTO) 10.3 % (1.7-9.3); NEUTROPHILS # (AUTO) 11.4 K/uL (1.8-7.7); NEUTROPHILS % (AUTO) 80.5 % (40.0-70.0); PLATELET COUNT (AUTO) 136 K/uL (130-430); RED BLOOD CELL COUNT(AUTO) 3.86 MIL/uL (4.2-6.2); RED CELL DISTRIBUTION WIDTH 18.6 % (9.0-15.0); WHITE BLOOD COUNT (AUTO) 14.1 K/uL (4.8-10.8)
--- NOTE | 2021-09-20 07:13 | NUR ---
report received from outgoing nurse and care assumed. No significant events over night and pt remained stable. See chart for morning assessment. Will continue to monitor
[2021-09-20 07:18] LABS: POTASSIUM 3.3 mmol/L (3.5-5.1)
[2021-09-20 08:12] LABS: ANION GAP 9 (5-15); CALCIUM 7.8 mg/dL (8.4-11.0); CHLORIDE 109 mmol/L (98-107); CREATININE 1.33 mg/dL (0.55-1.30); GLUCOSE 130 mg/dL (70-99); SODIUM SERUM 146 mmol/L (136-145); UREA NITROGEN, BLOOD 56 mg/dL (8-21)
[2021-09-20] MEDS: PANTOPRAZOLE SODIUM 40 MG/VIAL (PROTONIX) IVP SCH (08:53)
[2021-09-20] MEDS: DESMOPRESSIN ACETATE 4 MCG/ML AMP SUBCUT SCH ×2 (08:53→21:26)
[2021-09-20] MEDS: ASPIRIN 81 MG TAB.CHEW PO SCH (08:53)
[2021-09-20] MEDS: POTASSIUM CHLORIDE 20 MEQ TAB.PRT.SR PO SCH ×2 (08:54→21:26)
[2021-09-20] MEDS: FUROSEMIDE 40 MG TABLET PO SCH (08:54)
[2021-09-20] MEDS: CARVEDILOL 3.125 MG TABLET (COREG) PO SCH ×2 (08:54→21:26)
[2021-09-20] MEDS: VANCOMYCIN HCL 750 MG in NS 250 ML IV SCH (08:55)
[2021-09-20] MEDS: levETIRAcetam 500 MG in NS 100 ML IV SCH ×2 (08:55→21:25)
[2021-09-20] MEDS: ENOXAPARIN SODIUM 40 MG/0.4 ML SYRINGE SUBCUT SCH (08:57)
[2021-09-20] MEDS: BALSAM PERU/CASTOR OIL 56.7 GM OINT...G. TP SCH (08:57)
[2021-09-20 09:10] LABS: C-REACTIVE PROTEIN QUANT 14.7 mg/dL (0-0.5)
[2021-09-20 10:13] LABS: ERYTHROCYTE SEDIMENTATION RATE 53 MM/HR (0-20)
[2021-09-20] MEDS: KCL 20 mEq in D5W 1000 mL 1,000 ML IV SCH (14:53)
[2021-09-20] MEDS: FUROSEMIDE 20 MG TABLET PO SCH (18:19)
--- NOTE | 2021-09-20 19:23 | NUR ---
report given to oncoming nurse and care relieved. All questions answered and concerns addressed. Pt VS stable
[2021-09-21] VITALS (34 sets, daily range): BP systolic 93–134
[2021-09-21] MEDS: KCL 20 mEq in D5W 1000 mL 1,000 ML IV SCH ×2 (03:05→16:25)
[2021-09-21] MEDS: PIPERACILLIN/TAZO 4.5GM/DEX-IS 100 ML IV SCH ×3 (06:07→21:55)
[2021-09-21 06:39] LABS: BASOPHILS % (AUTO) 0.2 % (0.0-2.0); EOSINOPHILS # (AUTO) 0.1 K/uL (0.0-0.4); HEMATOCRIT 29.1 % (36-48); HEMOGLOBIN 9.6 g/dL (12.0-16.0); LYMPHOCYTES % (AUTO) 10.6 % (20.5-51.5); MEAN CORPUSCULAR HEMOGLOBIN 27 pg (27-31); MEAN CORPUSCULAR HGB CONC 33 % (32-36); MEAN CORPUSCULAR VOLUME 81 fL (79.0-98.0); MONOCYTES % (AUTO) 10.9 % (1.7-9.3); NEUTROPHILS # (AUTO) 7.4 K/uL (1.8-7.7); NEUTROPHILS % (AUTO) 77.3 % (40.0-70.0); PLATELET COUNT (AUTO) 148 K/uL (130-430); RED BLOOD CELL COUNT(AUTO) 3.61 MIL/uL (4.2-6.2); RED CELL DISTRIBUTION WIDTH 19.6 % (9.0-15.0); WHITE BLOOD COUNT (AUTO) 9.5 K/uL (4.8-10.8)
[2021-09-21 07:04] LABS: ALANINE AMINOTRANSFERASE 38 U/L (12-78); ALBUMIN 1.5 g/dL (3.4-4.8); ANION GAP 7 (5-15); ASPARTATE AMINOTRANSFERASE 56 U/L (10-37); CALCIUM 7.5 mg/dL (8.4-11.0); CHLORIDE 108 mmol/L (98-107); CREATININE 1.27 mg/dL (0.55-1.30); GLUCOSE 134 mg/dL (70-99); PHOSPHORUS 2.5 mg/dL (2.7-4.5); POTASSIUM 3.4 mmol/L (3.5-5.1); SODIUM SERUM 143 mmol/L (136-145); TOTAL BILIRUBIN 0.3 mg/dL (0.0-1.0); UREA NITROGEN, BLOOD 52 mg/dL (8-21)
[2021-09-21] MEDS ORDERED: BISMUTH SUBSALICYLATE 240 ML BOTTLE PO PRN (08:45)
[2021-09-21 09:18] LABS: ERYTHROCYTE SEDIMENTATION RATE 74 MM/HR (0-20)
[2021-09-21] MEDS: levETIRAcetam 500 MG in NS 100 ML IV SCH ×2 (10:06→21:32)
[2021-09-21] MEDS: ASPIRIN 81 MG TAB.CHEW PO SCH (10:06)
[2021-09-21] MEDS: PANTOPRAZOLE SODIUM 40 MG/VIAL (PROTONIX) IVP SCH (10:06)
[2021-09-21] MEDS: POTASSIUM CHLORIDE 20 MEQ TAB.PRT.SR PO SCH ×2 (10:07→21:30)
[2021-09-21] MEDS: DESMOPRESSIN ACETATE 4 MCG/ML AMP SUBCUT SCH ×2 (10:08→21:31)
[2021-09-21] MEDS: BALSAM PERU/CASTOR OIL 56.7 GM OINT...G. TP SCH (10:10)
[2021-09-21] MEDS: CARVEDILOL 3.125 MG TABLET (COREG) PO SCH ×2 (10:11→21:00)
[2021-09-21] MEDS: FUROSEMIDE 40 MG TABLET PO SCH (10:11)
[2021-09-21] MEDS: ENOXAPARIN SODIUM 40 MG/0.4 ML SYRINGE SUBCUT SCH (10:13)
[2021-09-21] MEDS: FUROSEMIDE 20 MG TABLET PO SCH (17:45)
[2021-09-22] VITALS (26 sets, daily range): BP systolic 88–126
[2021-09-22] MEDS: LORazepam 2 MG/ML VIAL IVP PRN (01:08)
[2021-09-22 06:29] LABS: BASOPHILS % (AUTO) 0.5 % (0.0-2.0); EOSINOPHILS # (AUTO) 0.1 K/uL (0.0-0.4); EOSINOPHILS % (AUTO) 0.9 % (0.0-4.0); HEMATOCRIT 28.2 % (36-48); HEMOGLOBIN 9.3 g/dL (12.0-16.0); LYMPHOCYTES # (AUTO) 1.2 K/uL (1.0-5.5); LYMPHOCYTES % (AUTO) 14.2 % (20.5-51.5); MEAN CORPUSCULAR HEMOGLOBIN 27 pg (27-31); MEAN CORPUSCULAR HGB CONC 33 % (32-36); MEAN CORPUSCULAR VOLUME 81 fL (79.0-98.0); MONOCYTES # (AUTO) 0.9 K/uL (0.0-1.0); NEUTROPHILS # (AUTO) 6.1 K/uL (1.8-7.7); NEUTROPHILS % (AUTO) 73.4 % (40.0-70.0); PLATELET COUNT (AUTO) 153 K/uL (130-430); RED CELL DISTRIBUTION WIDTH 19.2 % (9.0-15.0); WHITE BLOOD COUNT (AUTO) 8.2 K/uL (4.8-10.8)
[2021-09-22 06:32] LABS: ANION GAP 10 (5-15); CALCIUM 7.5 mg/dL (8.4-11.0); CHLORIDE 106 mmol/L (98-107); GLUCOSE 105 mg/dL (70-99); POTASSIUM 4.3 mmol/L (3.5-5.1); SODIUM SERUM 141 mmol/L (136-145); UREA NITROGEN, BLOOD 45 mg/dL (8-21)
[2021-09-22] MEDS: KCL 20 mEq in D5W 1000 mL 1,000 ML IV SCH ×2 (06:38→18:17)
[2021-09-22] MEDS: PIPERACILLIN/TAZO 4.5GM/DEX-IS 100 ML IV SCH ×3 (06:38→21:23)
[2021-09-22] MEDS: levETIRAcetam 500 MG in NS 100 ML IV SCH ×2 (09:32→21:23)
[2021-09-22] MEDS: PANTOPRAZOLE SODIUM 40 MG/VIAL (PROTONIX) IVP SCH (09:32)
[2021-09-22] MEDS: ASPIRIN 81 MG TAB.CHEW PO SCH (09:33)
[2021-09-22] MEDS: POTASSIUM CHLORIDE 20 MEQ TAB.PRT.SR PO SCH ×2 (09:33→21:28)
[2021-09-22] MEDS: FUROSEMIDE 40 MG TABLET PO SCH (09:34)
[2021-09-22] MEDS: CARVEDILOL 3.125 MG TABLET (COREG) PO SCH ×2 (09:34→21:00)
[2021-09-22] MEDS: DESMOPRESSIN ACETATE 4 MCG/ML AMP SUBCUT SCH ×2 (09:34→21:22)
[2021-09-22] MEDS: BALSAM PERU/CASTOR OIL 56.7 GM OINT...G. TP SCH (09:35)
[2021-09-22] MEDS: ENOXAPARIN SODIUM 40 MG/0.4 ML SYRINGE SUBCUT SCH (09:36)
[2021-09-22] MEDS: FUROSEMIDE 20 MG TABLET PO SCH (18:17)
[2021-09-23] VITALS (30 sets, daily range): BP systolic 91–117
[2021-09-23 06:53] LABS: BASOPHILS % (AUTO) 0.3 % (0.0-2.0); EOSINOPHILS # (AUTO) 0.1 K/uL (0.0-0.4); EOSINOPHILS % (AUTO) 0.8 % (0.0-4.0); HEMATOCRIT 27.6 % (36-48); HEMOGLOBIN 9.2 g/dL (12.0-16.0); LYMPHOCYTES # (AUTO) 1.4 K/uL (1.0-5.5); LYMPHOCYTES % (AUTO) 14.1 % (20.5-51.5); MEAN CORPUSCULAR HEMOGLOBIN 27 pg (27-31); MEAN CORPUSCULAR HGB CONC 33 % (32-36); MEAN CORPUSCULAR VOLUME 80 fL (79.0-98.0); MONOCYTES # (AUTO) 1.1 K/uL (0.0-1.0); MONOCYTES % (AUTO) 10.9 % (1.7-9.3); NEUTROPHILS # (AUTO) 7.3 K/uL (1.8-7.7); NEUTROPHILS % (AUTO) 73.9 % (40.0-70.0); PLATELET COUNT (AUTO) 176 K/uL (130-430); RED BLOOD CELL COUNT(AUTO) 3.47 MIL/uL (4.2-6.2); RED CELL DISTRIBUTION WIDTH 18.7 % (9.0-15.0); WHITE BLOOD COUNT (AUTO) 9.8 K/uL (4.8-10.8)
[2021-09-23 07:24] LABS: ANION GAP 11 (5-15); CALCIUM 7.9 mg/dL (8.4-11.0); CHLORIDE 102 mmol/L (98-107); CREATININE 1.34 mg/dL (0.55-1.30); GLUCOSE 99 mg/dL (70-99); POTASSIUM 4.1 mmol/L (3.5-5.1); SODIUM SERUM 138 mmol/L (136-145); UREA NITROGEN, BLOOD 45 mg/dL (8-21)
[2021-09-23] MEDS: PIPERACILLIN/TAZO 4.5GM/DEX-IS 100 ML IV SCH ×3 (07:45→21:08)
[2021-09-23] MEDS: KCL 20 mEq in D5W 1000 mL 1,000 ML IV SCH ×2 (09:41→20:49)
[2021-09-23] MEDS: levETIRAcetam 500 MG in NS 100 ML IV SCH ×2 (09:41→20:34)
[2021-09-23] MEDS: PANTOPRAZOLE SODIUM 40 MG/VIAL (PROTONIX) IVP SCH (09:42)
[2021-09-23] MEDS: ASPIRIN 81 MG TAB.CHEW PO SCH (09:42)
[2021-09-23] MEDS: FUROSEMIDE 40 MG TABLET PO SCH (09:43)
[2021-09-23] MEDS: CARVEDILOL 3.125 MG TABLET (COREG) PO SCH ×2 (09:43→20:37)
[2021-09-23] MEDS: POTASSIUM CHLORIDE 20 MEQ TAB.PRT.SR PO SCH ×2 (09:43→20:34)
[2021-09-23] MEDS: BALSAM PERU/CASTOR OIL 56.7 GM OINT...G. TP SCH (09:44)
[2021-09-23] MEDS: DESMOPRESSIN ACETATE 4 MCG/ML AMP SUBCUT SCH ×2 (09:44→20:37)
[2021-09-23] MEDS: ENOXAPARIN SODIUM 40 MG/0.4 ML SYRINGE SUBCUT SCH (10:06)
[2021-09-23] MEDS: FUROSEMIDE 20 MG TABLET PO SCH (17:30)
--- NOTE | 2021-09-23 20:00 | NUR ---
OPENING NOTE RECEIVED BEDSIDE REPORT FROM MYRIAM RN. PT WAS INTUBATED AND RESPOND TO PAIN ONLY. WITH 7.5 ET/25 AT THE LIP. VENT SETTINGS: AC RR 20, TV 500, 100% FI02, AND PEEP OF 5. RIGHT UPPER ARM DOUBLE LUMEN PICC LINE IN PLACE. PT HOB ELEVATED 45 DEGREES. PT IS SR WITH OCCASIONAL PVC'S. MONTOYA IN PLACE DRAINING CASSIDY COLOR URINE TO GRAVITY. ALL SAFETY PRECAUTIONS IN PLACE
[2021-09-24] VITALS (36 sets, daily range): BP systolic 93–124
[2021-09-24] MEDS: PIPERACILLIN/TAZO 4.5GM/DEX-IS 100 ML IV SCH (05:27)
[2021-09-24 06:59] LABS: BASOPHILS % (AUTO) 0.2 % (0.0-2.0); EOSINOPHILS # (AUTO) 0.1 K/uL (0.0-0.4); EOSINOPHILS % (AUTO) 0.9 % (0.0-4.0); HEMATOCRIT 24.4 % (36-48); HEMOGLOBIN 8.1 g/dL (12.0-16.0); LYMPHOCYTES # (AUTO) 0.9 K/uL (1.0-5.5); LYMPHOCYTES % (AUTO) 11.5 % (20.5-51.5); MEAN CORPUSCULAR HEMOGLOBIN 27 pg (27-31); MEAN CORPUSCULAR HGB CONC 33 % (32-36); MEAN CORPUSCULAR VOLUME 80 fL (79.0-98.0); MONOCYTES # (AUTO) 0.7 K/uL (0.0-1.0); MONOCYTES % (AUTO) 8.6 % (1.7-9.3); NEUTROPHILS # (AUTO) 6.4 K/uL (1.8-7.7); NEUTROPHILS % (AUTO) 78.8 % (40.0-70.0); PLATELET COUNT (AUTO) 176 K/uL (130-430); RED BLOOD CELL COUNT(AUTO) 3.04 MIL/uL (4.2-6.2); RED CELL DISTRIBUTION WIDTH 18.9 % (9.0-15.0); WHITE BLOOD COUNT (AUTO) 8.1 K/uL (4.8-10.8)
[2021-09-24] MEDS: CARVEDILOL 3.125 MG TABLET (COREG) PO SCH ×2 (08:50→21:58)
[2021-09-24] MEDS: FUROSEMIDE 40 MG TABLET PO SCH (08:51)
[2021-09-24] MEDS: DESMOPRESSIN ACETATE 4 MCG/ML AMP SUBCUT SCH ×2 (08:52→22:00)
[2021-09-24] MEDS: ENOXAPARIN SODIUM 40 MG/0.4 ML SYRINGE SUBCUT SCH (08:57)
[2021-09-24] MEDS: PANTOPRAZOLE SODIUM 40 MG/VIAL (PROTONIX) IVP SCH (08:59)
[2021-09-24] MEDS: POTASSIUM CHLORIDE 20 MEQ TAB.PRT.SR PO SCH (09:00)
[2021-09-24] MEDS: levETIRAcetam 500 MG in NS 100 ML IV SCH ×2 (09:03→21:59)
[2021-09-24] MEDS: ASPIRIN 81 MG TAB.CHEW PO SCH (09:12)
[2021-09-24 10:37] LABS: ANION GAP 8 (5-15); CALCIUM 7.6 mg/dL (8.4-11.0); CHLORIDE 99 mmol/L (98-107); CREATININE 1.38 mg/dL (0.55-1.30); GLUCOSE 122 mg/dL (70-99); POTASSIUM 4.3 mmol/L (3.5-5.1); SODIUM SERUM 133 mmol/L (136-145); UREA NITROGEN, BLOOD 46 mg/dL (8-21)
[2021-09-24] MEDS: KCL 20 mEq in D5W 1000 mL 1,000 ML IV SCH (12:36)
--- NOTE | 2021-09-24 13:18 | NUR ---
rt notes 1318 Placed pt on CPAP 5 PS12 30% FIO2, Per Dr Shell's order. Within 5 minutes, pt started to be tachypneic. tried coaching pt, didn't work. Pt didnt tolerate cpap trial. will continue to monitor pt. Will notify RN.
[2021-09-24] MEDS: BALSAM PERU/CASTOR OIL 56.7 GM OINT...G. TP SCH (14:19)
[2021-09-24] MEDS: CEFEPIME 2 GM in D5W 100 ML IV SCH (14:19)
--- NOTE | 2021-09-24 15:15 | NUR ---
wOUNDCARE PERFORMED PER ORDERS
--- NOTE | 2021-09-24 15:48 | NUR ---
[place] CARE EDUCATION PROVIDED
[2021-09-24] MEDS: FUROSEMIDE 20 MG TABLET PO SCH (17:14)
--- NOTE | 2021-09-24 19:48 | NUR ---
Assumed pt care bedside report received from Evaristo CARMICHAEL, met pt awake alert follows command, no sedation calm cooperaties with care intubated, ETT to Ventilator FIO2 30% TV 500 PEEP 5 O2 SAT 100%, tolerating well denies pain no sign of distress noted, NGT left nares with tube feeding position verified by auscultation no residual, rectal tube/oley to gravity, oral and perineal care done. Support at the bedside to alleviates anxiety, education on care plan, reorientation to immediate environment, condition n admission and progress of healing. Will continue to monitor and treat as per care plan.
--- NOTE | 2021-09-24 19:50 | NUR ---
Pt's called for updates on pt's condition, minimal given as per report received from esdras RN. Also gave the phone to respiratory therapist to educates more on the progress weaning pt off ventilator as this concerns family more.
[2021-09-24] MEDS: POTASSIUM CHLORIDE 20 MEQ/PKT PACKET PO SCH (22:28)
[2021-09-25] VITALS (31 sets, daily range): BP systolic 88–136
[2021-09-25] MEDS: KCL 20 mEq in D5W 1000 mL 1,000 ML IV SCH ×2 (02:20→21:46)
[2021-09-25] MEDS: CEFEPIME 2 GM in D5W 100 ML IV SCH ×2 (02:21→13:17)
--- NOTE | 2021-09-25 03:30 | NUR ---
Complete bed bath with CHG, linen changed oral care/suction, wound care with dressing changed, pt tolerated well and repositioned for comfort vitals signs stable.
[2021-09-25 05:52] LABS: BASOPHILS % (AUTO) 0.5 % (0.0-2.0); EOSINOPHILS # (AUTO) 0.1 K/uL (0.0-0.4); EOSINOPHILS % (AUTO) 0.9 % (0.0-4.0); HEMATOCRIT 29.1 % (36-48); HEMOGLOBIN 9.5 g/dL (12.0-16.0); LYMPHOCYTES # (AUTO) 1.6 K/uL (1.0-5.5); LYMPHOCYTES % (AUTO) 16.2 % (20.5-51.5); MEAN CORPUSCULAR HEMOGLOBIN 26 pg (27-31); MEAN CORPUSCULAR HGB CONC 33 % (32-36); MEAN CORPUSCULAR VOLUME 80 fL (79.0-98.0); MONOCYTES # (AUTO) 0.9 K/uL (0.0-1.0); NEUTROPHILS % (AUTO) 73.4 % (40.0-70.0); PLATELET COUNT (AUTO) 213 K/uL (130-430); RED BLOOD CELL COUNT(AUTO) 3.64 MIL/uL (4.2-6.2); RED CELL DISTRIBUTION WIDTH 18.5 % (9.0-15.0); WHITE BLOOD COUNT (AUTO) 9.5 K/uL (4.8-10.8)
[2021-09-25 06:13] LABS: ANION GAP 7 (5-15); CALCIUM 7.8 mg/dL (8.4-11.0); CHLORIDE 99 mmol/L (98-107); CREATININE 1.35 mg/dL (0.55-1.30); GLUCOSE 103 mg/dL (70-99); POTASSIUM 4.5 mmol/L (3.5-5.1); SODIUM SERUM 129 mmol/L (136-145); UREA NITROGEN, BLOOD 53 mg/dL (8-21)
--- NOTE | 2021-09-25 07:07 | NUR ---
Change of shift report given to Renan CARMICHAEL bedside updates as at this time vitals signs stable no sign of distress and no chnages in care plan.
[2021-09-25] MEDS: CARVEDILOL 3.125 MG TABLET (COREG) PO SCH ×3 (09:00→21:47)
[2021-09-25] MEDS: levETIRAcetam 500 MG in NS 100 ML IV SCH ×2 (10:33→21:45)
[2021-09-25] MEDS: ENOXAPARIN SODIUM 40 MG/0.4 ML SYRINGE SUBCUT SCH (10:34)
[2021-09-25] MEDS: POTASSIUM CHLORIDE 20 MEQ/PKT PACKET PO SCH ×2 (10:34→21:46)
[2021-09-25] MEDS: PANTOPRAZOLE SODIUM 40 MG/VIAL (PROTONIX) IVP SCH (10:35)
[2021-09-25] MEDS: ASPIRIN 81 MG TAB.CHEW PO SCH (10:36)
[2021-09-25] MEDS: FUROSEMIDE 40 MG TABLET PO SCH (10:37)
[2021-09-25] MEDS: BALSAM PERU/CASTOR OIL 56.7 GM OINT...G. TP SCH (10:38)
[2021-09-25] MEDS ORDERED: ALTEPLASE 2 MG VIAL MC ONE (13:30)
--- NOTE | 2021-09-25 15:39 | NUR ---
2ND REQUEST FOR ALTEPLASE FROM PHARMACY, THEY WILL DELIVER IT.
[2021-09-25] MEDS: LORazepam 2 MG/ML VIAL IVP PRN (17:17)
[2021-09-25] MEDS: FUROSEMIDE 20 MG TABLET PO SCH (17:32)
--- NOTE | 2021-09-25 17:56 | NUR ---
Nutrition F/U Admitting Diagnosis Decubitus ulcer/UTI Reviewed Pertinent Medical/Surgical Hx Medical Record Medical History Comment: PMH: Afib, CHF, bed-bound after fall w/ injury to knee per physician notes Pt also found w/ gangrenous/infected R and L trochanteric decubitus wounds and weakness of the bilat proximal LE, d/t underlying comorbid medical condition per physician notes 08/31 Sx debridement of R/L trochanteric decubitus wound w/ gangrene infection Boat Driver note 08/28 revealed: 1. Left Buttock near Ischium: Unstageable pressure ulcer, present on admission. 2. Right Buttock near Ischium: Stage IV pressure ulcer, present on admission. 3. Left Heel: Chronic unstageable pressure ulcer, present on admission. 4. Right Heel: Blanchable redness, present on admission SARS-CoV-2 Ag (Rapid) Negative 08/26 Subjective Information: RD bedside visit deferred d/t high workload. Per EMR review, trach/PEG per family; pt continues intubated/sedated; rectal tube in place w/ 500 ml stool output 09/24; Osmolite 1.2 TF infusing at 50 ml/hr 09/25 (TF was modified by GI 09/23); GRV: 0 ml 09/25; L NGT noted 09/18; Ve: 9.1, Tmax: 37.4'C; Nitish scale: 12 -- please refer to Boat Driver note 09/28 for details. Current TF prescription remains adequate/appropriate. Current Diet Order/Nutrition Support: Osmolite 1.2 at 50 ml/hr, Rajesh BID, Prosource daily, Free Water Flush: per physician d/t Hx of CHF via NGT x2 days Patient/Significant Other Unable To Verbalize Education Provided Not Indicated Pertinent Medications: lovenox, propofol at 2.915 ml/hr (77 kcal/day), SSI, lasix Pertinent Labs: WBC 9.5 WNL, Na 129 L, BUN 53 H, BG 103 H, Mg 1.7 WNL Height (Feet) 5 feet Height (Inches) 5.00 inches Weight (Pounds) 237 pounds NEW WT: 235#/106.7 kg (08/31); 214#/97.2 kg (09/09) 21# wt loss within 9 days, possibly d/t fluid shifts a/w CHF NEW Body Mass Index 35.6 kg/m2 %IBW 171 [place]/Adjusted Body Weight 125#/56.8 kg. 147#/66.9 kg Recent Weight Change Unable to verify Weight Status Obese Food Allergies Unable to verify NEW Estimated Energy Expenditure (kcals/day) 1701 ([facility]U 2009 d/t critical illness, intubated; Ve: 9.1, Tmax: 37.4'C) Estimated Protein Required (g/day) 85-114 (1.5-2 gm/kg IBW d/t obesity, wound healing, post-op) Estimated Fluid Required (l/day) Per physician d/t CHF Problem/Etiology/Signs/Symptoms *MODIFIED Increased nutritional needs R/T metabolic demands AEB estimated nutritional requirements for wound healing and post-op. *Ongoing Inadequate nutrition support R/T metabolic demands AEB estimated nutritional requirements for wound healing. *Ongoing Expected Outcomes/Goals - Monitor tolerance of nutrition w/ goal of pt meeting >80% of estimated nutritional needs, labs trending WNL, normal GI function, and skin integrity/wt maintenance Dietitian Recommendations * Osmolite 1.2 at 50 ml/hr, Rajesh BID, Prosource daily, Free Water Flush: per physician d/t Hx CHF via NGT Provides: 1660 kcal/day, 72 gm protein/day, and 984 ml free water/day Meets: 98% of estimated caloric needs and 85% of lower end of estimated protein needs * Consider prokinetic agent for improved gut motility Follow Up High Risk: F/U in 2-3 days
--- NOTE | 2021-09-25 18:07 | NUR ---
Dietitian Recommendations * Osmolite 1.2 at 50 ml/hr, Rajesh BID, Prosource daily, Free Water Flush: per physician d/t Hx CHF via NGT Provides: 1660 kcal/day, 72 gm protein/day, and 984 ml free water/day Meets: 98% of estimated caloric needs and 85% of lower end of estimated protein needs * Consider prokinetic agent for improved gut motility LP, RD Please refer to Nutrition F/U for details.
--- NOTE | 2021-09-25 19:30 | NUR ---
Bedside report received from Ronal CARMICHAEL met pt lethargic but eyes open, no sedation drip, follows verbal command, moves all extremities generalized weakness, vitals signs stable, ETT to vent FiO2 30% TV 500 peep 5 tolerating well oral care, NGT left nares placement checked verified by auscultation no residual, nunes perineal care and pt repositioned for comfort. Pt education on care plan reorientation to the unit bed in low position, ongoing monitor for safety and treat as per care morales.
[2021-09-25] MEDS: ACETAMINOPHEN 500 MG TABLET PO PRN (21:47)
[2021-09-26] VITALS (31 sets, daily range): BP systolic 93–185
[2021-09-26] MEDS: CEFEPIME 2 GM in D5W 100 ML IV SCH ×2 (02:24→14:10)
[2021-09-26] MEDS: LORazepam 2 MG/ML VIAL IVP PRN (04:48)
--- NOTE | 2021-09-26 05:30 | NUR ---
Complete bed bath with CHG, wound care, clean packed foam dressing applied, oral care suction and pt repositioned for comfort
--- NOTE | 2021-09-26 07:12 | NUR ---
Bedside SBAR at change of shift given to Radha RN continuity of care pt resting comfortably no changes in care plan and condition.
[2021-09-26 07:34] LABS: EOSINOPHILS # (AUTO) 0.1 K/uL (0.0-0.4); HEMOGLOBIN 8.4 g/dL (12.0-16.0); MEAN CORPUSCULAR HGB CONC 33 % (32-36); MONOCYTES # (AUTO) 0.7 K/uL (0.0-1.0); NEUTROPHILS # (AUTO) 7.7 K/uL (1.8-7.7)
[2021-09-26 07:42] LABS: BASOPHILS % (AUTO) 0.5 % (0.0-2.0); EOSINOPHILS % (AUTO) 0.7 % (0.0-4.0); HEMATOCRIT 25.1 % (36-48); LYMPHOCYTES # (AUTO) 1.1 K/uL (1.0-5.5); LYMPHOCYTES % (AUTO) 11.5 % (20.5-51.5); MEAN CORPUSCULAR HEMOGLOBIN 27 pg (27-31); MEAN CORPUSCULAR VOLUME 80 fL (79.0-98.0); MONOCYTES % (AUTO) 7.4 % (1.7-9.3); NEUTROPHILS % (AUTO) 79.9 % (40.0-70.0); PLATELET COUNT (AUTO) 243 K/uL (130-430); RED BLOOD CELL COUNT(AUTO) 3.15 MIL/uL (4.2-6.2); RED CELL DISTRIBUTION WIDTH 18.9 % (9.0-15.0); WHITE BLOOD COUNT (AUTO) 9.7 K/uL (4.8-10.8)
[2021-09-26 07:59] LABS: ANION GAP 7 (5-15); CALCIUM 7.2 mg/dL (8.4-11.0); CHLORIDE 97 mmol/L (98-107); CREATININE 1.34 mg/dL (0.55-1.30); GLUCOSE 106 mg/dL (70-99); POTASSIUM 4.8 mmol/L (3.5-5.1); SODIUM SERUM 127 mmol/L (136-145); UREA NITROGEN, BLOOD 59 mg/dL (8-21)
[2021-09-26] MEDS: levETIRAcetam 500 MG in NS 100 ML IV SCH ×2 (09:35→21:00)
[2021-09-26] MEDS: PANTOPRAZOLE SODIUM 40 MG/VIAL (PROTONIX) IVP SCH (09:35)
[2021-09-26] MEDS: ENOXAPARIN SODIUM 40 MG/0.4 ML SYRINGE SUBCUT SCH (09:36)
[2021-09-26] MEDS: FUROSEMIDE 40 MG TABLET PO SCH (09:37)
[2021-09-26] MEDS: ASPIRIN 81 MG TAB.CHEW PO SCH (09:37)
[2021-09-26] MEDS: POTASSIUM CHLORIDE 20 MEQ/PKT PACKET PO SCH ×2 (09:38→21:00)
[2021-09-26] MEDS: BALSAM PERU/CASTOR OIL 56.7 GM OINT...G. TP SCH (09:39)
[2021-09-26] MEDS: CARVEDILOL 3.125 MG TABLET (COREG) PO SCH ×2 (09:40→21:00)
[2021-09-26] MEDS: KCL 20 mEq in D5W 1000 mL 1,000 ML IV SCH ×2 (12:35→19:00)
[2021-09-26] MEDS ORDERED: SODIUM CHLORIDE 500 MG TABLET PO ONE (17:30)
[2021-09-26] MEDS: FUROSEMIDE 20 MG TABLET PO SCH (18:22)
[2021-09-27] VITALS (33 sets, daily range): BP systolic 114–181
[2021-09-27] MEDS: CEFEPIME 2 GM in D5W 100 ML IV SCH ×2 (02:00→14:25)
[2021-09-27] MEDS: KCL 20 mEq in D5W 1000 mL 1,000 ML IV SCH ×2 (04:00→21:30)
--- NOTE | 2021-09-27 06:00 | NUR ---
--PT CONT. WITH ETT-VENT. PT SYLVIE SX AND RTX WELL. POX HAS BEEN 99-100%. BS ARE DIMINISHED. PT OPENS EYES OCCASS. BUT DOESN'T FOLLOW S.COMMDS. IVS I/P VIA R.PICC-LINE. PT SYLVIE T.FEEDG WELL VIA OGT. RESID IS 10CC. U/O ADEQ-800CC OUT-YELL/CLR. RECTAL T. I/P ALSO>50CC OUT-BRN DIARRHEA. AM LABS DONE. PT CONT. IN A.FIB. AM CARE GIVEN. PT ENDORSED TO MYRIAM ALANIZ IN STABLE BUT GUARDED COND. FATIMAH CARMICHAEL
[2021-09-27 07:29] LABS: ANION GAP 9 (5-15); CALCIUM 7.7 mg/dL (8.4-11.0); CHLORIDE 96 mmol/L (98-107); CREATININE 1.27 mg/dL (0.55-1.30); GLUCOSE 113 mg/dL (70-99); POTASSIUM 5.2 mmol/L (3.5-5.1); SODIUM SERUM 126 mmol/L (136-145); UREA NITROGEN, BLOOD 63 mg/dL (8-21)
[2021-09-27] MEDS: FUROSEMIDE 40 MG TABLET PO SCH (08:55)
[2021-09-27] MEDS: PANTOPRAZOLE SODIUM 40 MG/VIAL (PROTONIX) IVP SCH (08:55)
[2021-09-27] MEDS: SODIUM CHLORIDE 500 MG TABLET PO SCH (08:56)
[2021-09-27] MEDS: POTASSIUM CHLORIDE 20 MEQ/PKT PACKET PO SCH (08:56)
[2021-09-27] MEDS: ASPIRIN 81 MG TAB.CHEW PO SCH (08:56)
[2021-09-27] MEDS: levETIRAcetam 500 MG in NS 100 ML IV SCH ×2 (08:58→21:15)
[2021-09-27] MEDS: ENOXAPARIN SODIUM 40 MG/0.4 ML SYRINGE SUBCUT SCH (09:41)
[2021-09-27] MEDS: BALSAM PERU/CASTOR OIL 56.7 GM OINT...G. TP SCH (09:42)
[2021-09-27] MEDS: CARVEDILOL 3.125 MG TABLET (COREG) PO SCH ×2 (09:43→21:25)
[2021-09-27] MEDS ORDERED: SODIUM POLYSTYRENE SULFONATE 15 GM/60 ML UDBTL GT ONE (12:45)
[2021-09-27] MEDS ORDERED: SODIUM CHLORIDE 500 MG TABLET PO ONE (14:00)
[2021-09-27 16:24] LABS: ANION GAP 8 (5-15); CALCIUM 7.5 mg/dL (8.4-11.0); CHLORIDE 98 mmol/L (98-107); CREATININE 1.29 mg/dL (0.55-1.30); GLUCOSE 119 mg/dL (70-99); POTASSIUM 4.4 mmol/L (3.5-5.1); SODIUM SERUM 129 mmol/L (136-145); UREA NITROGEN, BLOOD 62 mg/dL (8-21)
[2021-09-27] MEDS: FUROSEMIDE 20 MG TABLET PO SCH (17:22)
[2021-09-28] VITALS (31 sets, daily range): BP systolic 108–165
[2021-09-28] MEDS: CEFEPIME 2 GM in D5W 100 ML IV SCH ×2 (02:49→14:58)
--- NOTE | 2021-09-28 06:00 | NUR ---
[id number] CONT. ON VENT VIA ETT. PT OPENS EYES OCCASS BUT DOESN'T FOLLOW S. COMMDS. PT HAS BEEN IN A.FIB. VS HAVE BEEN STABLE. AFEBRILE. PT MOVES UPPER EXTREMS BUT MOVES FT OCCASS. PT HAS OGT I/P WITH T.FEEDG-PT SYLVIE WELL. RESID 5CC. PT HAS F/C-U/O ONLY 200CC. INFORMED THIS AM. PT USUALLY HAS 700-800CC. PT ALSO HAS RECTAL T.-800CC OUT-LIQ BRN. IV I/P VIA RIGHT ARM PICC-LINE. BATH AND AM CARE GIVEN. BUTTOCK WOUNDS CHANGED. AM LABS DONE. REPORT GIVEN TO JANY ALANIZ. GEN COND HAS BEEN STABLE/GUARDED. FATIMAH CARMICHAEL
--- NOTE | 2021-09-28 07:44 | NUR ---
RT NOTES Per daily SBT, CPAP was attempted, pt became tachypneic almost immediately. Did not improve despite attempts to educate pt. Pt does not appear to follow command, did not open eyes nor squeeze hand when asked. RN made aware. Will try CPAP again later.
--- NOTE | 2021-09-28 08:40 | NUR ---
NOTIFIED FOR CONSULT BETH CARLSON ORDERING PHY: REASON FOR CONSULT: TRACHEOSTOMY DIALED: [phone] SPOKE TO: DR. MORALES
[2021-09-28] MEDS: SODIUM CHLORIDE 500 MG TABLET PO SCH (08:56)
[2021-09-28] MEDS: FUROSEMIDE 40 MG TABLET PO SCH (08:57)
[2021-09-28] MEDS: ASPIRIN 81 MG TAB.CHEW PO SCH (08:58)
[2021-09-28] MEDS: CARVEDILOL 3.125 MG TABLET (COREG) PO SCH ×2 (08:58→22:00)
[2021-09-28 09:01] LABS: PROTHROMBIN TIME 10.3 SECS (9.5-12.5)
[2021-09-28] MEDS: levETIRAcetam 500 MG in NS 100 ML IV SCH ×2 (09:01→22:01)
[2021-09-28] MEDS: PANTOPRAZOLE SODIUM 40 MG/VIAL (PROTONIX) IVP SCH (09:02)
[2021-09-28] MEDS: BALSAM PERU/CASTOR OIL 56.7 GM OINT...G. TP SCH (09:33)
--- NOTE | 2021-09-28 09:53 | NUR ---
RT NOTES Pt appears to be resting comfortably, started CPAP 5 PS 12 trial. No adverse reaction noted. Will monitor pt. RN made aware. POST change H.R 77 RR 27-30 Sat 100%.
--- NOTE | 2021-09-28 10:15 | NUR ---
RT NOTES Pt. cont. to tolerate CPAP well. No distress noted. Spont. VT 408 RR 23 HR 74 SAT 100%. Will cont. to monitor pt.
[2021-09-28 12:07] LABS: ANION GAP 8 (5-15); CALCIUM 7.2 mg/dL (8.4-11.0); CHLORIDE 98 mmol/L (98-107); CREATININE 1.18 mg/dL (0.55-1.30); GLUCOSE 118 mg/dL (70-99); SODIUM SERUM 129 mmol/L (136-145); UREA NITROGEN, BLOOD 61 mg/dL (8-21)
[2021-09-28 12:12] LABS: POTASSIUM 2.8 mmol/L (3.5-5.1)
--- NOTE | 2021-09-28 12:55 | NUR ---
1200: CALLED UP PATIENT'S MR. MARIO EDMONDS ABOUT THE PLANNED TRACHEOSTOMY, MR. EDMONDS REFUSED TO GIVE CONSENT UNTIL THE SPEAKS WITH THE PATIENT'S DOCTOR. 1255 PM: BETH MERAZ SPOKE TO MR. MARIO EDMONDS ON THE PHONE ABOUT TRACHEOSTOMY CONSENT. DESPITE EXPLANATION OF THE IMPORTANCE AND PURPOSE OF THE TRACHE, REFUSED TO GIVE CONSENT. Addendum: 09/28/21 at 1343 by [facility] doctor of dental medicine 1315 HRS. MD BURGESS, MIGUE, INFORMED THAT PATIENT'S MR. MARIO EDMONDS REFUSED TO GIVE CONSENT, UNTIL THE DOCTOR TALKS TO HIM OF WHAT IS GOING ON AND ABOUT THE TRACHEOSTOMY.
[2021-09-28] MEDS ORDERED: KCL 40 mEq in 100 mL (PREMIX) 100 ML IV ONE (13:00)
[2021-09-28] MEDS: ENOXAPARIN SODIUM 40 MG/0.4 ML SYRINGE SUBCUT SCH (13:27)
--- NOTE | 2021-09-28 13:50 | NUR ---
RT NOTES Vent back to AC, due to tachypnea. RR in high 30s at this time. RN was notified.
[2021-09-28] MEDS: FUROSEMIDE 20 MG TABLET PO SCH (18:35)
--- NOTE | 2021-09-28 19:32 | NUR ---
END OF SHIFT REPORT: DR. BURGESS ORDERED TO GET CONSENT FROM MR. MARIO EDMONDS WHO REFUSED TO GIVE CONSENT AND WANTS TO TALK TO MD LANDA & MD BURGESS PAGED ABOUT REFUSED CONSENT. CBC BMP DAILY. K+ REPLACED BY DR. DELAROSA ORDERED 40 mEq KCl. LATER ON MR. Mark EDMONDS GAVE CONSENT. 1830 HRS. PAGED VA, BETH [phone] ABOUT TRACHEOSTOMY CONSENT BY ,IF WE ARE TO NOTIFY O.R.FOR SCHEDULE & NO RESPONSE YET AT 1937 HRS.
[2021-09-29] VITALS (30 sets, daily range): BP systolic 117–165
[2021-09-29] MEDS: CEFEPIME 2 GM in D5W 100 ML IV SCH ×2 (02:00→15:07)
[2021-09-29] MEDS: LORazepam 2 MG/ML VIAL IVP PRN (02:04)
--- NOTE | 2021-09-29 06:00 | NUR ---
[id number] CONT. WITH ETT-VENT. PT SYLVIE WELL WITH POX OF 100%. PT SYLVIE RTX AND SX WELL. IV I/P VIA R.ARM PICC-LINE. PT HAS MORBID OBESITY. PT HAS BEEN IN A.FIB-HR 100 OR LESS. VS HAVE BEEN STABLE. AFEBRILE. PT OPENS EYES OCCASS. BUT DOESN'T FOLLOW S. COMMDS. PT HAS MONTOYA CATH THAT HAS BEEN LEAKING-BALLOON HAS BEEN INFLATED. PT HAD LINEN SATURATED WITH URINE. PT HAD APROX 500-700CC OF U/O. INFORMED. RECTAL T. I/P WITH APROX 100CC OUT. BATH AND AM CARE DONE. PT'S DAUGHTER WAS IN EARLIER IN SHIFT. PT HAS DISPO FOR TRACH. CONSENT HAS BEEN SIGNED. T.FEEDG TURNED OFF(VIA OGT). THIS AM FOR POSSIBLE TRACH TODAY PER ROUNDS BY TENNILLE BRITTON THIS AM. PT'S FAMILY IS AWARE. PT'S WOUNDS HAVE BEEN CHANGED-D/I. AM LABS DONE. GEN COND. HAS BEEN STABLE/GUARDED. PT ENDORSED TO JANY CRUZ. FATIMAH CARMICHAEL
[2021-09-29 06:23] LABS: BASOPHILS % (AUTO) 0.4 % (0.0-2.0); EOSINOPHILS # (AUTO) 0.1 K/uL (0.0-0.4); EOSINOPHILS % (AUTO) 0.6 % (0.0-4.0); HEMOGLOBIN 8.1 g/dL (12.0-16.0); LYMPHOCYTES # (AUTO) 1.1 K/uL (1.0-5.5); LYMPHOCYTES % (AUTO) 13.7 % (20.5-51.5); MEAN CORPUSCULAR HEMOGLOBIN 26 pg (27-31); MEAN CORPUSCULAR HGB CONC 34 % (32-36); MEAN CORPUSCULAR VOLUME 78 fL (79.0-98.0); MONOCYTES # (AUTO) 0.6 K/uL (0.0-1.0); NEUTROPHILS # (AUTO) 6.3 K/uL (1.8-7.7); NEUTROPHILS % (AUTO) 78.3 % (40.0-70.0); PLATELET COUNT (AUTO) 234 K/uL (130-430); RED BLOOD CELL COUNT(AUTO) 3.06 MIL/uL (4.2-6.2); RED CELL DISTRIBUTION WIDTH 18.7 % (9.0-15.0); WHITE BLOOD COUNT (AUTO) 8.1 K/uL (4.8-10.8)
[2021-09-29 06:47] LABS: ALANINE AMINOTRANSFERASE 9 U/L (12-78); ALBUMIN 1.2 g/dL (3.4-4.8); ANION GAP 9 (5-15); ASPARTATE AMINOTRANSFERASE 18 U/L (10-37); CALCIUM 7.4 mg/dL (8.4-11.0); CHLORIDE 102 mmol/L (98-107); GLUCOSE 114 mg/dL (70-99); POTASSIUM 3.3 mmol/L (3.5-5.1); SODIUM SERUM 133 mmol/L (136-145); TOTAL BILIRUBIN 0.2 mg/dL (0.0-1.0); UREA NITROGEN, BLOOD 64 mg/dL (8-21)
[2021-09-29] MEDS: BALSAM PERU/CASTOR OIL 56.7 GM OINT...G. TP SCH (09:00)
[2021-09-29] MEDS: ENOXAPARIN SODIUM 40 MG/0.4 ML SYRINGE SUBCUT SCH (09:00)
[2021-09-29] MEDS: SODIUM CHLORIDE 500 MG TABLET PO SCH (10:45)
[2021-09-29] MEDS: PANTOPRAZOLE SODIUM 40 MG/VIAL (PROTONIX) IVP SCH (10:45)
[2021-09-29] MEDS: FUROSEMIDE 40 MG TABLET PO SCH (10:46)
[2021-09-29] MEDS: levETIRAcetam 500 MG in NS 100 ML IV SCH ×2 (10:46→21:00)
[2021-09-29] MEDS: ASPIRIN 81 MG TAB.CHEW PO SCH (10:46)
[2021-09-29] MEDS: CARVEDILOL 3.125 MG TABLET (COREG) PO SCH ×2 (10:47→21:00)
--- NOTE | 2021-09-29 11:09 | NUR ---
0749 TRIED PT ON CPAP TRIAL. CPAP 5 PS12, PT BECAME TACHYPNIC, PLACED BACK ON AC. JANY AWARE. Addendum: 09/29/21 at 1113 by Soumya Vu RT Amended: Links added.
[2021-09-29] MEDS ORDERED: POTASSIUM CHLORIDE 40 MEQ in D5W 250 ML IV ONE (12:15)
[2021-09-29] MEDS: FUROSEMIDE 20 MG TABLET PO SCH (19:08)
[2021-09-30] VITALS (33 sets, daily range): BP systolic 97–154
[2021-09-30] MEDS: CEFEPIME 2 GM in D5W 100 ML IV SCH ×2 (02:00→13:30)
--- NOTE | 2021-09-30 06:00 | NUR ---
. PT CONT ON VENT VIA ETT. PT HAS BEEN NPO AFTER MN. PT TAKEN FOR SURG FOR TRACH THIS AM. CONSENTS SIGND. IV I/P VIA R.ARM PICC-LINE. PT ENDORSED TO JANY LACKEY. FATIMAH CARMICHAEL
[2021-09-30 06:25] LABS: BASOPHILS % (AUTO) 0.5 % (0.0-2.0); EOSINOPHILS # (AUTO) 0.1 K/uL (0.0-0.4); EOSINOPHILS % (AUTO) 0.6 % (0.0-4.0); HEMATOCRIT 26.1 % (36-48); HEMOGLOBIN 8.9 g/dL (12.0-16.0); LYMPHOCYTES # (AUTO) 1.4 K/uL (1.0-5.5); LYMPHOCYTES % (AUTO) 15.9 % (20.5-51.5); MEAN CORPUSCULAR HEMOGLOBIN 27 pg (27-31); MEAN CORPUSCULAR HGB CONC 34 % (32-36); MEAN CORPUSCULAR VOLUME 78 fL (79.0-98.0); MONOCYTES # (AUTO) 0.6 K/uL (0.0-1.0); MONOCYTES % (AUTO) 6.3 % (1.7-9.3); NEUTROPHILS # (AUTO) 6.9 K/uL (1.8-7.7); NEUTROPHILS % (AUTO) 76.7 % (40.0-70.0); PLATELET COUNT (AUTO) 264 K/uL (130-430); RED BLOOD CELL COUNT(AUTO) 3.34 MIL/uL (4.2-6.2); RED CELL DISTRIBUTION WIDTH 19.3 % (9.0-15.0); WHITE BLOOD COUNT (AUTO) 9.1 K/uL (4.8-10.8)
[2021-09-30 07:04] LABS: ANION GAP 11 (5-15); CALCIUM 7.7 mg/dL (8.4-11.0); CHLORIDE 102 mmol/L (98-107); CREATININE 1.22 mg/dL (0.55-1.30); GLUCOSE 94 mg/dL (70-99); POTASSIUM 3.7 mmol/L (3.5-5.1); SODIUM SERUM 135 mmol/L (136-145); UREA NITROGEN, BLOOD 64 mg/dL (8-21)
--- NOTE | 2021-09-30 07:20 | NUR ---
SURGICAL TEAM BEDSIDE RECEIVING ANESTHESIA CONSENT FOR TRACHEOSTOMY PLACEMENT. REPORT RECEIVED FROM LEAH CARMICHAEL. PT VSS. NAD NOTED. WILL CONT TO ASSIST GETTING PATIENT TO SURGERY FOR TRACH PLACEMENT.
[2021-09-30] MEDS ORDERED: MIDAZOLAM HCL 2 MG/2 ML VIAL (VERSED) ONE (07:45)
[2021-09-30] MEDS ORDERED: NS IRRIG SOLN 1000 ML IR ONE (07:45)
[2021-09-30] MEDS ORDERED: fentaNYL CITRATE/PF 100 MCG/2 ML AMP ONE (07:45)
[2021-09-30] MEDS ORDERED: LIDOCAINE 1% 10 MG/ML, 20 ML MDV ONE ×2 (07:45)
[2021-09-30] MEDS ORDERED: ROCURONIUM BROMIDE 10 MG/ML (ZEMURON) ONE (07:45)
[2021-09-30] MEDS ORDERED: SEVOFLURANE 15 MIN GAS INH ONE (07:45)
[2021-09-30] MEDS ORDERED: NS 1000 ML IV.SOLN IV ONE (07:45)
--- NOTE | 2021-09-30 07:45 | NUR ---
RT NOTES Transported pt to OR with Lan card and LAN Fleming. Pt was bagged with 100% o2 via resus. bag to ETT. A/w remains secure, LAN Fleming took over bagging once in the unit.
--- NOTE | 2021-09-30 08:47 | NUR ---
RT NOTES with RN Bernadette and anesthesiologist, transported pt from OR to ICU, bagged with 100% O2 via resus. bag to trach tube. Trach tube was sutured and secured with Trach ties. Once in ICU, placed pt back on vent with same settings. FIO2 TO 0.50 per anesthesiologist, to be titrated back to previous O2 settings. Alarms remains set and audible at nurse's station, vent in red outlet. Spare trach tube, resus bag and obturator at bedside. Will monitor pt.
--- NOTE | 2021-09-30 08:51 | NUR ---
PT BACK FROM TRACH PLACEMENT, PORTEX SIZE 8 CUFFED TRACH PLACED. PER ANESTHESIA ZEUS, PT GIVEN 2MG VERSED AND 100MG FENTANYL DURING PROCEDURE. PER MD MORALES, GEN SURGERY WHO PLACED TRACH, OK TO RESUME ALL ORDERS INCLUDING TUBE FEEDING AND MEDS EXCEPT LOVENOX AND ASA. TO HOLD TODAY. ABLE TO CONTINUE LOVENOX AND ASA TOMORROW AM PER MD MORALES.
[2021-09-30] MEDS ORDERED: MORPHINE 4 MG INJ. 4 MG/ML VIAL IVP PRN (09:00)
[2021-09-30] MEDS: ENOXAPARIN SODIUM 40 MG/0.4 ML SYRINGE SUBCUT SCH (09:00)
[2021-09-30] MEDS: PANTOPRAZOLE SODIUM 40 MG/VIAL (PROTONIX) IVP SCH (09:11)
[2021-09-30] MEDS: SODIUM CHLORIDE 500 MG TABLET PO SCH (09:11)
[2021-09-30] MEDS: FUROSEMIDE 40 MG TABLET PO SCH (09:12)
[2021-09-30] MEDS: levETIRAcetam 500 MG in NS 100 ML IV SCH ×2 (09:12→21:00)
[2021-09-30] MEDS: CARVEDILOL 3.125 MG TABLET (COREG) PO SCH ×2 (09:12→21:00)
[2021-09-30] MEDS: BALSAM PERU/CASTOR OIL 56.7 GM OINT...G. TP SCH (09:32)
[2021-09-30] MEDS: HYDROmorphone 2 MG/ML VIAL IVP PRN ×2 (10:03→22:39)
--- NOTE | 2021-09-30 12:00 | NUR ---
Nutrition F/U Admitting Diagnosis Decubitus ulcer/UTI Reviewed Pertinent Medical/Surgical Hx Medical Record Medical History Comment: PMH: Afib, CHF, bed-bound after fall w/ injury to knee per physician notes Pt also found w/ gangrenous/infected R and L trochanteric decubitus wounds and weakness of the bilat proximal LE, d/t underlying comorbid medical condition per physician notes 08/31 Sx debridement of R/L trochanteric decubitus wound w/ gangrene infection Percussion Instructor note 08/28 revealed: 1. Left Buttock near Ischium: Unstageable pressure ulcer, present on admission. 2. Right Buttock near Ischium: Stage IV pressure ulcer, present on admission. 3. Left Heel: Chronic unstageable pressure ulcer, present on admission. 4. Right Heel: Blanchable redness, present on admission SARS-CoV-2 Ag (Rapid) Negative 08/26 Subjective Information: RD attended ICU rounds this morning. Primary RN reported that pt is s/p tracheostomy this morning and surgeon stated to resume TF afterwards. RD witnessed TF infusing without TF re-ordered. RD notified RN. Per EMR review, TF RAte: 50 ml/hr 09/29; GRV: 0 ml 09/29; TF Intakes: 700 ml 09/29; stool output: 50 ml 09/29; Nitish scale: 11 -- please refer to Percussion Instructor note 09/28 for details. Current TF prescription remains adequate/appropriate. Current Diet Order/Nutrition Support: NPO x0 days Patient/Significant Other Unable To Verbalize Education Provided Not Indicated Pertinent Medications: lovenox, SSI, lasix, protonix IV, zofran Pertinent Labs: Na 135 L, BUN 64 H, BG 94 WNL Height (Feet) 5 feet Height (Inches) 5.00 inches Weight (Pounds) 237 pounds NEW WT: 235#/106.7 kg (08/31); 214#/97.2 kg (09/09) 21# wt loss within 9 days, possibly d/t fluid shifts a/w CHF NEW Body Mass Index 35.6 kg/m2 %IBW 171 [place]/Adjusted Body Weight 125#/56.8 kg. 147#/66.9 kg Recent Weight Change Unable to verify Weight Status Obese Food Allergies Unable to verify NEWEstimated Energy Expenditure (kcals/day) 1704-198 (30-35 kcal/kg IBW d/t new trach to vent) Estimated Protein Required (g/day) 85-114 (1.5-2 gm/kg IBW d/t obesity, wound healing, post-op) Estimated Fluid Required (l/day) Per physician d/t CHF Problem/Etiology/Signs/Symptoms *MODIFIED Increased nutritional needs R/T metabolic demands AEB estimated nutritional requirements for wound healing and post-op. *Ongoing Inadequate nutrition support R/T metabolic demands AEB estimated nutritional requirements for wound healing. *Ongoing Expected Outcomes/Goals - Monitor tolerance of nutrition w/ goal of pt meeting >80% of estimated nutritional needs, labs trending WNL, normal GI function, and skin integrity/wt maintenance Dietitian Recommendations * Osmolite 1.2 at 50 ml/hr, Rajesh BID, Prosource daily, Free Water Flush: per physician d/t Hx CHF via NGT Provides: 1660 kcal/day, 72 gm protein/day, and 984 ml free water/day Meets: 97% of estimated caloric needs and 85% of lower end of estimated protein needs Follow Up Moderate Risk: F/U in 3-5 days
--- NOTE | 2021-09-30 12:05 | NUR ---
Dietitian Recommendations * Osmolite 1.2 at 50 ml/hr, Rajesh BID, Prosource daily, Free Water Flush: per physician d/t Hx CHF via NGT Provides: 1660 kcal/day, 72 gm protein/day, and 984 ml free water/day Meets: 97% of estimated caloric needs and 85% of lower end of estimated protein needs LP, RD Please refer to Nutrition F/U for details.
--- NOTE | 2021-09-30 15:30 | NUR ---
PAGED MD BEGAN FROM ID FOR RENEWAL OF MAXIPIME ORDER IF DESIRED. AWAITING CALL BACK.
--- NOTE | 2021-09-30 16:30 | NUR ---
SECOND ATTEMPT TO PAGE MD BEGAN FROM ID. AWAITING CALL BACK.
[2021-09-30] MEDS: FUROSEMIDE 20 MG TABLET PO SCH (18:09)
--- NOTE | 2021-09-30 19:18 | NUR ---
CARE ENDORSED TO JANY LYNN. SBAR AT BEDSIDE. PT VSS. NAD NOTED. NO IV DRIPS CURRENTLY. END OF CARE.
[2021-10-01] VITALS (36 sets, daily range): BP systolic 94–144
[2021-10-01] MEDS: CEFEPIME 2 GM in D5W 100 ML IV SCH ×2 (02:00→18:09)
--- NOTE | 2021-10-01 06:00 | NUR ---
--PT CONT. WITH NEW TRACH TO VENT . PT SYLVIE WELL. POX HAS BEEN 98-100%. PT HAS FACIAL GRIMACING. PT MED WITH DILAUDID 0.4MG FOR S/S OF PAIN. PT SEEM TO BE SLEEPING AFTER MED. PT HAS IV I/P VIA RIGHT ARM RIGHT ARM PICC-LINE. PT HAS F/C I/P. U/A-125LG-PBFY/CLR. PT HAS RECT. TUBE I/P-100CC OUT-BRN DIARRHEA. VS HAVE BEEN STABLE. SR-OCCASS S.TACH. GEN COND HAS BEEN STABLE/GUARDED. AM LABS DONE. GEN. COND HAS BEEN STABLE. FATIMAH RN
[2021-10-01 06:11] LABS: ANION GAP 9 (5-15); CALCIUM 7.7 mg/dL (8.4-11.0); CHLORIDE 105 mmol/L (98-107); CREATININE 1.21 mg/dL (0.55-1.30); GLUCOSE 128 mg/dL (70-99); POTASSIUM 4.4 mmol/L (3.5-5.1); SODIUM SERUM 135 mmol/L (136-145); UREA NITROGEN, BLOOD 67 mg/dL (8-21)
[2021-10-01 07:41] LABS: BASOPHILS # (AUTO) 0.1 K/uL (0.0-0.2); BASOPHILS % (AUTO) 1.4 % (0.0-2.0); EOSINOPHILS # (AUTO) 0.1 K/uL (0.0-0.4); EOSINOPHILS % (AUTO) 0.5 % (0.0-4.0); HEMATOCRIT 27.5 % (36-48); LYMPHOCYTES # (AUTO) 1.2 K/uL (1.0-5.5); LYMPHOCYTES % (AUTO) 11.2 % (20.5-51.5); MEAN CORPUSCULAR HEMOGLOBIN 26 pg (27-31); MEAN CORPUSCULAR HGB CONC 33 % (32-36); MEAN CORPUSCULAR VOLUME 80 fL (79.0-98.0); MONOCYTES # (AUTO) 0.8 K/uL (0.0-1.0); MONOCYTES % (AUTO) 7.9 % (1.7-9.3); NEUTROPHILS # (AUTO) 8.2 K/uL (1.8-7.7); PLATELET COUNT (AUTO) 229 K/uL (130-430); RED BLOOD CELL COUNT(AUTO) 3.43 MIL/uL (4.2-6.2); RED CELL DISTRIBUTION WIDTH 19.8 % (9.0-15.0); WHITE BLOOD COUNT (AUTO) 10.4 K/uL (4.8-10.8)
--- NOTE | 2021-10-01 07:45 | NUR ---
RT NOTES Per daily SBT, vent to CPAP 5 PS 12. Pt. became tachypneic almost immediately. Vent settings back to previous AC settings. RN was made aware. @0750 Dr León danielson, aware of failed CPAP at this time. stated, no CPAP today.
[2021-10-01] MEDS: levETIRAcetam 500 MG in NS 100 ML IV SCH ×2 (08:25→21:00)
[2021-10-01] MEDS: PANTOPRAZOLE SODIUM 40 MG/VIAL (PROTONIX) IVP SCH (08:25)
[2021-10-01] MEDS: SODIUM CHLORIDE 500 MG TABLET PO SCH (08:26)
[2021-10-01] MEDS: FUROSEMIDE 40 MG TABLET PO SCH (08:27)
[2021-10-01] MEDS: ENOXAPARIN SODIUM 40 MG/0.4 ML SYRINGE SUBCUT SCH (08:28)
[2021-10-01] MEDS: CARVEDILOL 3.125 MG TABLET (COREG) PO SCH ×2 (08:29→21:00)
[2021-10-01] MEDS: BALSAM PERU/CASTOR OIL 56.7 GM OINT...G. TP SCH (09:26)
[2021-10-01] MEDS: ACETAMINOPHEN 500 MG TABLET PO PRN (12:50)
[2021-10-01] MEDS: FUROSEMIDE 20 MG TABLET PO SCH (18:10)
[2021-10-02] VITALS (35 sets, daily range): BP systolic 91–146
[2021-10-02] MEDS: CEFEPIME 2 GM in D5W 100 ML IV SCH ×2 (02:00→13:45)
[2021-10-02 06:18] LABS: BASOPHILS % (AUTO) 0.3 % (0.0-2.0); EOSINOPHILS % (AUTO) 0.3 % (0.0-4.0); HEMATOCRIT 25.2 % (36-48); HEMOGLOBIN 8.4 g/dL (12.0-16.0); LYMPHOCYTES # (AUTO) 1.1 K/uL (1.0-5.5); LYMPHOCYTES % (AUTO) 11.7 % (20.5-51.5); MEAN CORPUSCULAR HEMOGLOBIN 27 pg (27-31); MEAN CORPUSCULAR HGB CONC 34 % (32-36); MEAN CORPUSCULAR VOLUME 79 fL (79.0-98.0); MONOCYTES # (AUTO) 0.8 K/uL (0.0-1.0); MONOCYTES % (AUTO) 7.9 % (1.7-9.3); NEUTROPHILS # (AUTO) 7.8 K/uL (1.8-7.7); NEUTROPHILS % (AUTO) 79.8 % (40.0-70.0); PLATELET COUNT (AUTO) 221 K/uL (130-430); RED BLOOD CELL COUNT(AUTO) 3.17 MIL/uL (4.2-6.2); RED CELL DISTRIBUTION WIDTH 19.4 % (9.0-15.0); WHITE BLOOD COUNT (AUTO) 9.7 K/uL (4.8-10.8)
[2021-10-02 06:25] LABS: PROTHROMBIN TIME 10.9 SECS (9.5-12.5)
[2021-10-02 06:32] LABS: ANION GAP 11 (5-15); CALCIUM 7.6 mg/dL (8.4-11.0); CHLORIDE 106 mmol/L (98-107); GLUCOSE 103 mg/dL (70-99); POTASSIUM 3.3 mmol/L (3.5-5.1); SODIUM SERUM 139 mmol/L (136-145); UREA NITROGEN, BLOOD 71 mg/dL (8-21)
[2021-10-02] MEDS ORDERED: MIDAZOLAM HCL 5 MG/5 ML VIAL ONE (06:58)
[2021-10-02] MEDS ORDERED: fentaNYL CITRATE/PF 100 MCG/2 ML AMP ONE (06:58)
[2021-10-02] MEDS: PANTOPRAZOLE SODIUM 40 MG/VIAL (PROTONIX) IVP SCH (09:22)
[2021-10-02] MEDS: levETIRAcetam 500 MG in NS 100 ML IV SCH ×2 (09:24→21:00)
[2021-10-02] MEDS: SODIUM CHLORIDE 500 MG TABLET PO SCH (09:24)
[2021-10-02] MEDS: CARVEDILOL 3.125 MG TABLET (COREG) PO SCH ×2 (09:24→21:00)
[2021-10-02] MEDS: ACETAMINOPHEN 500 MG TABLET PO PRN ×2 (09:27→17:19)
[2021-10-02] MEDS: ENOXAPARIN SODIUM 40 MG/0.4 ML SYRINGE SUBCUT SCH (09:30)
[2021-10-02] MEDS: BALSAM PERU/CASTOR OIL 56.7 GM OINT...G. TP SCH (09:32)
--- NOTE | 2021-10-02 15:18 | NUR ---
LATE ENTRY: 0800 AM: MD STRAUSS (EGD) CAME TO TO DO THE PEG, BUT FOUND PATIENT TO HAVE A LARGE VENTRAL HERNIA & UNABLE TO DO IT. HE INFORMED DR. BURGESS. PT. FOR CONSULT WITH SURGERY FOR PEG. 0900AM: DR. BURGESS NOTED, UNABLE TO DO PEG, ORDERED TO RESTART TUBE FEEDINGS. HAD CXR DONE, NGT OK TO USE. 1500 HRS. PAGED MD MERRITT (SURGERY) FOR PEG PLACEMENT CONSULT PROCEDURE 1520 HRS: PAGED MD DELAROSA, NOTED K+ 3.3, TO GIVE ELIXIR POTASSIUM CHLORIDE X 1 40 mEq Addendum: 10/02/21 at 1613 by [facility] deck lid fitter 1610 HRS. MD MERRITT (SURGERY) PAGED EARLIER BY RAW MATERIAL PLANNER MARY ABOUT PEG PLACEMENT. NOW PAGED MD MERRITT AGAIN FOR THE SECOND TIME.
[2021-10-02] MEDS ORDERED: POTASSIUM CHLORIDE 20 MEQ TAB.PRT.SR NG ONE (16:00)
[2021-10-02] MEDS: FUROSEMIDE 20 MG TABLET PO SCH (18:00)
[2021-10-02] MEDS ORDERED: KCL 20 mEq in 100 mL (PREMIX) 100 ML IV ONE ×3 (18:30→20:15)
[2021-10-02] MEDS: FUROSEMIDE 20 MG/2 ML VIAL IVP SCH (18:37)
[2021-10-02] MEDS ORDERED: FUROSEMIDE 20 MG/2 ML VIAL ONE (18:37)
[2021-10-03] VITALS (25 sets, daily range): BP systolic 99–184
[2021-10-03] MEDS: CEFEPIME 2 GM in D5W 100 ML IV SCH ×2 (02:00→14:44)
[2021-10-03] MEDS: HYDROmorphone 2 MG/ML VIAL IVP PRN (04:48)
[2021-10-03 06:40] LABS: BASOPHILS % (AUTO) 0.2 % (0.0-2.0); EOSINOPHILS # (AUTO) 0.1 K/uL (0.0-0.4); EOSINOPHILS % (AUTO) 0.6 % (0.0-4.0); HEMATOCRIT 23.1 % (36-48); HEMOGLOBIN 7.8 g/dL (12.0-16.0); LYMPHOCYTES # (AUTO) 1.1 K/uL (1.0-5.5); LYMPHOCYTES % (AUTO) 13.1 % (20.5-51.5); MEAN CORPUSCULAR HEMOGLOBIN 27 pg (27-31); MEAN CORPUSCULAR HGB CONC 34 % (32-36); MEAN CORPUSCULAR VOLUME 80 fL (79.0-98.0); MONOCYTES # (AUTO) 0.8 K/uL (0.0-1.0); MONOCYTES % (AUTO) 9.3 % (1.7-9.3); NEUTROPHILS # (AUTO) 6.2 K/uL (1.8-7.7); NEUTROPHILS % (AUTO) 76.8 % (40.0-70.0); PLATELET COUNT (AUTO) 191 K/uL (130-430); RED BLOOD CELL COUNT(AUTO) 2.89 MIL/uL (4.2-6.2); RED CELL DISTRIBUTION WIDTH 19.5 % (9.0-15.0); WHITE BLOOD COUNT (AUTO) 8.2 K/uL (4.8-10.8)
[2021-10-03 06:48] LABS: ANION GAP 10 (5-15); CALCIUM 7.5 mg/dL (8.4-11.0); CHLORIDE 110 mmol/L (98-107); CREATININE 1.45 mg/dL (0.55-1.30); GLUCOSE 112 mg/dL (70-99); POTASSIUM 3.2 mmol/L (3.5-5.1); SODIUM SERUM 142 mmol/L (136-145); UREA NITROGEN, BLOOD 82 mg/dL (8-21)
--- NOTE | 2021-10-03 07:30 | NUR ---
RECEIVED REPORT FROM PROPULSION GENERATOR REPAIRER NURSE. PATIENT IS RESTING IN BED ON TRACH TO VENT. PATIENT HAS NEW TRACHEOSTOMY PUT IN. PATIENT RESPIRATORY IS NORMAL AND SYMMETRICAL WITH 100% OXYGEN SATURATION. PATIENT HAS VISIBLE HERNIA IN HER STOMACH. PEG TUBE WAS NOT ABLE TO BE PLACED VIA EGD, SO SURGEON CONSULT HAS BEEN CALLED. PATIENT HAS R UPPER ARM PICC LINE RUNNING NS AT 10ML/HR. PATIENT HAS MULTIPLE WOUNDS ON HER BUTTOCKS AND LEGS. PATIENT IS UNRESPONSIVE VERBALLY, BUT DOES PULL AWAY FROM PAINFUL STIMULI.
[2021-10-03] MEDS: CARVEDILOL 3.125 MG TABLET (COREG) PO SCH ×2 (09:00→21:47)
--- NOTE | 2021-10-03 09:00 | NUR ---
DR. JENIFER CAPPS. HAS GIVEN THE OK FOR PATIENT TO DOWNGRADE TO TELEMETRY.
[2021-10-03] MEDS: levETIRAcetam 500 MG in NS 100 ML IV SCH ×2 (09:14→21:43)
[2021-10-03] MEDS: FUROSEMIDE 20 MG/2 ML VIAL IVP SCH (09:15)
[2021-10-03] MEDS: SODIUM CHLORIDE 500 MG TABLET PO SCH (09:15)
[2021-10-03] MEDS: PANTOPRAZOLE SODIUM 40 MG/VIAL (PROTONIX) IVP SCH (09:15)
[2021-10-03] MEDS: ENOXAPARIN SODIUM 40 MG/0.4 ML SYRINGE SUBCUT SCH (09:16)
[2021-10-03] MEDS: BALSAM PERU/CASTOR OIL 56.7 GM OINT...G. TP SCH (09:16)
[2021-10-03] MEDS ORDERED: THEOPHYLLINE ANHYDROUS 200 MG CAP.ER.24H PO ONE (14:00)
--- NOTE | 2021-10-03 19:40 | NUR ---
RT NOTES ASSISTED WITH PT TRANSFER TO ROOM 101A. PT REMAINED ON VENT DURING TRANSFER WITH O2 PLACED ON H TANK. NO RESPIRATORY DISTRESS NOTED. TRACH IS SECURE AND INTACT.
[2021-10-04 00:30] VITALS: BP_SYST 118
--- NOTE | 2021-10-04 01:42 | NUR ---
1999 Pt. to room from ICU, non responsive, trach to vent with rx'd settings, ngt to right nare patent, ngt in place. Report received, pt. made comfortable, rectal tube in place, nuens in place. 2200 POX had to be put onto pt. earlobe for reading, pox of 100%. BP difficult to get reading after 5 attempts received reading wnl form right lower leg. Hob at 30 degrees, feeding to ngt in place, no residual, will monitor. 0030 Pt. resting quietly, vss 0130 Page to RT for trach care, pt. is resting quietly.
[2021-10-04] MEDS: CEFEPIME 2 GM in D5W 100 ML IV SCH ×2 (02:15→14:56)
--- NOTE | 2021-10-04 06:15 | NUR ---
0600 Pt. needs met this shift, vss, tolerating ngt feeding, ngt in place with no residual of feeding. Hob at 30. degrees, trach to vent with rx'd settings, given bedbath, and skin care, will monitor.
[2021-10-04 08:00] VITALS: BP_SYST 97
[2021-10-04] MEDS: levETIRAcetam 500 MG in NS 100 ML IV SCH ×2 (09:00→20:25)
[2021-10-04] MEDS: HYDROmorphone 2 MG/ML VIAL IVP PRN (10:17)
[2021-10-04] MEDS: FUROSEMIDE 20 MG/2 ML VIAL IVP SCH (10:25)
[2021-10-04] MEDS: PANTOPRAZOLE SODIUM 40 MG/VIAL (PROTONIX) IVP SCH (10:25)
[2021-10-04] MEDS: SODIUM CHLORIDE 500 MG TABLET PO SCH (10:26)
[2021-10-04] MEDS: THEOPHYLLINE ANHYDROUS 200 MG CAP.ER.24H PO SCH (10:26)
[2021-10-04] MEDS: CARVEDILOL 3.125 MG TABLET (COREG) PO SCH ×2 (10:26→20:25)
[2021-10-04] MEDS: BALSAM PERU/CASTOR OIL 56.7 GM OINT...G. TP SCH (10:26)
[2021-10-04] MEDS: ENOXAPARIN SODIUM 40 MG/0.4 ML SYRINGE SUBCUT SCH (10:27)
[2021-10-04 12:24] VITALS: BP_SYST 138
[2021-10-04 12:26] VITALS: BP_SYST 115
[2021-10-04 16:26] VITALS: BP_SYST 113
[2021-10-04] MEDS: D5NS 1,000 ML IV SCH (17:04)
--- NOTE | 2021-10-04 17:18 | NUR ---
Pt tolerated 4 hours on CPAP today. Placed back to AC mode at 1715. Updated on pts' condition.
--- NOTE | 2021-10-04 17:25 | NUR ---
1330 PLACED ON CPAP 5, SP 12. 1725 PLACED BACK TO PREVIOUS SETTINGS, AC20, VT500, PEEP +5, FIO2 30%. PATIENT TOLERATED WELL ON CPAP.
[2021-10-04 20:01] VITALS: BP_SYST 107
[2021-10-05 01:35] VITALS: BP_SYST 132
[2021-10-05] MEDS: CEFEPIME 2 GM in D5W 100 ML IV SCH ×2 (01:42→14:25)
[2021-10-05] MEDS: HYDROmorphone 2 MG/ML VIAL IVP PRN (01:59)
--- NOTE | 2021-10-05 02:15 | NUR ---
1930 Pt. in bed, hob at 30 degrees, vent to trach at rx'd settings, ngt to right nare with feeding at rx'd rate, placement of ngt noted, no residual of feeding 2200 Pt. turned, bethel care given, rectal tube patent, hob at 30 degrees, 0030 Pt. with not distress, turned per protocol. 0200 Pt. noted to be pulling at gown, frowning noted, medicated for pain
--- NOTE | 2021-10-05 06:17 | NUR ---
0600 pt. needs met this shift, vss, turned q2, kept clean, rectal tube and nunes patent, trach to vent at rx'd settings, pox wnl., hob at30 degrees, no distress
[2021-10-05 06:52] LABS: BASOPHILS % (AUTO) 0.4 % (0.0-2.0); EOSINOPHILS # (AUTO) 0.1 K/uL (0.0-0.4); EOSINOPHILS % (AUTO) 0.8 % (0.0-4.0); HEMATOCRIT 23.3 % (36-48); HEMOGLOBIN 7.6 g/dL (12.0-16.0); LYMPHOCYTES # (AUTO) 1.1 K/uL (1.0-5.5); LYMPHOCYTES % (AUTO) 18.6 % (20.5-51.5); MEAN CORPUSCULAR HEMOGLOBIN 27 pg (27-31); MEAN CORPUSCULAR HGB CONC 33 % (32-36); MEAN CORPUSCULAR VOLUME 81 fL (79.0-98.0); MONOCYTES # (AUTO) 0.5 K/uL (0.0-1.0); MONOCYTES % (AUTO) 8.4 % (1.7-9.3); NEUTROPHILS # (AUTO) 4.4 K/uL (1.8-7.7); NEUTROPHILS % (AUTO) 71.8 % (40.0-70.0); PLATELET COUNT (AUTO) 172 K/uL (130-430); RED BLOOD CELL COUNT(AUTO) 2.88 MIL/uL (4.2-6.2); RED CELL DISTRIBUTION WIDTH 21.4 % (9.0-15.0); WHITE BLOOD COUNT (AUTO) 6.1 K/uL (4.8-10.8)
[2021-10-05 06:54] LABS: ANION GAP 11 (5-15); CALCIUM 7.5 mg/dL (8.4-11.0); CHLORIDE 111 mmol/L (98-107); CREATININE 1.52 mg/dL (0.55-1.30); GLUCOSE 131 mg/dL (70-99); POTASSIUM 3.2 mmol/L (3.5-5.1); SODIUM SERUM 143 mmol/L (136-145); UREA NITROGEN, BLOOD 77 mg/dL (8-21)
--- NOTE | 2021-10-05 07:30 | NUR ---
MORNING ROUNDS: PATIENT CLOSED EYES.SLEEPING. ON TRACH VENT,WITH FIO2=30%. WITH GOOD SATURATION. LEFT NARES NG TUBE FEEDS ON GOING. MONTOYA IN SITU DRAINING TO YELLOW URINE. FLEXI SEAL DRAINING LOOSE STOOLS. SAFETY MEASURES RENDERED. CONTINUE TO MONITOR.
[2021-10-05 08:00] VITALS: BP_SYST 142
[2021-10-05] MEDS: SODIUM CHLORIDE 500 MG TABLET PO SCH (09:35)
[2021-10-05] MEDS: CARVEDILOL 3.125 MG TABLET (COREG) PO SCH ×2 (09:35→21:19)
[2021-10-05] MEDS: PANTOPRAZOLE SODIUM 40 MG/VIAL (PROTONIX) IVP SCH (09:36)
[2021-10-05] MEDS: THEOPHYLLINE ANHYDROUS 200 MG CAP.ER.24H PO SCH (09:36)
[2021-10-05] MEDS: levETIRAcetam 500 MG in NS 100 ML IV SCH ×2 (09:37→21:09)
[2021-10-05] MEDS: FUROSEMIDE 20 MG/2 ML VIAL IVP SCH (09:37)
[2021-10-05] MEDS: ENOXAPARIN SODIUM 40 MG/0.4 ML SYRINGE SUBCUT SCH (09:42)
[2021-10-05] MEDS: BALSAM PERU/CASTOR OIL 56.7 GM OINT...G. TP SCH (09:45)
[2021-10-05] MEDS: D5NS 1,000 ML IV SCH (10:37)
[2021-10-05 11:22] VITALS: BP_SYST 132
--- NOTE | 2021-10-05 15:22 | NUR ---
Nutritional F/U Admitting Diagnosis Decubitus ulcer/UTI Reviewed Pertinent Medical/Surgical Hx Medical Record Medical History Comment: PMH: Afib, CHF, bed-bound after fall w/ injury to knee per physician notes Pt also found w/ gangrenous/infected R and L trochanteric decubitus wounds and weakness of the bilat proximal LE, d/t underlying comorbid medical condition per physician notes 08/31 Sx debridement of R/L trochanteric decubitus wound w/ gangrene infection Negative Cleaner note 08/28 revealed: 1. Left Buttock near Ischium: Unstageable pressure ulcer, present on admission. 2. Right Buttock near Ischium: Stage IV pressure ulcer, present on admission. 3. Left Heel: Chronic unstageable pressure ulcer, present on admission. 4. Right Heel: Blanchable redness, present on admission 10/01 S/P trach placement SARS-CoV-2 Ag (Rapid) Negative 08/26 Subjective Information: RD bedside visit deferred d/t high workload. Per physician notes, GI consulted for PEG, not able to place at this time d/t large ventral hernia, will need laparoscopic or robotic PEG. Per EMR, Nitish score 10 - deep wound to L/R buttocks, partial thickness wound to sacrum and wounds to L. heel and R. groin noted; 2+ pitting edema to BLE; abd is soft and non-distended w/ active bowel sounds; NGT to L. nares; TF Osmolite 1.2 at 50 ml/hr (10/04); GRV: 0 ml (10/04). Current TF provides 1440 kcals/day, 67 g protein/day and 1084 ml water/day, meeting 67% of lower end of estimated energy needs and 79% of lower end of estimated protein needs. Pt not meeting nutritional needs for wound healing. Current Diet Order/Nutrition Support: Osmolite 1.2 at 50 ml/hr FWF 100 ml x 1 day Patient/Significant Other Unable To Verbalize Education Provided Not Indicated Pertinent Medications: lovenox, SSI, lasix, protonix IV, D5NS at 60 ml/hr (245 kcals/day) Pertinent Labs: K 3.2 L, BUN 77 H, Cr 1.52 H, BG 131 H Height (Feet) 5 feet Height (Inches) 5.00 inches Weight (Pounds) 237 pounds NEW WT: 235#/106.7 kg (08/31); 214#/97.2 kg (09/09) 21# wt loss within 9 days, possibly d/t fluid shifts a/w CHF NEW Body Mass Index 35.6 kg/m2 %IBW 171 [place]/Adjusted Body Weight 125#/56.8 kg. 147#/66.9 kg Recent Weight Change Unable to verify Weight Status Obese Food Allergies Unable to verify NEW Estimated Energy Expenditure (kcals/day) 1704-198 (30-35 kcal/kg IBW d/t new trach to vent) Estimated Protein Required (g/day) 85-114 (1.5-2 gm/kg IBW d/t obesity, wound healing, post-op) Estimated Fluid Required (l/day) Per physician d/t CHF Problem/Etiology/Signs/Symptoms *MODIFIED Increased nutritional needs R/T metabolic demands AEB estimated nutritional requirements for wound healing and post-op. *Ongoing Inadequate nutrition support R/T metabolic demands AEB estimated nutritional requirements for wound healing. *Ongoing Expected Outcomes/Goals - Monitor tolerance of nutrition w/ goal of pt meeting >80% of estimated nutritional needs, labs trending WNL, normal GI function, and skin integrity/wt maintenance Dietitian Recommendations * Osmolite 1.2 at 50 ml/hr, Rajesh BID, Prosource daily, Free Water Flush: per physician d/t Hx CHF via NGT Provides: 1660 kcal/day, 72 gm protein/day, and 984 ml free water/day Meets: 97% of estimated caloric needs and 85% of lower end of estimated protein needs * Resume Rajesh and Prosource for wound healing Follow Up Moderate Risk: F/U in 3-5 days
--- NOTE | 2021-10-05 15:23 | NUR ---
Dietitian Recommendations * Osmolite 1.2 at 50 ml/hr, Rajesh BID, Prosource daily, Free Water Flush: per physician d/t Hx CHF via NGT Provides: 1660 kcal/day, 72 gm protein/day, and 984 ml free water/day Meets: 97% of estimated caloric needs and 85% of lower end of estimated protein needs * Resume Rajesh and Prosource for wound healing Please refer to Nutrition F/U for details.
[2021-10-05 15:59] VITALS: BP_SYST 140
--- NOTE | 2021-10-05 18:30 | NUR ---
EVENING ROUNDS: DAUGHTER AT THE BEDSIDE. WITH SAME VENT SETTING,WITH FIO2=30%,WITH GOOD O2 SATURATION. RIGHT UPPER ARM PICC LINE INTACT,IV FLUIDS RUNNING AT 60CC/H. LEFT NARES NG TUBE FEEDS ON GOING. FLEXI SEAL DRAINING TO YELLOWISH LOOSE STOOLS. BED LOCKED AT LOWEST POSITION. CONTINUE TO MONITOR.
[2021-10-05 21:20] VITALS: BP_SYST 157
[2021-10-06 00:56] VITALS: BP_SYST 106
[2021-10-06] MEDS: D5NS 1,000 ML IV SCH ×2 (01:35→18:15)
[2021-10-06] MEDS: CEFEPIME 2 GM in D5W 100 ML IV SCH ×2 (03:30→13:04)
--- NOTE | 2021-10-06 07:30 | NUR ---
MORNING ROUNDS: PATIENT RECEIVED EYES CLOSED.ON TRACH VENT,WITH FIO2=30%,GOOD SATURATION. LEFT NARES NG TUBE FEEDS ON GOING. RIGHT UPPER ARM PICC LINE,IV FLUIDS RUNNING WELL. MONTOYA DRAINING TO YELLOW URINE.FLEXI SEAL LOOSE YELLOWISH STOOLS.CONTINUE TO MONITOR.
--- NOTE | 2021-10-06 07:50 | NUR ---
UNABLE TO DO CPAP TRIAL AT THIS TIME. PT APPEARS TO BE AGITATED. PULLED NG FEEDING OUT. RN FLY MADE AWARE. NO RESPIRATORY DISTRESS NOTED.
[2021-10-06 08:00] VITALS: BP_SYST 141
[2021-10-06] MEDS: levETIRAcetam 500 MG in NS 100 ML IV SCH ×2 (09:23→21:33)
[2021-10-06] MEDS: PANTOPRAZOLE SODIUM 40 MG/VIAL (PROTONIX) IVP SCH (09:23)
[2021-10-06] MEDS: SODIUM CHLORIDE 500 MG TABLET PO SCH (09:24)
[2021-10-06] MEDS: FUROSEMIDE 20 MG/2 ML VIAL IVP SCH (09:24)
[2021-10-06] MEDS: CARVEDILOL 3.125 MG TABLET (COREG) PO SCH ×2 (09:25→21:34)
[2021-10-06] MEDS: ENOXAPARIN SODIUM 40 MG/0.4 ML SYRINGE SUBCUT SCH (09:26)
[2021-10-06] MEDS: THEOPHYLLINE ANHYDROUS 200 MG CAP.ER.24H PO SCH (09:28)
--- NOTE | 2021-10-06 09:30 | NUR ---
PULLED NG TUBE: PATIENT PULLED OUT HER NG TUBE.TUBE FEED STOPPED BY RT AND KEEP IT CLEAN.WILL RE INSERT ANOTHER NG TUBE.
[2021-10-06] MEDS: BALSAM PERU/CASTOR OIL 56.7 GM OINT...G. TP SCH (09:33)
--- NOTE | 2021-10-06 10:05 | NUR ---
LEFT NARES NG TUBE: INSERTED NG TUBE USING [place] 18 AT LEFT NARES,POSITIVE PLACEMENT HEARD, USING VIA AUSCULTATION. TUBE FEEDS CONTINUE ORDERED BY MD.NO RESIDUALS PRIOR TO GIVING MEDS/NG TUBE.FLUSHED WITH WATER AFTER.
[2021-10-06 11:23] VITALS: BP_SYST 142
--- NOTE | 2021-10-06 15:00 | NUR ---
WOUND CARE: WOUND CARE RENDERED TOGETHER WITH ANGÉLICA PAK.
--- NOTE | 2021-10-06 15:00 | NUR ---
WOUND RE-EVALUATION: Wound Consult received from Dr. Royal. Thank you, Dr. Royal, for the consult. Patient received in a Julian Bed with an air-loss mattress, nonverbal, nonresponsive to verbal commands. Patient is immobile and unable to turn independently. Nitish Score is a 13. Past Medical History: Atrial-Fibrillation, CHF. Recent Labs: WBC 6.1, RBC 2.88, hemoglobin 7.6, hematocrit 23.3, potassium 3.2, BUN 77, creatinine 1.52, glucose 131, calcium 7.5, albumin 1.2. Microbiology: Urine culture results positive for Pseudomonas aeruginosa ([employer]HE[employer]PER[employer]ENT), subsequent culture results negative. Pressure ulcer culture results positive for Pseudomonas aeruginosa (SHEET MET[employer] SUPERINTENDENT), Citrobacter freundii and Streptococcus group B. MRSA screen results negative. Stool C. difficile results x2 negative. Blood culture results negative. Intrinsic factors that delay wound healing: Atrial-Fibrillation, CHF, anemia, Hypoalbuminemia, hyperglycemia severe hypoalbuminemia. Extrinsic factors that delay wound healing: Decreased mobility. Wound Assessment: 1. 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 Wound bed has 80% red tissue, 20% yellow slough. No odor, scant sanguineous drainage. Periwound intact. Wound measures 9.3 cm x 8.5 cm x 3.0 cm. Sinus tract present at 8 o'clock measuring 3.2 cm. Wound is status post debridement by Dr. Chavis on 08/31/21. 2. Right Buttock near Ischium: Stage IV pressure ulcer, present on admission. Wound bed has 20% yellow slough, 20% red tissue, 60% pink tissue. No odor, scant sanguineous drainage. Periwound intact. Wound measures 3.0 cm x 3.0 cm x 6.0 cm. Sinus tract present at 8 o'clock measuring 5.0 cm. Sinus tract present at 11 o'clock measuring 6.0 cm with hard end feel. Wound is status post debridement by Dr. Chavis on 08/31/21. Recommend continue: Cleanse wounds with normal saline. Apply Venelex ointment to wound beds. First pack sinus tract areas, then pack wound areas with 1/2 inch iodoform packing strip. Apply moisture barrier cream to bethel-wounds. Cover with Sacral foam dressings. Perform wound care daily, and as needed for dressing soiling or dislodgement. 3. Sacral-Coccygeal area: Unstageable pressure ulcer. Wound bed has 60% yellow slough, 20% pink tissue, 10% dark discolored tissue, 10% red tissue. No odor, no drainage. Periwound intact. Wound measures 6.0 cm x 6.0 cm. Recommend: Cleanse wound with normal saline. Apply Venelex ointment to wound bed. Apply moisture barrier cream to bethel-wound. Cover with Sacral foam dressing. Perform wound care daily, and as needed for dressing soiling or dislodgement. 4. Left Heel Chronic unstageable pressure ulcer, present on admission. Site now has scar tissue, blanchable redness, and 1 small red discolored area. Eschar has fallen off. No odor, no drainage. Periwound intact. Recommend: Cover site with foam dressing. Elevate, offload and float bilateral heels with 1 pillow lengthwise under each extremity at all times. Do not allow heel to touch bed or other surfaces at any time. 5. Right Heel: Blanchable redness, present on admission. Recommend continue: Elevate, offload and float bilateral heels with 1 pillow lengthwise under each extremity at all times. Do not allow heel to touch bed or other surfaces at any time. Also recommend: Reposition patient side to side only every 2 hours with pillow support and off-load pressure areas with pillows for pressure re-distribution. Offload, elevate and float bilateral heels with one pillow lengthwise under each extremity at all times. Perform skin care and monitor skin integrity Q shift. Use moisture barrier cream on buttocks and other moisture susceptible areas QID and as needed for soiling. Place patient on a P500 low air-loss mattress.
[2021-10-06 15:39] VITALS: BP_SYST 120
--- NOTE | 2021-10-06 18:43 | NUR ---
EVENING ROUNDS: MAINTAINED SAME VENT SETTINGS,WITH FI02=30%,O2 SATURATION=98-99%.LEFT NARES NG TUBE ON GOING.RIGHT UPPER ARM PICC LINE ,IV FLUIDS RUNNING WELL.INTACT. MONTOYA DRAINING TO YELLOW URINE.FLEXI SEAL ,WITH LOOSE/WATERY YELLOWISH STOOLS,IN PLACE.PATIENT,CLOSED EYES. RESPOND TO STIMULI. CONDITION GUARDED.
[2021-10-06 19:00] VITALS: BP_SYST 132
[2021-10-06 20:00] VITALS: BP_SYST 132
[2021-10-07 00:04] VITALS: BP_SYST 122
[2021-10-07] MEDS: CEFEPIME 2 GM in D5W 100 ML IV SCH ×2 (01:50→14:49)
--- NOTE | 2021-10-07 07:40 | NUR ---
Initial notes On vent, Respiratory at bedside to try CPAP.Open her eyes at time, non verbal. ON NGT tolerating so far. No distress, IVF infusing well. Wii continue to monitor.
--- NOTE | 2021-10-07 08:07 | NUR ---
0755 DAILY CPAP TRIAL. CPAP 5 PS12,HR 107 97%. PT TOLERATING WILL CONT TO MONITOR. Addendum: 10/07/21 at 0808 by Soumya Vu RT Amended: Links added.
[2021-10-07 08:30] VITALS: BP_SYST 134
[2021-10-07] MEDS: levETIRAcetam 500 MG in NS 100 ML IV SCH ×2 (09:20→20:43)
[2021-10-07] MEDS: THEOPHYLLINE ANHYDROUS 200 MG CAP.ER.24H PO SCH (09:20)
[2021-10-07] MEDS: SODIUM CHLORIDE 500 MG TABLET PO SCH (09:21)
[2021-10-07] MEDS: FUROSEMIDE 20 MG/2 ML VIAL IVP SCH (09:22)
[2021-10-07] MEDS: PANTOPRAZOLE SODIUM 40 MG/VIAL (PROTONIX) IVP SCH (09:22)
[2021-10-07] MEDS: CARVEDILOL 3.125 MG TABLET (COREG) PO SCH ×2 (09:23→20:44)
[2021-10-07] MEDS: BALSAM PERU/CASTOR OIL 56.7 GM OINT...G. TP SCH (09:23)
[2021-10-07] MEDS: ENOXAPARIN SODIUM 40 MG/0.4 ML SYRINGE SUBCUT SCH (09:26)
--- NOTE | 2021-10-07 09:57 | NUR ---
pt did cpap trial from 0755 to 0940. pt tolerated well. savannah aware.will cont to monitor. Addendum: 10/07/21 at 1002 by Soumya Vu RT Amended: Links added.
--- NOTE | 2021-10-07 10:00 | NUR ---
PICTURE Wound Picture was taken yesterday as per report.
--- NOTE | 2021-10-07 10:19 | NUR ---
PER [facility], FAXED THE MEDICATION LIST AND CULTURES REPORT.
[2021-10-07] MEDS: D5NS 1,000 ML IV SCH ×2 (10:55→17:30)
[2021-10-07 11:30] VITALS: BP_SYST 130
--- NOTE | 2021-10-07 12:02 | NUR ---
Dr. Royal Updated: Dr. Royal was informed of new Unstageable Pressure Ulcer on Sacral area.
--- NOTE | 2021-10-07 14:26 | NUR ---
DENTURES Pt's daughter came to the nursing station demanding to speak with administration-she was upset that the pt's dentures were not in the room. She stated the pt had them when she was in ICU a few days ago. I assisted the daughter by 1st checking if the dentures were documented in the belongings list-they were, then going to ICU to see if the belongings were left in ICU-did not find them. Then i went to pt's room 101B and I did find the pt's dentures in a purple case in a belongings bag in the room. The dentures were given to pt's daughter.
[2021-10-07 15:22] VITALS: BP_SYST 125
--- NOTE | 2021-10-07 19:15 | NUR ---
OPENING NOTE REPORT RECEIVED FROM DAYSHIFT NURSE. PATIENT RECEIVED LYING IN BED, EYES CLOSED, NO S/S OF ACUTE DISTRESS NOTED. BREATHING IS EVEN AND UNLABORED, HOB RAISED, VENT TO TRACH ATTACHED AND OPERATING. IVF AND TUBE FEEDING INFUSING WELL. IV SITE PATENT, NO SIGNS OF INFILTRATION OR INFECTION NOTED. MONTOYA AND FLEXISEAL ATTACHED, SECURED, AND DRAINING BY GRAVITY. SEIZURE PADS ATTACHED TO SIDE RAIL. BED ALARM ON. BED IS LOCKED AND AT LOWEST POSITION. WILL CONTINUE TO MONITOR.
[2021-10-07 20:00] VITALS: BP_SYST 130
[2021-10-08 00:04] VITALS: BP_SYST 135
[2021-10-08] MEDS: CEFEPIME 2 GM in D5W 100 ML IV SCH ×2 (02:13→13:32)
[2021-10-08] MEDS: HYDROmorphone 2 MG/ML VIAL IVP PRN (03:08)
--- NOTE | 2021-10-08 06:24 | NUR ---
CLOSING NOTE PATIENT IN BED, RESTING, NO S/S OF ACUTE DISTRESS NOTED. BREATHING EVEN AND UNLABORED. HOB RAISED, VENT TO TRACH ATTACHED AND OPERATING. IVF AND TUBE FEEDING INFUSING WELL. IV SITE PATENT, NO SIGNS OF INFILTRATION OR INFECTION NOTED. MONTOYA AND FLEXISEAL ATTACHED, SECURED, AND DRAINING BY GRAVITY. ALL NEEDS MET THROUGHOUT SHIFT. FALL, SAFETY, AND ISOLATION PRECAUTIONS MAINTAINED THROUGHOUT SHIFT. WILL CONTINUE TO MONITOR UNTIL PATIENT CARE IS ENDORSED TO ONCOMING DAYSHIFT NURSE.
--- NOTE | 2021-10-08 07:24 | NUR ---
OPENING NOTE RECEIVED SBAR FROM NIGHT RN. PATIENT IN BED RESPIRATIONS EVEN NON LABORED BED IN LOW AND LOCKED POSITION CALL LIGHT WITHIN REACH. BED ALARM ON. VENT SETTINGS ORDERED
[2021-10-08 08:00] VITALS: BP_SYST 133
--- NOTE | 2021-10-08 09:10 | NUR ---
RT NOTE: 0910 Pt placed on CPAP 5, PS 12. Will keep in this settings as tolerated, will continue to monitor pt. Addendum: 10/08/21 at 1248 by Jane Pineda RT Amended: Links added.
[2021-10-08] MEDS: PANTOPRAZOLE SODIUM 40 MG/VIAL (PROTONIX) IVP SCH (09:11)
[2021-10-08] MEDS: FUROSEMIDE 20 MG/2 ML VIAL IVP SCH (09:11)
[2021-10-08] MEDS: THEOPHYLLINE ANHYDROUS 200 MG CAP.ER.24H PO SCH (09:12)
[2021-10-08] MEDS: CARVEDILOL 3.125 MG TABLET (COREG) PO SCH ×2 (09:12→21:51)
[2021-10-08] MEDS: SODIUM CHLORIDE 500 MG TABLET PO SCH (09:12)
[2021-10-08] MEDS: D5NS 1,000 ML IV SCH (09:13)
[2021-10-08] MEDS: levETIRAcetam 500 MG in NS 100 ML IV SCH ×2 (09:13→21:50)
[2021-10-08] MEDS: ENOXAPARIN SODIUM 40 MG/0.4 ML SYRINGE SUBCUT SCH (09:14)
[2021-10-08] MEDS: BALSAM PERU/CASTOR OIL 56.7 GM OINT...G. TP SCH (09:15)
--- NOTE | 2021-10-08 12:00 | NUR ---
FEEDING FLUSH 0 RESIDUAL, FLUSHED FREELY WITH 100ML OF WATER
--- NOTE | 2021-10-08 12:29 | NUR ---
oral care attempted to provide oral care, patient refused to open mouth. Turned head away from swab.
[2021-10-08 12:46] VITALS: BP_SYST 132
--- NOTE | 2021-10-08 16:39 | NUR ---
NURSE NOTE PROVIDED BED BATH, CHANGED LINENS, REPOSITIONED. PICC LINE SALINE LOCKED, TUBE FEEDING RUNNING ORDERED. NO SIGNS OF DISTRESS NOTED
[2021-10-08 17:10] VITALS: BP_SYST 122
--- NOTE | 2021-10-08 17:17 | NUR ---
RT NOTE: 1717 Patient placed back on AC mode due to tachypnea. Addendum: 10/08/21 at 1756 by Jane Pineda RT Amended: Links added.
--- NOTE | 2021-10-08 18:14 | NUR ---
MARILU MYRICK CALLED AND SAID SHE HAS A BED 315A FOR REPORT [phone] AFTER 1900
--- NOTE | 2021-10-08 18:55 | NUR ---
SPOKE WITH [employer] CM SAID SHE SAID THERE IS NO AUTH FOR PT TO GO AND SHE HAD TO GET AUTH FROM [facility] SAYING THEY CAN GO TO [facility] AND WILL FOLLOW UP LATER.
--- NOTE | 2021-10-08 19:36 | NUR ---
closing note Provided SBAR to night RN. Patient in bed, vent settings as ordered. IV SL. [place]rum draining by gravity and flexaseal in place. Endorsed care to night RN
[2021-10-08 21:00] VITALS: BP_SYST 137
--- NOTE | 2021-10-08 21:17 | NUR ---
MARILU MOY SPOKE WITH [facility](BED CONTROL) WHO SAID THEY WILL HOLD THE BED DUE TO UNABLE TO GET AUTH FROM [employer] SPOKE WITH SIXTO OLIVERA WITH [employer] AND INFORMED AND SHE WILL UPDATE US IF ANY MILI
[2021-10-09] VITALS: BP_SYST 98
--- NOTE | 2021-10-09 00:15 | NUR ---
Reposition & TURNING PATIENT on schedule off loading with pillows , also kept clean & dry as needed position change tolerated .
[2021-10-09] MEDS: CEFEPIME 2 GM in D5W 100 ML IV SCH (02:40)
--- NOTE | 2021-10-09 03:28 | NUR ---
Right upper Arm PICC LINE dressing change site clean PATIENT TOLERATE / .
--- NOTE | 2021-10-09 05:11 | NUR ---
wound care implemented buttocks areas & sacral as ordered , patient tolerate kept clean also dry as needed / .
[2021-10-09 07:45] VITALS: BP_SYST 101
[2021-10-09 07:45] LABS: BASOPHILS # (AUTO) 0.1 K/uL (0.0-0.2); BASOPHILS % (AUTO) 0.8 % (0.0-2.0); EOSINOPHILS # (AUTO) 0.1 K/uL (0.0-0.4); EOSINOPHILS % (AUTO) 1.3 % (0.0-4.0); HEMATOCRIT 26.7 % (36-48); HEMOGLOBIN 8.8 g/dL (12.0-16.0); LYMPHOCYTES # (AUTO) 1.7 K/uL (1.0-5.5); LYMPHOCYTES % (AUTO) 20.1 % (20.5-51.5); MEAN CORPUSCULAR HEMOGLOBIN 28 pg (27-31); MEAN CORPUSCULAR HGB CONC 33 % (32-36); MEAN CORPUSCULAR VOLUME 84 fL (79.0-98.0); MONOCYTES # (AUTO) 0.8 K/uL (0.0-1.0); MONOCYTES % (AUTO) 9.8 % (1.7-9.3); NEUTROPHILS # (AUTO) 5.7 K/uL (1.8-7.7); PLATELET COUNT (AUTO) 185 K/uL (130-430); RED BLOOD CELL COUNT(AUTO) 3.18 MIL/uL (4.2-6.2); RED CELL DISTRIBUTION WIDTH 22.9 % (9.0-15.0); WHITE BLOOD COUNT (AUTO) 8.4 K/uL (4.8-10.8)
[2021-10-09 08:19] LABS: ALANINE AMINOTRANSFERASE 12 U/L (12-78); ALBUMIN 1.4 g/dL (3.4-4.8); ANION GAP 11 (5-15); ASPARTATE AMINOTRANSFERASE 33 U/L (10-37); CALCIUM 8.2 mg/dL (8.4-11.0); CHLORIDE 112 mmol/L (98-107); CREATININE 1.59 mg/dL (0.55-1.30); GLUCOSE 91 mg/dL (70-99); SODIUM SERUM 142 mmol/L (136-145); TOTAL BILIRUBIN 0.5 mg/dL (0.0-1.0); UREA NITROGEN, BLOOD 73 mg/dL (8-21)
[2021-10-09 08:27] LABS: POTASSIUM 4.5 mmol/L (3.5-5.1)
[2021-10-09] MEDS: THEOPHYLLINE ANHYDROUS 200 MG CAP.ER.24H PO SCH (09:00)
--- NOTE | 2021-10-09 09:00 | NUR ---
rt notes 0900 Placed pt on CPAP 5, PS12 30%. Pt tolerating well. pt saturating 97%. will continue to monitor pt.
[2021-10-09] MEDS ORDERED: HYDROmorphone 2 MG/ML VIAL IVP PRN (09:15)
[2021-10-09] MEDS ORDERED: MORPHINE 4 MG INJ. 4 MG/ML VIAL IVP PRN (09:15)
[2021-10-09] MEDS: levETIRAcetam 500 MG in NS 100 ML IV SCH (09:38)
[2021-10-09] MEDS: PANTOPRAZOLE SODIUM 40 MG/VIAL (PROTONIX) IVP SCH (09:39)
[2021-10-09] MEDS: FUROSEMIDE 20 MG/2 ML VIAL IVP SCH (09:39)
[2021-10-09] MEDS: SODIUM CHLORIDE 500 MG TABLET PO SCH (09:40)
[2021-10-09] MEDS: BALSAM PERU/CASTOR OIL 56.7 GM OINT...G. TP SCH (09:40)
[2021-10-09] MEDS: ENOXAPARIN SODIUM 40 MG/0.4 ML SYRINGE SUBCUT SCH (09:40)
[2021-10-09] MEDS: CARVEDILOL 3.125 MG TABLET (COREG) PO SCH (09:41)
--- NOTE | 2021-10-09 11:44 | NUR ---
rt notes 1144 Switched pt back to AC 20. Pt started to get tachypneic. RN aware.
--- NOTE | 2021-10-09 11:57 | NUR ---
Patient discharging today transsfer to [facility] room [address] [place] [address] call report to [phone] medic 1 ambulance order picker/assembler 8:00PM [phone] trk# [id number] called the floor and spoke with patient nurse Alfredo, also call Mr. Peace who agreed to transfer
[2021-10-09] MEDS: D5NS 1,000 ML IV SCH (12:55)
[2021-10-09 14:30] VITALS: BP_SYST 112
[2021-10-09 16:26] VITALS: BP_SYST 115
[2021-10-09 16:40] VITALS: BP_SYST 115
--- NOTE | 2021-10-09 18:23 | NUR ---
Wound care done. Patient will be transferred to [facility] room 315-A. called to give report. was told to call later for the next shift to receive.
--- NOTE | 2021-10-09 19:20 | NUR ---
EMT ARRIVE FOR CRANE HOOKER REPORT GIVEN TO JANY BEAR AT BEDSIDE. MEDIC 1 AT BEDSIDE AT THIS TIME, PREPARING PATIENT FOR TRANSFER.
--- NOTE | 2021-10-09 19:41 | NUR ---
REPORT TO MARILU REPORT GIVEN TO JANY NICOLE. ALL QUESTIONS AND CONCERNS ADDRESSED.
--- NOTE | 2021-10-09 20:10 | NUR ---
DISCHARGE PATIENT IN [facility], NO S/S OF ACUTE DISTRESS. BREATHING EVEN AND UNLABORED, HOB RAISED, VENT TO TRACH ATTACHED AND OPERATING. IV SITE PATENT, IVF INFUSING WELL. NO SIGNS OF INFILTRATION OR INFECTION NOTED. MONTOYA AND FLEXISEAL ATTACHED AND DRAINING BY GRAVITY. NGT ATTACHED, SECURED, CLAMPED AT THIS TIME. ALL NEEDS MET. PATIENT ESCORTED OUT OF UNIT AT THIS TIME BY MEDIC 1 EMT AND JANY BEAR.
--- NOTE | 2021-10-27 13:23 | NUR ---
Patient's Spouse Updated: Late note for 10/09/21 at 1600 secondary to patient care. Patient's spouse, Renato Peace, was informed of a new Unstageable Pressure Ulcer on Sacral area.
== END 2021-10-09 20:10 | DRG 3 ==
LOC: SED 17:03 → SMU 21:56 → STU 09-12 14:51 → SIC 09-17 17:19 → STU 10-03 20:55
PROVIDERS: ADMIT Internal Medicine Hospice and Palliative Medicine; ATTEND Internal Medicine Hospice and Palliative Medicine
PROC: 0JBL0ZZ Excision of Right Upper Leg Subcutaneous Tissue and Fascia, Open Approach (ICD-10-PCS; 2021-08-31)
PROC: 0JBM0ZZ Excision of Left Upper Leg Subcutaneous Tissue and Fascia, Open Approach (ICD-10-PCS; principal; 2021-08-31 18:03)
PROC: 4A10X4Z Monitoring of Central Nervous Electrical Activity, External Approach (ICD-10-PCS; 2021-09-14)
PROC: 5A1955Z Respiratory Ventilation, Greater than 96 Consecutive Hours (ICD-10-PCS; 2021-09-18)
PROC: 0BH17EZ Insertion of Endotracheal Airway into Trachea, Via Natural or Artificial Opening (ICD-10-PCS; 2021-09-18)
PROC: 0B110F4 Bypass Trachea to Cutaneous with Tracheostomy Device, Open Approach (ICD-10-PCS; 2021-09-30)
PROC: 0DJ08ZZ Inspection of Upper Intestinal Tract, Via Natural or Artificial Opening Endoscopic (ICD-10-PCS; 2021-10-02)
DX: A41.9 Sepsis, unspecified organism (principal); L89.154 Pressure ulcer of sacral region, stage 4; J96.21 Acute and chronic respiratory failure with hypoxia; J69.0 Pneumonitis due to inhalation of food and vomit; E43 Unspecified severe protein-calorie malnutrition; G93.41 Metabolic encephalopathy; N39.0 Urinary tract infection, site not specified; L03.90 Cellulitis, unspecified; E66.2 Morbid (severe) obesity with alveolar hypoventilation; I48.20 Chronic atrial fibrillation, unspecified; E87.1 Hypo-osmolality and hyponatremia; G82.20 Paraplegia, unspecified; G93.1 Anoxic brain damage, not elsewhere classified; E87.0 Hyperosmolality and hypernatremia; C18.9 Malignant neoplasm of colon, unspecified; G95.9 Disease of spinal cord, unspecified; M86.9 Osteomyelitis, unspecified; N17.9 Acute kidney failure, unspecified; R47.01 Aphasia; Z99.11 Dependence on respirator [ventilator] status; L97.909 Non-pressure chronic ulcer of unspecified part of unspecified lower leg with unspecified severity; I96 Gangrene, not elsewhere classified; I50.32 Chronic diastolic (congestive) heart failure; L89.309 Pressure ulcer of unspecified buttock, unspecified stage; S31.000A Unspecified open wound of lower back and pelvis without penetration into retroperitoneum, initial encounter; X58.XXXA Exposure to other specified factors, initial encounter; I11.0 Hypertensive heart disease with heart failure; I48.0 Paroxysmal atrial fibrillation; K43.9 Ventral hernia without obstruction or gangrene; D64.9 Anemia, unspecified; E83.39 Other disorders of phosphorus metabolism; E83.41 Hypermagnesemia; E83.51 Hypocalcemia; E83.52 Hypercalcemia; G40.909 Epilepsy, unspecified, not intractable, without status epilepticus; E88.09 Other disorders of plasma-protein metabolism, not elsewhere classified; B96.5 Pseudomonas (aeruginosa) (mallei) (pseudomallei) as the cause of diseases classified elsewhere; E87.6 Hypokalemia; Z20.822 Contact with and (suspected) exposure to COVID-19; I27.20 Pulmonary hypertension, unspecified; M19.90 Unspecified osteoarthritis, unspecified site; R13.10 Dysphagia, unspecified; Z88.5 Allergy status to narcotic agent; Z88.8 Allergy status to other drugs, medicaments and biological substances; Z79.899 Other long term (current) drug therapy; Y93.89 Activity, other specified; Y92.89 Other specified places as the place of occurrence of the external cause; Y99.8 Other external cause status; Z68.35 Body mass index [BMI] 35.0-35.9, adult; Z74.01 Bed confinement status; Z85.038 Personal history of other malignant neoplasm of large intestine; Z87.440 Personal history of urinary (tract) infections
CPT/HCPCS: 36415; 36600; 43235; 70450-TC; 70470-TC; 71045; 72128; 72148; 76376; 76700-TC; 76770; 80048; 80053; 80076; 80202; 81000; 82140; 82803-TC; 82962; 83735; 83880; 84100; 84478; 85025; 85610-TC; 85651-TC; 85730-TC; 86140; 87040; 87070-TC; 87081; 87086; 87205-TC; 87230-TC; 92523; 92610-GN; 93005; 94002; 94003; 94640; 94760; 95816; 96365; 97110-GP; 97163-GP; 97530-GP; 99285; C1769; C9113; G0378; J0692; J0696; J1170; J1450; J1650; J1815; J1885; J1940; J1953; J2001; J2060; J2250; J2405; J2543; J2597; J2704; J2930; J2997; J3010; J3370; J3465; J3480; J3490; J7030; J7050; J7060; J7613